=== PATIENT | male | born 1980 | race Caucasian/White ===

== ENCOUNTER 2017-04-19 16:08 | Inpatient (IN) | payer OTHER ==
[~2017-04-19] VITALS: Ht 180.3 cm; Wt 78.2 kg
--- OUTSIDE RECORDS SUMMARY | 2017-04-19 22:48 | XMS REPORT ---
Author Author ARY BURNETT Organization [facility] Address [address] [place] [address] Care Team Providers Care Process Coach Name Role Phone ARY BURNETT Unavailable PROBLEMS Type Condition ICD9-CM Code LON57-FU Code Onset Dates Condition Status SNOMED Code Problem Uncomplicated alcohol dependence F10.20 Active 42790192 Problem Episode of recurrent major depressive disorder, unspecified depression episode severity F33.9 Active 636267345 Problem Alcohol abuse F10.10 Active 19012861 ALLERGIES No Information SOCIAL HISTORY Never Assessed PLAN OF CARE Activity Details Follow Up 2 - 3 Days Reason: VITAL SIGNS MEDICATIONS Unknown Medications RESULTS No Results PROCEDURES Procedure Date Ordered Result Body Site Alcohol and/or drug services Jul 31, 2016 IMMUNIZATIONS No Known Immunizations
--- OUTSIDE RECORDS SUMMARY | 2017-04-19 22:48 | XMS REPORT ---
Author Author ARY BURNETT Organization [facility] Address [address] [place] [address] Care Team Providers Care Bed Manager Name Role Phone ARY BURNETT Unavailable PROBLEMS Type Condition ICD9-CM Code VSO63-PY Code Onset Dates Condition Status SNOMED Code Problem Uncomplicated alcohol dependence F10.20 Active 84257926 Problem Episode of recurrent major depressive disorder, unspecified depression episode severity F33.9 Active 004039052 Problem Alcohol abuse F10.10 Active 52910733 ALLERGIES No Information SOCIAL HISTORY Never Assessed PLAN OF CARE VITAL SIGNS MEDICATIONS Unknown Medications RESULTS No Results PROCEDURES Procedure Date Ordered Result Body Site Alcohol and/or drug services August 27, 2016 IMMUNIZATIONS No Known Immunizations
--- OUTSIDE RECORDS SUMMARY | 2017-04-19 22:48 | XMS REPORT ---
Author Author ASHLEY WATERS Organization [facility] Address [address] [place] [address] Care Team Providers Care Contract Runner Name Role Phone ASHLEY WATERS Unavailable PROBLEMS Type Condition ICD9-CM Code FQT60-GJ Code Onset Dates Condition Status SNOMED Code Problem Alcohol abuse F10.10 Active 81466216 Problem Episode of recurrent major depressive disorder, unspecified depression episode severity F33.9 Active 164899575 Assessment Episode of recurrent major depressive disorder, unspecified depression episode severity F33.9 May, Active 401365568 ALLERGIES Unknown Allergies SOCIAL HISTORY No smoking Hx information available PLAN OF CARE VITAL SIGNS MEDICATIONS Unknown Medications RESULTS No Results PROCEDURES Procedure Date Ordered Related Diagnosis Body Site Psychotherapy, patient &/family, 30 minutes, established patient May 07, 2016 IMMUNIZATIONS No Known Immunizations
[2017-04-19] MEDS ORDERED: oxyCODONE/APAP 7.5-325 MG (PERCOCET 7.5) TABLET ONE (22:49)
--- OUTSIDE RECORDS SUMMARY | 2017-04-19 22:49 | XMS REPORT ---
Author Author ASHLEY WATERS Organization [employer] Address Unknown Phone Unavailable Care Team Providers Care Slate Roofer Helper Name Role Phone ASHLEY WATERS CP Unavailable Allergies No Known Allergies Problems No Known Problems Medications No Known Medications Results No Known Results Summary Purpose [employer] Submission
--- OUTSIDE RECORDS SUMMARY | 2017-04-19 22:49 | XMS REPORT ---
Author Author ARY BURNETT Organization [facility] Address [address] [place] [address] Care Team Providers Care Wide Area Network Systems Administrator Name Role Phone ARY BURNETT Unavailable PROBLEMS Type Condition ICD9-CM Code GCX77-[id number] Code Onset Dates Condition Status SNOMED Code Problem Uncomplicated alcohol dependence F10.20 Active 32688112 Problem Episode of recurrent major depressive disorder, unspecified depression episode severity F33.9 Active 117393984 Problem Alcohol abuse F10.10 Active 80228801 ALLERGIES No Information SOCIAL HISTORY Never Assessed PLAN OF CARE VITAL SIGNS MEDICATIONS Unknown Medications RESULTS No Results PROCEDURES No Known procedures IMMUNIZATIONS No Known Immunizations
--- OUTSIDE RECORDS SUMMARY | 2017-04-19 22:50 | XMS REPORT ---
Author Author ARY BURNETT Organization [facility] Address [address] [place] [address] Care Team Providers Care Plug Shaper Hand Name Role Phone ARY BURNETT Unavailable PROBLEMS Type Condition ICD9-CM Code LDE36-JH Code Onset Dates Condition Status SNOMED Code Problem Uncomplicated alcohol dependence F10.20 Active 21952468 Problem Episode of recurrent major depressive disorder, unspecified depression episode severity F33.9 Active 143598609 Problem Alcohol abuse F10.10 Active 04760436 ALLERGIES Unknown Allergies SOCIAL HISTORY No smoking Hx information available PLAN OF CARE Activity Details Follow Up 1 Week Reason: VITAL SIGNS MEDICATIONS Unknown Medications RESULTS No Results PROCEDURES Procedure Date Ordered Related Diagnosis Body Site Alcohol and/or drug services Jun 04, 2016 IMMUNIZATIONS No Known Immunizations
--- OUTSIDE RECORDS SUMMARY | 2017-04-19 22:50 | XMS REPORT ---
Author Author ASHLEY WATERS Organization [facility] Address [address] [place] [address] Care Team Providers Care Rn Clinical Trials Name Role Phone ASHLEY WATERS Unavailable PROBLEMS Type Condition ICD9-CM Code KWX71-DG Code Onset Dates Condition Status SNOMED Code Problem Uncomplicated alcohol dependence F10.20 Active 36555123 Problem Alcohol abuse F10.10 Active 95301514 Problem Episode of recurrent major depressive disorder, unspecified depression episode severity F33.9 Active 525105828 ALLERGIES Unknown Allergies SOCIAL HISTORY No smoking Hx information available PLAN OF CARE Activity Details Follow Up prn Reason: VITAL SIGNS MEDICATIONS Unknown Medications RESULTS No Results PROCEDURES Procedure Date Ordered Related Diagnosis Body Site Psychotherapy, patient &/family, 30 minutes, established patient Jun 04, 2016 IMMUNIZATIONS No Known Immunizations
--- OUTSIDE RECORDS SUMMARY | 2017-04-19 22:50 | XMS REPORT ---
Author Author ARY BURNETT Organization [facility] Address [address] [place] [address] Care Team Providers Care Alternative Dispute Resolution Mediator Name Role Phone ARY BURNETT Unavailable PROBLEMS Type Condition ICD9-CM Code RYZ31-BN Code Onset Dates Condition Status SNOMED Code Problem Uncomplicated alcohol dependence F10.20 Active 69194471 Problem Episode of recurrent major depressive disorder, unspecified depression episode severity F33.9 Active 402095329 Problem Alcohol abuse F10.10 Active 98295451 ALLERGIES No Information SOCIAL HISTORY Never Assessed PLAN OF CARE Activity Details Follow Up 1 Week Reason: VITAL SIGNS MEDICATIONS Unknown Medications RESULTS No Results PROCEDURES Procedure Date Ordered Result Body Site Alcohol and/or drug services October 30, 2016 IMMUNIZATIONS No Known Immunizations
--- OUTSIDE RECORDS SUMMARY | 2017-04-19 22:50 | XMS REPORT ---
Author Author ARY BURNETT Organization [facility] Address [address] [place] [address] Care Team Providers Care Broadcast Meteorologist Name Role Phone ARY BURNETT Unavailable PROBLEMS Type Condition ICD9-CM Code SMX10-AI Code Onset Dates Condition Status SNOMED Code Problem Uncomplicated alcohol dependence F10.20 Active 11107786 Problem Episode of recurrent major depressive disorder, unspecified depression episode severity F33.9 Active 142706632 Problem Alcohol abuse F10.10 Active 41963848 ALLERGIES No Information SOCIAL HISTORY Never Assessed PLAN OF CARE VITAL SIGNS MEDICATIONS Unknown Medications RESULTS No Results PROCEDURES Procedure Date Ordered Result Body Site Alcohol and/or drug services August 13, 2016 IMMUNIZATIONS No Known Immunizations
--- OUTSIDE RECORDS SUMMARY | 2017-04-19 22:50 | XMS REPORT ---
Author Author ARY BURNETT Organization [facility] Address [address] [place] [address] Care Team Providers Care [place]ing Supervisor Name Role Phone ARY BURNETT Unavailable PROBLEMS Type Condition ICD9-CM Code FKW11-YQ Code Onset Dates Condition Status SNOMED Code Problem Uncomplicated alcohol dependence F10.20 Active 88222123 Problem Episode of recurrent major depressive disorder, unspecified depression episode severity F33.9 Active 919084424 Problem Alcohol abuse F10.10 Active 43786158 ALLERGIES Unknown Allergies SOCIAL HISTORY No smoking Hx information available PLAN OF CARE Activity Details Follow Up 1 Week Reason: VITAL SIGNS MEDICATIONS Unknown Medications RESULTS No Results PROCEDURES Procedure Date Ordered Related Diagnosis Body Site Alcohol and/or drug services Jun 24, 2016 IMMUNIZATIONS No Known Immunizations
--- OUTSIDE RECORDS SUMMARY | 2017-04-19 22:50 | XMS REPORT ---
Author Author ASHLEY WATERS Organization [employer] Address Unknown Phone Unavailable Care Team Providers Care Bog Cutter Name Role Phone ASHLEY WATERS CP Unavailable Allergies No Known Allergies Problems Problem Type Condition Code Onset Dates Condition Status Assessment Uncomplicated alcohol dependence F10.20 Active Assessment Depressive disorder, not elsewhere classified F32.9 Active Medications No Known Medications Procedures Procedure Coding System Code Date Psychotherapy, patient &/family, 30 minutes, new patient CPT-4 69215 Feb Results No Known Results Summary Purpose [employer] Submission
--- OUTSIDE RECORDS SUMMARY | 2017-04-19 22:50 | XMS REPORT ---
Author Author ARY BURNETT Organization [facility] Address [address] [place] [address] Care Team Providers Care Metrology Manager Name Role Phone ARY BURNETT Unavailable PROBLEMS Type Condition ICD9-CM Code FDT96-UA Code Onset Dates Condition Status SNOMED Code Problem Uncomplicated alcohol dependence F10.20 Active 55609648 Problem Episode of recurrent major depressive disorder, unspecified depression episode severity F33.9 Active 481232747 Problem Alcohol abuse F10.10 Active 87652036 ALLERGIES No Information SOCIAL HISTORY Never Assessed PLAN OF CARE Activity Details Follow Up 1 Week Reason: VITAL SIGNS MEDICATIONS Unknown Medications RESULTS No Results PROCEDURES Procedure Date Ordered Result Body Site Alcohol and/or drug services Jul 23, 2016 IMMUNIZATIONS No Known Immunizations
--- OUTSIDE RECORDS SUMMARY | 2017-04-19 22:50 | XMS REPORT ---
Author Author ARY BURNETT Organization [facility] Address [address] [place] [address] Care Team Providers Care Cad Detailer Name Role Phone ARY BURNETT Unavailable PROBLEMS Type Condition ICD9-CM Code EGS27-BV Code Onset Dates Condition Status SNOMED Code Problem Uncomplicated alcohol dependence F10.20 Active 04525846 Problem Episode of recurrent major depressive disorder, unspecified depression episode severity F33.9 Active 730653250 Problem Alcohol abuse F10.10 Active 67037619 ALLERGIES No Information SOCIAL HISTORY Never Assessed PLAN OF CARE Activity Details Follow Up 1 Week Reason: VITAL SIGNS MEDICATIONS Unknown Medications RESULTS No Results PROCEDURES Procedure Date Ordered Result Body Site Alcohol and/or drug services Aug 04, 2016 IMMUNIZATIONS No Known Immunizations
--- OUTSIDE RECORDS SUMMARY | 2017-04-19 22:51 | XMS REPORT ---
Author Author ARY BURNETT Organization [facility] Address [address] [place] [address] Care Team Providers Care Livestock Dealer Name Role Phone ARY BURNETT Unavailable PROBLEMS Type Condition ICD9-CM Code TJR54-TA Code Onset Dates Condition Status SNOMED Code Problem Uncomplicated alcohol dependence F10.20 Active 43838076 Problem Alcohol abuse F10.10 Active 12839064 Problem Episode of recurrent major depressive disorder, unspecified depression episode severity F33.9 Active 446230516 ALLERGIES Unknown Allergies SOCIAL HISTORY No smoking Hx information available PLAN OF CARE Activity Details Follow Up 1 Week Reason: VITAL SIGNS MEDICATIONS Unknown Medications RESULTS No Results PROCEDURES Procedure Date Ordered Related Diagnosis Body Site AUDIT/DAST, OVER 30 MIN Apr 29, 2016 IMMUNIZATIONS No Known Immunizations
--- OUTSIDE RECORDS SUMMARY | 2017-04-19 22:52 | XMS REPORT ---
Author Author ARY BURNETT Organization [facility] Address [address] [place] [address] Care Team Providers Care Manager Treasury Name Role Phone ARY BURNETT Unavailable PROBLEMS Type Condition ICD9-CM Code PMB43-CJ Code Onset Dates Condition Status SNOMED Code Problem Uncomplicated alcohol dependence F10.20 Active 80861639 Problem Episode of recurrent major depressive disorder, unspecified depression episode severity F33.9 Active 167277071 Problem Alcohol abuse F10.10 Active 70961305 ALLERGIES No Information SOCIAL HISTORY Never Assessed PLAN OF CARE VITAL SIGNS MEDICATIONS Unknown Medications RESULTS No Results PROCEDURES Procedure Date Ordered Result Body Site Alcohol and/or drug services Jul 30, 2016 IMMUNIZATIONS No Known Immunizations
--- OUTSIDE RECORDS SUMMARY | 2017-04-19 22:53 | XMS REPORT ---
Author Author ARY BURNETT Organization [facility] Address [address] [place] [address] Care Team Providers Care Music Writer Name Role Phone ARY BURNETT Unavailable PROBLEMS Type Condition ICD9-CM Code OPE10-OR Code Onset Dates Condition Status SNOMED Code Problem Uncomplicated alcohol dependence F10.20 Active 56878079 Problem Episode of recurrent major depressive disorder, unspecified depression episode severity F33.9 Active 300321313 Problem Alcohol abuse F10.10 Active 66927940 ALLERGIES Unknown Allergies SOCIAL HISTORY No smoking Hx information available PLAN OF CARE Activity Details Follow Up 1 Week Reason: VITAL SIGNS MEDICATIONS Unknown Medications RESULTS No Results PROCEDURES Procedure Date Ordered Related Diagnosis Body Site Alcohol and/or drug services May 06, 2016 IMMUNIZATIONS No Known Immunizations
--- OUTSIDE RECORDS SUMMARY | 2017-04-19 22:53 | XMS REPORT ---
Author Author ARY BURNETT Organization [facility] Address [address] [place] [address] Care Team Providers Care Dairy Cattle Farm Manager Name Role Phone ARY BURNETT Unavailable PROBLEMS Type Condition ICD9-CM Code AWZ40-TN Code Onset Dates Condition Status SNOMED Code Problem Alcohol abuse F10.10 Active 75200694 Problem Episode of recurrent major depressive disorder, unspecified depression episode severity F33.9 Active 629775532 ALLERGIES Unknown Allergies SOCIAL HISTORY No smoking Hx information available PLAN OF CARE VITAL SIGNS MEDICATIONS Unknown Medications RESULTS No Results PROCEDURES No Known procedures IMMUNIZATIONS No Known Immunizations
--- OUTSIDE RECORDS SUMMARY | 2017-04-19 22:53 | XMS REPORT ---
Author Author ARY BURNETT Organization [facility] Address [address] [place] [address] Care Team Providers Care Wic Site Coordinator Name Role Phone ARY BURNETT Unavailable PROBLEMS Type Condition ICD9-CM Code GJX86-EB Code Onset Dates Condition Status SNOMED Code Problem Uncomplicated alcohol dependence F10.20 Active 40140128 Problem Episode of recurrent major depressive disorder, unspecified depression episode severity F33.9 Active 704726394 Problem Alcohol abuse F10.10 Active 50174828 ALLERGIES No Information SOCIAL HISTORY Never Assessed PLAN OF CARE VITAL SIGNS MEDICATIONS Unknown Medications RESULTS No Results PROCEDURES Procedure Date Ordered Result Body Site Alcohol and/or drug services August 06, 2016 IMMUNIZATIONS No Known Immunizations
--- OUTSIDE RECORDS SUMMARY | 2017-04-19 22:53 | XMS REPORT ---
Author Author ARY BURNETT Organization [facility] Address [address] [place] [address] Care Team Providers Care Wire Hanger Name Role Phone ARY BURNETT Unavailable PROBLEMS Type Condition ICD9-CM Code ZRM45-LH Code Onset Dates Condition Status SNOMED Code Problem Uncomplicated alcohol dependence F10.20 Active 89386097 Problem Episode of recurrent major depressive disorder, unspecified depression episode severity F33.9 Active 319506958 Problem Alcohol abuse F10.10 Active 53065592 ALLERGIES No Information SOCIAL HISTORY Never Assessed PLAN OF CARE Activity Details Follow Up 1 Week Reason: VITAL SIGNS MEDICATIONS Unknown Medications RESULTS No Results PROCEDURES Procedure Date Ordered Result Body Site Alcohol and/or drug services August 11, 2016 IMMUNIZATIONS No Known Immunizations
--- OUTSIDE RECORDS SUMMARY | 2017-04-19 22:53 | XMS REPORT ---
Author Author ASHLEY WATERS Organization [employer] Address Unknown Phone Unavailable Care Team Providers Care Organizational Development Director Name Role Phone ASHLEY WATERS CP Unavailable Allergies No Known Allergies Problems Problem Type Condition Code Onset Dates Condition Status Problem Episode of recurrent major depressive disorder, unspecified depression episode severity F33.9 Active Assessment Alcohol abuse F10.10 Active Problem Alcohol abuse F10.10 Active Assessment Episode of recurrent major depressive disorder, unspecified depression episode severity F33.9 Active Medications No Known Medications Procedures Procedure Coding System Code Date Psychotherapy, patient &/family, 30 minutes, established patient CPT-4 15103 Apr 23, 2016 Results No Known Results Summary Purpose [employer] Submission
--- OUTSIDE RECORDS SUMMARY | 2017-04-19 22:53 | XMS REPORT ---
Author Author ARY BURNETT Organization [facility] Address [address] [place] [address] Care Team Providers Care Latex Spooler Name Role Phone ARY BURNETT Unavailable PROBLEMS Type Condition ICD9-CM Code PCK22-QU Code Onset Dates Condition Status SNOMED Code Problem Uncomplicated alcohol dependence F10.20 Active 51214667 Problem Episode of recurrent major depressive disorder, unspecified depression episode severity F33.9 Active 060903074 Problem Alcohol abuse F10.10 Active 97470825 ALLERGIES No Information SOCIAL HISTORY Never Assessed PLAN OF CARE Activity Details Follow Up 1 Week, wednesday10/20/16 @8:30am to 9am Reason:subab f/u VITAL SIGNS MEDICATIONS Unknown Medications RESULTS No Results PROCEDURES Procedure Date Ordered Result Body Site Alcohol and/or drug services October 13, 2016 IMMUNIZATIONS No Known Immunizations
--- OUTSIDE RECORDS SUMMARY | 2017-04-19 22:53 | XMS REPORT ---
Author Author ARY BURNETT Organization [facility] Address [address] [place] [address] Care Team Providers Care Clerk Guide Name Role Phone ARY BURNETT Unavailable PROBLEMS Type Condition ICD9-CM Code KVK54-NO Code Onset Dates Condition Status SNOMED Code Problem Uncomplicated alcohol dependence F10.20 Active 43481337 Problem Episode of recurrent major depressive disorder, unspecified depression episode severity F33.9 Active 302345655 Problem Alcohol abuse F10.10 Active 72848254 ALLERGIES No Information SOCIAL HISTORY Never Assessed PLAN OF CARE VITAL SIGNS MEDICATIONS Unknown Medications RESULTS No Results PROCEDURES Procedure Date Ordered Result Body Site Alcohol and/or drug services August 20, 2016 IMMUNIZATIONS No Known Immunizations
--- OUTSIDE RECORDS SUMMARY | 2017-04-19 22:53 | XMS REPORT ---
Author Author ARY BURNETT Organization [facility] Address [address] [place] [address] Care Team Providers Care Quarter Section Ironer Name Role Phone ARY BURNETT Unavailable PROBLEMS Type Condition ICD9-CM Code YOB17-JA Code Onset Dates Condition Status SNOMED Code Problem Uncomplicated alcohol dependence F10.20 Active 90064028 Problem Episode of recurrent major depressive disorder, unspecified depression episode severity F33.9 Active 178339930 Problem Alcohol abuse F10.10 Active 68197606 ALLERGIES Unknown Allergies SOCIAL HISTORY No smoking Hx information available PLAN OF CARE VITAL SIGNS MEDICATIONS Unknown Medications RESULTS No Results PROCEDURES Procedure Date Ordered Related Diagnosis Body Site Alcohol and/or drug services Jun 24, 2016 IMMUNIZATIONS No Known Immunizations
--- OUTSIDE RECORDS SUMMARY | 2017-04-19 22:55 | XMS REPORT ---
Author Author ARY BURNETT Organization [facility] Address [address] [place] [address] Care Team Providers Care Pre K Lead Teacher Name Role Phone ARY BURNETT Unavailable PROBLEMS Type Condition ICD9-CM Code PRZ85-YM Code Onset Dates Condition Status SNOMED Code Problem Uncomplicated alcohol dependence F10.20 Active 88727915 Problem Episode of recurrent major depressive disorder, unspecified depression episode severity F33.9 Active 079495921 Problem Alcohol abuse F10.10 Active 24808942 ALLERGIES No Information SOCIAL HISTORY Never Assessed PLAN OF CARE Activity Details Follow Up 1 Week Reason: VITAL SIGNS MEDICATIONS Unknown Medications RESULTS No Results PROCEDURES Procedure Date Ordered Result Body Site Alcohol and/or drug services August 18, 2016 IMMUNIZATIONS No Known Immunizations
--- OUTSIDE RECORDS SUMMARY | 2017-04-19 22:55 | XMS REPORT ---
Author Author ARY BURNETT Organization [facility] Address [address] [place] [address] Care Team Providers Care Poly Packer And Heat Sealer Name Role Phone ARY BURNETT Unavailable PROBLEMS Type Condition ICD9-CM Code AGU74-CY Code Onset Dates Condition Status SNOMED Code Problem Uncomplicated alcohol dependence F10.20 Active 88489660 Problem Episode of recurrent major depressive disorder, unspecified depression episode severity F33.9 Active 070774913 Problem Alcohol abuse F10.10 Active 99904248 ALLERGIES Unknown Allergies SOCIAL HISTORY No smoking Hx information available PLAN OF CARE Activity Details Follow Up 1 Week Reason: VITAL SIGNS MEDICATIONS Unknown Medications RESULTS No Results PROCEDURES Procedure Date Ordered Related Diagnosis Body Site Alcohol and/or drug services Jul 01, 2016 IMMUNIZATIONS No Known Immunizations
--- OUTSIDE RECORDS SUMMARY | 2017-04-19 22:55 | XMS REPORT ---
Author Author ARY BURNETT Organization [facility] Address [address] [place] [address] Care Team Providers Care Global Position System Technician Name Role Phone ARY BURNETT Unavailable PROBLEMS Type Condition ICD9-CM Code TII18-YL Code Onset Dates Condition Status SNOMED Code Problem Uncomplicated alcohol dependence F10.20 Active 96590707 Problem Episode of recurrent major depressive disorder, unspecified depression episode severity F33.9 Active 629021361 Problem Alcohol abuse F10.10 Active 74901404 ALLERGIES No Information SOCIAL HISTORY Never Assessed PLAN OF CARE VITAL SIGNS MEDICATIONS Unknown Medications RESULTS No Results PROCEDURES No Known procedures IMMUNIZATIONS No Known Immunizations
--- OUTSIDE RECORDS SUMMARY | 2017-04-19 22:55 | XMS REPORT ---
Author Author ARY BURNETT Organization [facility] Address [address] [place] [address] Care Team Providers Care Retirement Plan Counselor Name Role Phone ARY BURNETT Unavailable PROBLEMS Type Condition ICD9-CM Code FHE44-VN Code Onset Dates Condition Status SNOMED Code Problem Uncomplicated alcohol dependence F10.20 Active 21360211 Problem Episode of recurrent major depressive disorder, unspecified depression episode severity F33.9 Active 902997138 Problem Alcohol abuse F10.10 Active 67390728 ALLERGIES Unknown Allergies SOCIAL HISTORY No smoking Hx information available PLAN OF CARE Activity Details Follow Up 1 Week Reason: VITAL SIGNS MEDICATIONS Unknown Medications RESULTS No Results PROCEDURES Procedure Date Ordered Related Diagnosis Body Site Alcohol and/or drug services Jun 18, 2016 IMMUNIZATIONS No Known Immunizations
[2017-04-19 23:00] VITALS: BP 106/67
[2017-04-19] MEDS: oxyCODONE/APAP 7.5-325 MG (PERCOCET 7.5) TABLET PO PRN (23:01)
[2017-04-20] MEDS ORDERED: BACLOFEN 10 MG (LIORESAL) TAB ONE (01:08)
[2017-04-20] MEDS: BACLOFEN 10 MG (LIORESAL) TAB PO PRN ×2 (01:18→06:27)
[2017-04-20] MEDS: oxyCODONE/APAP 7.5-325 MG (PERCOCET 7.5) TABLET PO PRN ×3 (03:10→19:56)
[2017-04-20 05:40] VITALS: BP 104/68
[2017-04-20] MEDS ORDERED: fentaNYL PATCH 50 MCG (DURAGESIC) TD SCH (07:00)
[2017-04-20] MEDS ORDERED: INFLUENZA TRIvalent 2017-2018 0.5 ML/45 MCG SYR IM ONE (07:30)
[2017-04-20] MEDS: BACITRACIN OINTMENT 28 GM TUBE TOP SCH (08:12)
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
--- NOTE | 2017-04-20 09:32 | PM&R Post Admission Assessment ---
Post Admission Physician Asses The preadmission screen agrees with the post admission assessment that the patient is a good candidate for inpatient rehabilitation. The patient will have a comprehensive program of inpatient rehabilitation with a goal of maximizing level of functional independence prior to discharge home with his father. The patient will have PT/OT ninety minutes per day, each discipline, five days a week for gait, strengthening, conditioning, balance, ADLs, any patient/family/caregiver training as necessary. Speech therapy to do cognitive assessment and treat as indicated. Rehabilitation nursing to assist with bowel, bladder,Nelson catheter care skin, wound care, medication administration, pain management. Pressure Vessel Inspector to assist with discharge planning, community reentry. SCD's for DVT prophylaxis. He appears to be well motivated to participate in three hours of therapy a day. He should be able to tolerate three hours of therapy a day from a medical and surgical standpoint. He should benefit from the three hours of therapy a day. He has a reasonable discharge plan, reasonable discharge rehabilitation goals and a supportive family. He has various comorbidities that need to be closely monitored with medications and treatments adjusted on a daily basis as needed. These include: pain management Postop constipation Barriers to discharge for this patient who had been independent prior to this are for him to be modified independent to supervision for ADLs and mobility skills prior to discharge home with his father, so as to lessen the burden of the caregivers. Risks for this patient include: 1. Fall 2. Fracture 3. DVT 4. Pulmonary embolism 5. Wound infection 6. Skin breakdown 7. Contractures 8. Poorly controlled pain 9. Urinary retention 10. UTI 11. Respiratory infection 12. Aspiration 13. Constipation Estimated Length of Stay: 10 days Prognosis: Rehab prognosis appears good for goal of discharge home with his afther modified independent to supervision for ADLs and mobility skills. OMAR MEYER MD Apr 20, 2017 09:32
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
--- NOTE | 2017-04-20 14:11 | Occupational Ther Daily Note ---
OT Current Status-Daily Note Subjective Pt in bed, agrees to treatment. Pt states he was able to rest and feels a little bit better. Still having back and neck pain, but does not rate. Mental Status/Objective Functional [place] Measure 0=Not Assessed/NA 4=Minimal Assistance 1=Total Assistance 5=Supervision or Setup 2=Maximal Assistance 6=Modified [place] 3=Moderate Assistance 7=Complete [place] Attachments: Other-See Comments (cervical collar) ADL-Treatment Pt supine to sit with supervision. Pt states he hasn't eaten lunch yet. Pt able to order food independently. Pt agrees to sponge bath this pm. Sponge bath completed seated EOB. Upper body bathing completed with set up and increased time. Pt able to wash bilateral legs with CGA for balance while seated. Pt declined to doff shorts during bathing. Don pullover shirt with SBA. Pt doffed/ donned socks with SBA while seated EOB. Pt requested to stand at sink to wash face and head. Pt sit to stand with CGA. Gait to restroom with FWW. Pt stood at sink with SBA to wash face. Pt's meal tray arrived. Pt transferred to chair with CGA using FWW, cues for safety. Pt requires increased time for ADL tasks. Rest breaks taken throughout treatment secondary to fatigue and pain. Pt sitting in chair with needs met, eating lunch after session. Functional [place] Measure 0=Not Assessed/NA 4=Minimal Assistance 1=Total Assistance 5=Supervision or Setup 2=Maximal Assistance 6=Modified [place] 3=Moderate Assistance 7=Complete IndependenceIRFPAI Quality Coding Scale 6 Independent with activity with or without an assistive device 5 Patient requires set up or clean up by helper. Patient completes activity by themselves 4 Supervision or touching assist (CGA). [place] provide cues , steadying assist 3 The helper provides less than half the effort to complete the activity 2 The helper provides more than half the effort to complete the activity 1 Dependent. The helper does all the effort to complete an activity 7 Patient refused to complete or attempt activity 9 The patient did not perform the activity before the current illness or injury 88 Not attempted due to Medical conditions or safety concerns Bathing (FIM): 4 Upper Body (FIM): 5 Upper Body Dressing (QC): 4 On/Off Footwear (QC): 4 Education OT Patient Education: Safety issues Teaching Recipient: Patient Teaching Methods: Discussion Response to Teaching: Verbalize Understanding, Reinforcement Needed OT Short Term Goals Short Term Goals Time Frame: Apr 27, 2017 Grooming(FIM): 5 Bathing(FIM): 4 Upper Body Dressing(FIM): 4 Lower Body Dressing(FIM): 4 Toileting(FIM): 4 Transfers (B,C,W/C) (FIM): 5 Toilet/Commode Transfer(FIM): 5 Additional Short Term Goals: 1-Demonstrate ADL Tasks, 2-Verbalize Understanding , 3-ImproveStrength/Amber 1=Demonstrate adherence to instructed precautions during ADL tasks. 2=Patient will verbalize/demonstrate understanding of assistive devices/ modifications for ADL. 3=Patient will improve strength/tolerance for activity to enable patient to perform ADL's. OT Internal Control Consultant Goals Internal Control Consultant Goals Time Frame: May 11, 2017 Eating (FIM): 6 Eating (QC): 6 Groomin Oral Hygiene (QC): 6 Bathing(FIM): 5 Shower/Bathe Self (QC): 5 Upper Body Dressing(FIM): 6 Upper Body Dressing (QC): 6 Lower Body Dressing(FIM): 5 Lower Body Dressing (QC): 5 On/Off Footwear (QC): 5 Toileting(FIM): 6 Toileting Hygiene (QC): 6 Toilet/Commode Transfer(FIM): 6 Toilet/Commode Transfer (QC): 6 Shower Transfer(FIM): 5 Additional Goals: 2-Verbalize Understanding, 3-ImproveStrength/Amber 1=Demonstrate adherence to instructed precautions during ADL tasks. 2=Patient will verbalize/demonstrate understanding of assistive devices/ modifications for ADL. 3=Patient will improve strength/tolerance for activity to enable patient to perform ADL's. OT Education/Plan Problem List/Assessment Pt to benefit from skilled OT intervention for ADL training, transfers, strengthening, and home safety education to improve level of function and allow safe discharge. Discharge Recommendations Plan/Recommendations: Continue POC Treatment Plan/Plan of Care Patient would benefit from OT for education, treatment and training to promote independence in ADL's, mobility, safety and/or upper extremity function for ADL' s. Plan of Care: ADL Retraining, Functional Mobility, Group Exercise/Act as Ind, UE Funct Exercise/Act Treatment Duration: May 11, 2017 Frequency: At least 5 of 7 days/Wk (IRF) Estimated Hrs Per Day: 1.5 hours per day Agreement: Yes Rehab Potential: Fair Time/GCodes Start Time: 13:00 Stop Time: 13:45 Total Time Billed (hr/min): 45 Billed Treatment Time 1 visit, ADLx3(45minutes) MELISA BRUNNER OT Apr 20, 2017 14:11
--- NOTE | 2017-04-20 15:25 | Physical Therapy Daily Note ---
PT Daily Note-Current Subjective Patient is seated in recliner upon PT entering the room. He states his mid to upper back is sore this p.m. He agrees to PT. Pain Numeric Pain Scale: 5-Moderate Pain Location Body Site: Back Appearance Patient appears healthy. He is left in his bed with call light and phone in reach. Mental Status Patient Orientation: Normal For Age Attachments: Nelson Catheter Transfers Functional [place] Measure 0=Not Assessed/NA 4=Minimal Assistance 1=Total Assistance 5=Supervision or Setup 2=Maximal Assistance 6=Modified [place] 3=Moderate Assistance 7=Complete IndependenceIRFPAI Quality Coding Scale 6 Independent with activity with or without an assistive device 5 Patient requires set up or clean up by helper. Patient completes activity by themselves 4 Supervision or touching assist (CGA). [place] provide cues , steadying assist 3 The helper provides less than half the effort to complete the activity 2 The helper provides more than half the effort to complete the activity 1 Dependent. The helper does all the effort to complete an activity 7 Patient refused to complete or attempt activity 9 The patient did not perform the activity before the current illness or injury 88 Not attempted due to Medical conditions or safety concerns Transfers (B, C, W/C) (FIM): 5 Scootin Rollin Supine to/from Sit: 5 Sit to/from Stand: 5 Patient performs all observed transfers with SBA. Gait Training Gait (FIM): 5 Distance: >300' Gait Level of Assist: 5 Gait Persons Needed: 1 Gait Assistive Device: FWW Patient walks with normal reciprocal gait pattern in FWW. Exercises Standing: Hip Abduction, Hamstring curls, Heel/toe raises, Marching, Sit to Stand Standing Reps: 20 Assessment Current Status: Good Progress Patient has good tolerance for exercise. Patient noted that he is having improved strength slowly since the injury. PT will continue muscular strengthening exercise along with gait and other modes of intervention. PT Short Term Goals Short Term Goals Time Frame: Apr 27, 2017 Transfers (B,C,W/C) (FIM): 5 Gait (FIM): 5 Gait Distance Comment: 300' Gait Level of Assist: 5 Gait Assistive Device: FWW PT Spout Liner Goals Detention Goals PT Detention Goals Time Frame: May 11, 2017 Transfers (B,C,W/C) (FIM): 6 Sit to Lying (QC): 6 Lying-Sitting on Side/Bed(QC): 6 Sit to Stand (QC): 6 Rollin Roll Left to Right (QC): 6 Car Transfer (QC): 6 Gait (FIM): 6 Distance: 400' Walk 10 feet (QC): 6 Walk 10ft-Uneven Surface(QC): 6 Walk 50ft with 2 Turns (QC): 6 Walk 150 ft (QC): 6 Gait Assistive Device: FWW Stairs (FIM): 5 # of Steps: 12 1 Step (curb) (QC): 4 4 Steps (QC): 4 12 Steps (QC): 4 Stairs Level Of Assist: 5 PT Plan Problem List Problem List: Activity Tolerance, Functional Strength, Safety, Balance, Gait Treatment/Plan Treatment Plan: Continue Plan of Care Treatment Plan: Bed Mobility, Education, Functional Activity Amber, Functional Strength, Group Therapy, Gait, Safety, Therapeutic Exercise, Transfers Treatment Duration: May 11, 2017 Frequency: At least 5 of 7 days/Wk (IRF) Estimated Hrs Per Day: 1.5 hours per day Patient and/or Family Agrees t: Yes Time/GCodes Time In: 1430 Time Out: 1518 Total Billed Treatment Time: 48 Total Billed Treatment 1 visit EX x2 35 min GT 13 min ROSEMARIE ALVAREZ PT Apr 20, 2017 15:25
[2017-04-20 18:00] VITALS: BP 114/69
[2017-04-20] MEDS ORDERED: MILK OF MAGNESIA 400 MG/5 ML 30 ML UDC PO PRN (20:00)
[2017-04-20] MEDS: SENNA W/DOCUSATE (SENOKOT S) TABLET PO SCH (21:42)
[2017-04-21] MEDS: oxyCODONE/APAP 7.5-325 MG (PERCOCET 7.5) TABLET PO PRN ×5 (03:35→22:05)
[2017-04-21 05:05] VITALS: BP 118/64
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
[2017-04-21] MEDS: SENNA W/DOCUSATE (SENOKOT S) TABLET PO SCH ×2 (09:01→20:22)
[2017-04-21] MEDS: BACLOFEN 10 MG (LIORESAL) TAB PO PRN (09:01)
--- NOTE | 2017-04-21 09:29 | Physical Therapy Daily Note ---
PT Daily Note-Current Subjective Pt. up in recliner upon arrival. States he is having neck and head pain at 9/ 10. States he cant sleep for more than 2-3 hrs at a time and feels like no change in position helps. Agrees to Rx and requests an incentive spirometer. Pain Numeric Pain Scale: 9 Location: Posterior Location Body Site: Neck Pain Description: Pressure Comment: pt. grimaces with eyes closed and moans, requests pain meds as well as musc Mental Status Patient Orientation: Normal For Age Attachments: Other-See Comments (neck brace) Transfers Functional [place] Measure 0=Not Assessed/NA 4=Minimal Assistance 1=Total Assistance 5=Supervision or Setup 2=Maximal Assistance 6=Modified [place] 3=Moderate Assistance 7=Complete IndependenceIRFPAI Quality Coding Scale 6 Independent with activity with or without an assistive device 5 Patient requires set up or clean up by helper. Patient completes activity by themselves 4 Supervision or touching assist (CGA). [place] provide cues , steadying assist 3 The helper provides less than half the effort to complete the activity 2 The helper provides more than half the effort to complete the activity 1 Dependent. The helper does all the effort to complete an activity 7 Patient refused to complete or attempt activity 9 The patient did not perform the activity before the current illness or injury 88 Not attempted due to Medical conditions or safety concerns Transfers (B, C, W/C) (FIM): 6 Scootin Rollin Supine to/from Sit: 6 Sit to/from Stand: 6 Gait Training Does the Patient Walk?: Yes Gait (FIM): 5 Distance (FIM): 3=150 ft (300x3) Gait Level of Assist: 5 Gait Persons Needed: 1 Gait Assistive Device: FWW pt. with pain and some min staggering needed SBA Exercises Supine Ex: Ankle pumps, Quad Set, Rolling, Glut sets, Heel Slides, Scooting, Hip abd/add Supine Reps: 12 Seated Therapy Exercises: Ankle pumps, Sit to stand, Long arc quads, Hip flexion Seated Reps: 12 NuStep Minutes: 12 NuStep Workload: 5 Treatments leg presses on nustep 15 reps. In bathroom for handwashing and stood to try to blow nose as he c/o it feels stuffy as well as his throat and lungs "have junk in them" IS used 6 reps with goal of 2750. pt. received moist heat to mid traps sitting up in chair for 10 min followed by gentle massage low to mid traps. no change in pain level. Nurse administered meds Assessment Current Status: Fair Progress pain PT Short Term Goals Short Term Goals Time Frame: Apr 27, 2017 Transfers (B,C,W/C) (FIM): 5 Gait (FIM): 5 Gait Distance Comment: 300' Gait Level of Assist: 5 Gait Assistive Device: FWW PT Quality Control Head Goals Custodial Goals PT Custodial Goals Time Frame: May 11, 2017 Transfers (B,C,W/C) (FIM): 6 Sit to Lying (QC): 6 Lying-Sitting on Side/Bed(QC): 6 Sit to Stand (QC): 6 Rollin Roll Left to Right (QC): 6 Car Transfer (QC): 6 Gait (FIM): 6 Distance: 400' Walk 10 feet (QC): 6 Walk 10ft-Uneven Surface(QC): 6 Walk 50ft with 2 Turns (QC): 6 Walk 150 ft (QC): 6 Gait Assistive Device: FWW Stairs (FIM): 5 # of Steps: 12 1 Step (curb) (QC): 4 4 Steps (QC): 4 12 Steps (QC): 4 Stairs Level Of Assist: 5 PT Plan Treatment/Plan Treatment Plan: Continue Plan of Care Treatment Plan: Bed Mobility, Education, Functional Activity Amber, Functional Strength, Group Therapy, Gait, Safety, Therapeutic Exercise, Transfers Treatment Duration: May 11, 2017 Frequency: At least 5 of 7 days/Wk (IRF) Estimated Hrs Per Day: 1.5 hours per day Patient and/or Family Agrees t: Yes Safety Risks/Education Patient Education: Gait Training, Transfer Techniques, Correct Positioning, Disease Process, Safety Issues Teaching Recipient: Patient Teaching Methods: Demonstration, Discussion Response to Teaching: Verbalize Understanding, Return Demonstration, Reinforcement Needed Time/GCodes Time In: 815 Time Out: 930 Total Billed Treatment Time: 75 Total Billed Treatment 1,EX30m,GT30m,FA15m G Codes Necessary: TRIXIE Ervin HOSPICE HOME CARE COORDINATOR Apr 21, 2017 09:29
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
--- NOTE | 2017-04-21 12:59 | Occupational Ther Daily Note ---
OT Current Status-Daily Note Subjective Pt in bed, reports 8/10 pain in back and neck. Pt agrees to therapy. Mental Status/Objective Functional [place] Measure 0=Not Assessed/NA 4=Minimal Assistance 1=Total Assistance 5=Supervision or Setup 2=Maximal Assistance 6=Modified [place] 3=Moderate Assistance 7=Complete [place] ADL-Treatment Pt agrees to ADLs after completing UE activity. Shower not completed at this time secondary to pain. Will attempt tomorrow. Pt completed sponge bath while seated at sink. Pt able to wash all areas with SBA and much increased time. Doff /don pullover shirt with set up. Pt able to don underwear and shorts with SBA. Doff/don socks with SBA. Pt moves slowly and requires increased time for ADL tasks. Functional [place] Measure 0=Not Assessed/NA 4=Minimal Assistance 1=Total Assistance 5=Supervision or Setup 2=Maximal Assistance 6=Modified [place] 3=Moderate Assistance 7=Complete IndependenceIRFPAI Quality Coding Scale 6 Independent with activity with or without an assistive device 5 Patient requires set up or clean up by helper. Patient completes activity by themselves 4 Supervision or touching assist (CGA). [place] provide cues , steadying assist 3 The helper provides less than half the effort to complete the activity 2 The helper provides more than half the effort to complete the activity 1 Dependent. The helper does all the effort to complete an activity 7 Patient refused to complete or attempt activity 9 The patient did not perform the activity before the current illness or injury 88 Not attempted due to Medical conditions or safety concerns Bathing (FIM): 5 Shower/Bathe Self (QC): 4 Lower Body Dressing (FIM): 5 Lower Body Dressing (QC): 4 On/Off Footwear (QC): 5 Shower Transfer(FIM): 0 Other Treatment Pt completed bilateral UE activity while seated upright in bed. Pt completed putty activity to increase strength and coordination. Pt able to remove small beads from putty with increased time. Bilateral hand airport attendant exercises x25 reps with resistance therapy foam to increase airport attendant strength. Pt completed grooved pegboard activity with bilateral hands to increase fine motor coordination/ manipulation skills. Pt able to complete task with increased time. Graded clothespin activity with bilateral hands to increase airport attendant/pinch strength. Pt has mild difficulty with the higher resistance clothespins, but is able to complete activity without assistance. Pt transitions supine <-> sit frequently to attempt to find a more comfortable position. Pt able to complete supine <-> sit with modified independence. Increased time required for tasks secondary to fatigue and pain. Frequent rest breaks taken. Education OT Patient Education: Safety issues Teaching Recipient: Patient Teaching Methods: Discussion Response to Teaching: Verbalize Understanding, Reinforcement Needed OT Short Term Goals Short Term Goals Time Frame: Apr 27, 2017 Grooming(FIM): 5 Bathing(FIM): 4 Upper Body Dressing(FIM): 4 Lower Body Dressing(FIM): 4 Toileting(FIM): 4 Transfers (B,C,W/C) (FIM): 5 Toilet/Commode Transfer(FIM): 5 Additional Short Term Goals: 1-Demonstrate ADL Tasks, 2-Verbalize Understanding , 3-ImproveStrength/Amber 1=Demonstrate adherence to instructed precautions during ADL tasks. 2=Patient will verbalize/demonstrate understanding of assistive devices/ modifications for ADL. 3=Patient will improve strength/tolerance for activity to enable patient to perform ADL's. OT Skilled Nursing Goals [employer] Derrick Operator Goals Time Frame: May 11, 2017 Eating (FIM): 6 Eating (QC): 6 Groomin Oral Hygiene (QC): 6 Bathing(FIM): 5 Shower/Bathe Self (QC): 5 Upper Body Dressing(FIM): 6 Upper Body Dressing (QC): 6 Lower Body Dressing(FIM): 5 Lower Body Dressing (QC): 5 On/Off Footwear (QC): 5 Toileting(FIM): 6 Toileting Hygiene (QC): 6 Toilet/Commode Transfer(FIM): 6 Toilet/Commode Transfer (QC): 6 Shower Transfer(FIM): 5 Additional Goals: 2-Verbalize Understanding, 3-ImproveStrength/Amber 1=Demonstrate adherence to instructed precautions during ADL tasks. 2=Patient will verbalize/demonstrate understanding of assistive devices/ modifications for ADL. 3=Patient will improve strength/tolerance for activity to enable patient to perform ADL's. OT Education/Plan Discharge Recommendations Plan/Recommendations: Continue POC Treatment Plan/Plan of Care Patient would benefit from OT for education, treatment and training to promote independence in ADL's, mobility, safety and/or upper extremity function for ADL' s. Plan of Care: ADL Retraining, Functional Mobility, Group Exercise/Act as Ind, UE Funct Exercise/Act Treatment Duration: May 11, 2017 Frequency: At least 5 of 7 days/Wk (IRF) Estimated Hrs Per Day: 1.5 hours per day Agreement: Yes Rehab Potential: Fair Time/GCodes Start Time: 09:30 Stop Time: 11:15 Total Time Billed (hr/min): 105 Billed Treatment Time 1, visit, ADLx3(45minutes), FA(60minutes) MELISA BRUNNER OT Apr 21, 2017 12:59
--- NOTE | 2017-04-21 14:09 | Occupational Ther Daily Note ---
OT Current Status-Daily Note Subjective Pt sitting in chair, agrees to treatment. Pt reports 8/10 back and neck pain. Pt requests pain meds. RN notified and provided pain medication. Mental Status/Objective Functional [place] Measure 0=Not Assessed/NA 4=Minimal Assistance 1=Total Assistance 5=Supervision or Setup 2=Maximal Assistance 6=Modified [place] 3=Moderate Assistance 7=Complete [place] ADL-Treatment Functional [place] Measure 0=Not Assessed/NA 4=Minimal Assistance 1=Total Assistance 5=Supervision or Setup 2=Maximal Assistance 6=Modified [place] 3=Moderate Assistance 7=Complete IndependenceIRFPAI Quality Coding Scale 6 Independent with activity with or without an assistive device 5 Patient requires set up or clean up by helper. Patient completes activity by themselves 4 Supervision or touching assist (CGA). [place] provide cues , steadying assist 3 The helper provides less than half the effort to complete the activity 2 The helper provides more than half the effort to complete the activity 1 Dependent. The helper does all the effort to complete an activity 7 Patient refused to complete or attempt activity 9 The patient did not perform the activity before the current illness or injury 88 Not attempted due to Medical conditions or safety concerns Other Treatment Pt finishing lunch when therapist arrives. Sit to stand with supervision. Gait to therapy gym with FWW, slow pace. Pt completed tabletop resistance peg activity to increase coordination skills. Increased time required for task. Pt completed fine motor task with nuts and bolts to increase coordination/ manipulation. Pt takes increased time for task, but does not require any assistance. Occasional rest breaks taken during session secondary to pain and fatigue. Pt returned to room, sitting EOB with needs met after session. OT Short Term Goals Short Term Goals Time Frame: Apr 27, 2017 Grooming(FIM): 5 Bathing(FIM): 4 Upper Body Dressing(FIM): 4 Lower Body Dressing(FIM): 4 Toileting(FIM): 4 Transfers (B,C,W/C) (FIM): 5 Toilet/Commode Transfer(FIM): 5 Additional Short Term Goals: 1-Demonstrate ADL Tasks, 2-Verbalize Understanding , 3-ImproveStrength/Amber 1=Demonstrate adherence to instructed precautions during ADL tasks. 2=Patient will verbalize/demonstrate understanding of assistive devices/ modifications for ADL. 3=Patient will improve strength/tolerance for activity to enable patient to perform ADL's. OT Telecommunications Switch Technician Goals Telecommunications Switch Technician Goals Time Frame: May 11, 2017 Eating (FIM): 6 Eating (QC): 6 Groomin Oral Hygiene (QC): 6 Bathing(FIM): 5 Shower/Bathe Self (QC): 5 Upper Body Dressing(FIM): 6 Upper Body Dressing (QC): 6 Lower Body Dressing(FIM): 5 Lower Body Dressing (QC): 5 On/Off Footwear (QC): 5 Toileting(FIM): 6 Toileting Hygiene (QC): 6 Toilet/Commode Transfer(FIM): 6 Toilet/Commode Transfer (QC): 6 Shower Transfer(FIM): 5 Additional Goals: 2-Verbalize Understanding, 3-ImproveStrength/Amber 1=Demonstrate adherence to instructed precautions during ADL tasks. 2=Patient will verbalize/demonstrate understanding of assistive devices/ modifications for ADL. 3=Patient will improve strength/tolerance for activity to enable patient to perform ADL's. OT Education/Plan Discharge Recommendations Plan/Recommendations: Continue POC Treatment Plan/Plan of Care Patient would benefit from OT for education, treatment and training to promote independence in ADL's, mobility, safety and/or upper extremity function for ADL' s. Plan of Care: ADL Retraining, Functional Mobility, Group Exercise/Act as Ind, UE Funct Exercise/Act Treatment Duration: May 11, 2017 Frequency: At least 5 of 7 days/Wk (IRF) Estimated Hrs Per Day: 1.5 hours per day Agreement: Yes Rehab Potential: Fair Time/GCodes Start Time: 13:30 Stop Time: 14:00 Total Time Billed (hr/min): 30 Billed Treatment Time 1 visit, FAx2(30minutes) MELISA BRUNNER OT Apr 21, 2017 14:09
--- NOTE | 2017-04-21 14:31 | Physical Therapy Daily Note ---
PT Daily Note-Current Subjective Nursing reports that pt. is not ringing marcos and gets up without assist and has had to be reminded to call for assist. Pt. again keeping eyes closed and states he still has pain and discomfort in head and neck and shoulders. Also states he really hopes to have a good nights sleep tonight but is afraid he will fall asleep and never wake so hesitates to go to sleep. Pain Numeric Pain Scale: 5-Moderate Pain Location: Posterior Location Body Site: Neck Pain Description: Throbbing Mental Status Patient Orientation: Mumbles slow to respond, low voice Transfers Functional [place] Measure 0=Not Assessed/NA 4=Minimal Assistance 1=Total Assistance 5=Supervision or Setup 2=Maximal Assistance 6=Modified [place] 3=Moderate Assistance 7=Complete IndependenceIRFPAI Quality Coding Scale 6 Independent with activity with or without an assistive device 5 Patient requires set up or clean up by helper. Patient completes activity by themselves 4 Supervision or touching assist (CGA). [place] provide cues , steadying assist 3 The helper provides less than half the effort to complete the activity 2 The helper provides more than half the effort to complete the activity 1 Dependent. The helper does all the effort to complete an activity 7 Patient refused to complete or attempt activity 9 The patient did not perform the activity before the current illness or injury 88 Not attempted due to Medical conditions or safety concerns Transfers (B, C, W/C) (FIM): 6 Scootin Rollin Supine to/from Sit: 6 Sit to/from Stand: 6 bed and chair all mod I to SBA Gait Training Gait Assistive Device: FWW 250 ft x 3 SBA to CGA, pt. slow and knees melt a couple times , asymmetrical gait Stair Training Stair Training: Handrails/: 2 handrails Stairs (FIM): 4 #of Steps: 12 Stairs: Pattern: Reciprocal Level of Assist: 4 knees flex and melt a little, CGA needed Exercises Seated Therapy Exercises: Ankle pumps, Sit to stand, Long arc quads Seated Reps: 12 Assessment Current Status: Good Progress pt. continues c/o pain and headache and discomfort as well as inability to sleep and fear of not waking PT Short Term Goals Short Term Goals Time Frame: Apr 27, 2017 Transfers (B,C,W/C) (FIM): 5 Gait (FIM): 5 Gait Distance Comment: 300' Gait Level of Assist: 5 Gait Assistive Device: FWW PT Senior Care Goals Senior Care Goals PT Ethylbenzene Cracking Supervisor Goals Time Frame: May 11, 2017 Transfers (B,C,W/C) (FIM): 6 Sit to Lying (QC): 6 Lying-Sitting on Side/Bed(QC): 6 Sit to Stand (QC): 6 Rollin Roll Left to Right (QC): 6 Car Transfer (QC): 6 Gait (FIM): 6 Distance: 400' Walk 10 feet (QC): 6 Walk 10ft-Uneven Surface(QC): 6 Walk 50ft with 2 Turns (QC): 6 Walk 150 ft (QC): 6 Gait Assistive Device: FWW Stairs (FIM): 5 # of Steps: 12 1 Step (curb) (QC): 4 4 Steps (QC): 4 12 Steps (QC): 4 Stairs Level Of Assist: 5 PT Plan Treatment/Plan Treatment Plan: Continue Plan of Care Treatment Plan: Bed Mobility, Education, Functional Activity Amber, Functional Strength, Group Therapy, Gait, Safety, Therapeutic Exercise, Transfers Treatment Duration: May 11, 2017 Frequency: At least 5 of 7 days/Wk (IRF) Estimated Hrs Per Day: 1.5 hours per day Patient and/or Family Agrees t: Yes Safety Risks/Education Patient Education: Gait Training, Transfer Techniques, Steps, Correct Positioning, Disease Process, Safety Issues Teaching Recipient: Patient Teaching Methods: Demonstration, Discussion Response to Teaching: Verbalize Understanding, Reinforcement Needed Time/GCodes Time In: 1400 Time Out: 1430 Total Billed Treatment Time: 30 Total Billed Treatment 1,FA10m,GT20m G Codes Necessary: TRIXIE Ervin DRYING MACHINE BACK TENDER Apr 21, 2017 14:31
[2017-04-21 17:52] VITALS: BP 109/60
[2017-04-21] MEDS ORDERED: MELATONIN 3 MG TABLET PO SCH (21:00)
[2017-04-22] MEDS: oxyCODONE/APAP 7.5-325 MG (PERCOCET 7.5) TABLET PO PRN ×4 (02:17→14:23)
[2017-04-22 05:34] VITALS: BP 111/75
[2017-04-22] MEDS: BACLOFEN 10 MG (LIORESAL) TAB PO PRN ×3 (05:37→16:28)
[2017-04-22 06:10] LABS: MEAN PLATELET VOLUME 8.3 FL (7.4-10.4); RED BLOOD COUNT 3.62 10^6/uL (4.35-5.85); RED CELL DISTRIBUTION WIDTH 13.3 % (10.0-14.5); WHITE BLOOD COUNT 9.9 10^3/uL (4.3-11.0)
[2017-04-22 06:33] LABS: ALANINE AMINOTRANSFERASE 78 U/L (0-55); ALBUMIN 3.9 GM/DL (3.2-4.5); ANION GAP 11 MMOL/L (5-14); ASPARTATE AMINO TRANSFERASE 35 U/L (5-34); BILIRUBIN,TOTAL 0.3 MG/DL (0.1-1.0); BLOOD UREA NITROGEN 13 MG/DL (7-18); BUN/CREATININE RATIO 17; CALCIUM 9.8 MG/DL (8.5-10.1); CARBON DIOXIDE 23 MMOL/L (21-32); CHLORIDE 105 MMOL/L (98-107); CREATININE SERUM 0.78 MG/DL (0.60-1.30); GFR ESTIMATED > 60; GLUCOSE 101 MG/DL (70-105); POTASSIUM 4.1 MMOL/L (3.6-5.0); SODIUM 139 MMOL/L (135-145); TOTAL PROTEIN 7.3 GM/DL (6.4-8.2)
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
--- NOTE | 2017-04-22 08:58 | Physical Therapy Daily Note ---
PT Daily Note-Current Subjective Patient up walking getting coffee pre tx, agrees to PT, has pain of 9/10 in neck and back, states he has already had pain meds. Appearance Patient in recliner post tx with nurse call, phone, tray, all needs met. Performed a Tinetti with patient and he scored a 24/28, he will now be independent in his room using a single point cane Mental Status Patient Orientation: Normal For Age cervical collar Transfers Functional [place] Measure 0=Not Assessed/NA 4=Minimal Assistance 1=Total Assistance 5=Supervision or Setup 2=Maximal Assistance 6=Modified [place] 3=Moderate Assistance 7=Complete IndependenceIRFPAI Quality Coding Scale 6 Independent with activity with or without an assistive device 5 Patient requires set up or clean up by helper. Patient completes activity by themselves 4 Supervision or touching assist (CGA). [place] provide cues , steadying assist 3 The helper provides less than half the effort to complete the activity 2 The helper provides more than half the effort to complete the activity 1 Dependent. The helper does all the effort to complete an activity 7 Patient refused to complete or attempt activity 9 The patient did not perform the activity before the current illness or injury 88 Not attempted due to Medical conditions or safety concerns Transfers (B, C, W/C) (FIM): 6 Sit to/from Stand: 6 occasional cues for hand placement Gait Training Gait (FIM): 6 Distance: 200'x3 Gait Assistive Device: Cane Single Point slow, antalgic Exercises LAQ alternating for 5 min with 2# ankle weights NuStep Minutes: 15 NuStep Workload: 6 Treatments transfers, ambulation, functional strengthening, balance testing Assessment Current Status: Fair Progress improving balance PT Short Term Goals Short Term Goals Time Frame: Apr 27, 2017 Transfers (B,C,W/C) (FIM): 5 Gait (FIM): 5 Gait Distance Comment: 300' Gait Level of Assist: 5 Gait Assistive Device: FWW PT Senior Living Goals Coffee Shop Manager Goals PT Coffee Shop Manager Goals Time Frame: May 11, 2017 Transfers (B,C,W/C) (FIM): 6 Sit to Lying (QC): 6 Lying-Sitting on Side/Bed(QC): 6 Sit to Stand (QC): 6 Rollin Roll Left to Right (QC): 6 Car Transfer (QC): 6 Gait (FIM): 6 Distance: 400' Walk 10 feet (QC): 6 Walk 10ft-Uneven Surface(QC): 6 Walk 50ft with 2 Turns (QC): 6 Walk 150 ft (QC): 6 Gait Assistive Device: FWW Stairs (FIM): 5 # of Steps: 12 1 Step (curb) (QC): 4 4 Steps (QC): 4 12 Steps (QC): 4 Stairs Level Of Assist: 5 PT Plan Problem List Problem List: Activity Tolerance, Functional Strength, Safety, Balance, Gait, Transfer Treatment/Plan Treatment Plan: Continue Plan of Care Treatment Plan: Bed Mobility, Education, Functional Activity Amber, Functional Strength, Group Therapy, Gait, Safety, Therapeutic Exercise, Transfers Treatment Duration: May 11, 2017 Frequency: At least 5 of 7 days/Wk (IRF) Estimated Hrs Per Day: 1.5 hours per day Patient and/or Family Agrees t: Yes Safety Risks/Education Patient Education: Gait Training, Transfer Techniques, Reviewed Precautions, Correct Positioning, Safety Issues Teaching Recipient: Patient Teaching Methods: Demonstration, Discussion Response to Teaching: Reinforcement Needed Time/GCodes Time In: 759 Time Out: 859 Total Billed Treatment Time: 60 Total Billed Treatment 1 visit EX 20' GT 30' NM 10' HIRO PASTRANA PT Apr 22, 2017 08:58
[2017-04-22 09:14] VITALS: BP 114/71
[2017-04-22] MEDS: SENNA W/DOCUSATE (SENOKOT S) TABLET PO SCH (09:16)
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
[2017-04-22] MEDS: BACITRACIN OINTMENT 28 GM TUBE TOP SCH (09:21)
--- NOTE | 2017-04-22 12:35 | Occupational Ther Daily Note ---
OT Current Status-Daily Note Subjective Pt alert, sitting in w/c. Pt agreed to therapy. No c/o pain at this time. Mental Status/Objective Patient Orientation: Person, Place, Time, Situation Functional [place] Measure 0=Not Assessed/NA 4=Minimal Assistance 1=Total Assistance 5=Supervision or Setup 2=Maximal Assistance 6=Modified [place] 3=Moderate Assistance 7=Complete [place] neck brace ADL-Treatment Functional [place] Measure 0=Not Assessed/NA 4=Minimal Assistance 1=Total Assistance 5=Supervision or Setup 2=Maximal Assistance 6=Modified [place] 3=Moderate Assistance 7=Complete IndependenceIRFPAI Quality Coding Scale 6 Independent with activity with or without an assistive device 5 Patient requires set up or clean up by helper. Patient completes activity by themselves 4 Supervision or touching assist (CGA). [place] provide cues , steadying assist 3 The helper provides less than half the effort to complete the activity 2 The helper provides more than half the effort to complete the activity 1 Dependent. The helper does all the effort to complete an activity 7 Patient refused to complete or attempt activity 9 The patient did not perform the activity before the current illness or injury 88 Not attempted due to Medical conditions or safety concerns Grooming (FIM): 6 (Pt able to complete grooming by self.) Oral Hygiene (QC): 6 Bathing (FIM): 5 (Using shower bench, neck brace, grabbar and hand held shower pt able to complete bathing with supervision.) Bathing Location: L Arm, R Arm, L Upper Leg, R Upper Leg, L Lower Leg ( including foot), R Lower Leg (including foot), Chest, Abdomen, Buttocks, Perineal Area Shower/Bathe Self (QC): 4 Upper Body (FIM): 4 (Pt retrieved clothing at w/c level. Pt required min A to don/doff shirt over head to keep neck in correct alignment.) Upper Body Dressing (QC): 3 Lower Body Dressing (FIM): 5 (Retrieving clothing at w/c level. Pt able to complete lower body dressing with supervision when standing to hike over hips.) Lower Body Dressing (QC): 4 On/Off Footwear (QC): 6 Transfers (B, C, W/C) (FIM): 5 (Supervision) Shower Transfer(FIM): 5 (Using w/c, grabbar and shower bench pt able to complete with supervision.) OT Short Term Goals Short Term Goals Time Frame: Apr 27, 2017 Grooming(FIM): 5 Bathing(FIM): 4 Upper Body Dressing(FIM): 4 Lower Body Dressing(FIM): 4 Toileting(FIM): 4 Transfers (B,C,W/C) (FIM): 5 Toilet/Commode Transfer(FIM): 5 Additional Short Term Goals: 1-Demonstrate ADL Tasks, 2-Verbalize Understanding , 3-ImproveStrength/Amber 1=Demonstrate adherence to instructed precautions during ADL tasks. 2=Patient will verbalize/demonstrate understanding of assistive devices/ modifications for ADL. 3=Patient will improve strength/tolerance for activity to enable patient to perform ADL's. OT [facility] Goals Nursing Program Coordinator Goals Time Frame: May 11, 2017 Eating (FIM): 6 Eating (QC): 6 Groomin Oral Hygiene (QC): 6 Bathing(FIM): 5 Shower/Bathe Self (QC): 5 Upper Body Dressing(FIM): 6 Upper Body Dressing (QC): 6 Lower Body Dressing(FIM): 5 Lower Body Dressing (QC): 5 On/Off Footwear (QC): 5 Toileting(FIM): 6 Toileting Hygiene (QC): 6 Toilet/Commode Transfer(FIM): 6 Toilet/Commode Transfer (QC): 6 Shower Transfer(FIM): 5 Additional Goals: 2-Verbalize Understanding, 3-ImproveStrength/Amber 1=Demonstrate adherence to instructed precautions during ADL tasks. 2=Patient will verbalize/demonstrate understanding of assistive devices/ modifications for ADL. 3=Patient will improve strength/tolerance for activity to enable patient to perform ADL's. OT Education/Plan Discharge Recommendations Plan/Recommendations: Continue POC Treatment Plan/Plan of Care Patient would benefit from OT for education, treatment and training to promote independence in ADL's, mobility, safety and/or upper extremity function for ADL' s. Plan of Care: ADL Retraining, Functional Mobility, Group Exercise/Act as Ind, UE Funct Exercise/Act Treatment Duration: May 11, 2017 Frequency: At least 5 of 7 days/Wk (IRF) Estimated Hrs Per Day: 1.5 hours per day Agreement: Yes Rehab Potential: Fair Time/GCodes Start Time: 11:00 Stop Time: 12:00 Total Time Billed (hr/min): 60 Billed Treatment Time 1 visit-ADL 4 (60 min) LISA HAUSER Apr 22, 2017 12:35
[2017-04-22] MEDS ORDERED: BACL10TA PO (13:39)
[2017-04-22] MEDS ORDERED: MAGN400O7 PO (13:39)
[2017-04-22] MEDS ORDERED: OXYC-464 PO (13:39)
[2017-04-22] MEDS ORDERED: BACI28.4 TOP (13:39)
[2017-04-22] MEDS ORDERED: MELA3TAB PO (13:39)
[2017-04-22] MEDS ORDERED: FENT1PAT9 TD (13:39)
[2017-04-22] MEDS ORDERED: SENN-20 PO (13:39)
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
--- NOTE | 2017-04-22 14:28 | Therapy Group Daily Note ---
Therapy Daily Group Note Patient Education Topic Home Safety, Fall Prevention, Exercises Exercises LE Seated Exercise, UE Exercise Other/Notes Pt ambulated to PT/OT Group using FWW at close SBA. Pt ambulated 12 stairs using 2 handrails at close SBA. Pt then ambulated across varying surface of at least 10' using SPC at close SBA. Pt did not attempt to pick remover object due to his precautions. Pt participated in group including introduction (name, where they're from, worst fall), seated UE and LE EX, explanation of ARU and expectations, as well as weekly ARU meeting. Brain teasers, home safety, fall prevention. Pt actively participated in both EX and verbal descriptions of fall hazards within the house. Pt returned to room at end of tx with all needs met. Start Time: 13:00 Stop Time: 14:00 Total Billed Treatment Time: 60 Total Billed Treatment 1, GRP (60m) SHENG THOMPSON WELDER PLASTIC Apr 22, 2017 14:28
[2017-04-22 16:40] VITALS: BP 114/71
[2017-04-23] MEDS ORDERED: PATCH REMOVAL TP SCH (07:00)
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
--- NOTE | 2017-04-23 11:41 | Therapy Team Discharge Summary ---
Therapy Discharge Summary Discharge Recommendations Date of Discharge Apr 22, 2017 at 16:40 Therapy D/C Recommendations: Home w/ Family Support Occupational Therapy Pt admitted to ARU following acute hospitalization for C7 fracture with incomplete quadriplegia. On admission pt required minimal assistance with transfers, dressing and CGA for grooming. Skilled OT intervention focused on ADL training, transfers, strengthening, and coordination. Pt made fair progress , but was limited by c/o pain. Pt only met goals for eating, bathing, LE dressing, and shower transfer. Did not meet other LTG. Pt discharged home and will be discharged from ARU OT at this time. Decreased Activ Tolerance, Decreased UE Strength, Dependent Transfers, Impaired Self-Care Skills PT Lead Atg Developer Goals Lead Atg Developer Goals PT Lead Atg Developer Goals Time Frame: May 11, 2017 Transfers (B,C,W/C) (FIM): 6 Roll Left to Right (QC): 6 Sit to Lying (QC): 6 Lying-Sitting on Side/Bed(QC): 6 Sit to Stand (QC): 6 Car Transfer (QC): 6 Gait (FIM): 6 Distance: 400' Walk 10 feet (QC): 6 Walk 10ft-Uneven Surface(QC): 6 Walk 50ft with 2 Turns (QC): 6 Walk 150 ft (QC): 6 Gait Assistive Device: FWW Stairs (FIM): 5 # of Steps: 12 1 Step (curb) (QC): 4 4 Steps (QC): 4 12 Steps (QC): 4 Stairs Level Of Assist: 5 OT Lead Atg Developer Goals Lead Atg Developer Goals Time Frame: May 11, 2017 Eating (FIM): 6 Eating (QC): 6 Oral Hygiene (QC): 6 Grooming(FIM): 6 Bathing(FIM): 5 Shower/Bathe Self (QC): 5 Upper Body Dressing(FIM): 6 Upper Body Dressing (QC): 6 Lower Body Dressing(FIM): 5 Lower Body Dressing (QC): 5 On/Off Footwear (QC): 5 Toileting(FIM): 6 Toileting Hygiene (QC): 6 Toilet/Commode Transfer(FIM): 6 Toilet/Commode Transfer (QC): 6 Shower Transfer(FIM): 5 Additional Goals: 2-Verbalize Understanding, 3-ImproveStrength/Amber 1=Demonstrate adherence to instructed precautions during ADL tasks. 2=Patient will verbalize/demonstrate understanding of assistive devices/ modifications for ADL. 3=Patient will improve strength/tolerance for activity to enable patient to perform ADL's. MELISA BRUNNER OT Apr 23, 2017 11:41
== END 2017-04-22 16:40 | disposition home or self-care (01) | DRG 949 ==
PROVIDERS: ADMIT Physical Medicine & Rehabilitation; ATTEND Physical Medicine & Rehabilitation
DX: S14.157 Other incomplete lesion at C7 level of cervical spinal cord (principal); G82.54 Quadriplegia, C5-C7 incomplete; S36.113D Laceration of liver, unspecified degree, subsequent encounter; S01.01XD Laceration without foreign body of scalp, subsequent encounter; V99.XXXD Unspecified transport accident, subsequent encounter; Z98.1 Arthrodesis status
CPT/HCPCS: 36415; 80053; 85027

== ENCOUNTER 2018-01-01 12:36 | Emergency (ER) | payer SELFPAY ==
[~2018-01-01] VITALS: Ht 177.8 cm; Wt 77.1 kg
[~2018-01-01 12:36] MED LIST: BACI28.4 TOP; BACL10TA PO; FENT1PAT9 TD; MAGN400O7 PO; MELA3TAB PO; OXYC-464 PO; SENN-20 PO
--- OUTSIDE RECORDS SUMMARY | 2018-01-01 12:42 | XMS REPORT ---
Author Author ARY BURNETT Organization [facility] Address [address] [place] [address] Care Team Providers Care Bean Roaster Name Role Phone ARY BURNETT Unavailable PROBLEMS Type Condition ICD9-CM Code ICJ19-MS Code Onset Dates Condition Status SNOMED Code Problem Uncomplicated alcohol dependence F10.20 Active 31831931 Problem Episode of recurrent major depressive disorder, unspecified depression episode severity F33.9 Active 480943323 Problem Alcohol abuse F10.10 Active 60769728 ALLERGIES No Information ENCOUNTERS Encounter Location Date Diagnosis [facility] [id number] [place] [address] 87137- 2478 Nov, [facility] [id number] [place] [address] 77100- 1234 October, [facility] [id number] [place] [address] 10256- 2130 October, [facility] [address] [place] [address] October, Uncomplicated alcohol dependence F10.20 [facility] [id number] [place] [address] 72518- 7374 October, [facility] [id number] [place] [address] 60470- 2710 October, [facility] [address] [place] [address] October, Uncomplicated alcohol dependence F10.20 [facility] [id number] [place] [address] 29051- 9107 October, [facility] [id number] [place] [address] 27555- 3633 October, [facility] [id number] [place] [address] 38910- 2811 October, [facility] [address] [place] [address] October, Uncomplicated alcohol dependence F10.20 [facility] [id number] [place] [address] 61579- 6802 October, [facility] [id number] [place] [address] 89424- 9554 October, [facility] [id number] [place] [address] 02130- 5357 October, [facility] [id number] [place] [address] 26608- 3495 October, [facility] [address] [place] [address] October, Uncomplicated alcohol dependence F10.20 [facility] [address] [place] [address] Sep, Uncomplicated alcohol dependence F10.20 [facility] [address] [place] [address] Sep, Uncomplicated alcohol dependence F10.20 [facility] [address] [place] [address] Sep, Uncomplicated alcohol dependence F10.20 [facility] [id number] [place] [address] 63205- 2595 Sep, [facility] [id number] [place] [address] 86383- 6443 Sep, [facility] [address] [place] [address] Sep, Uncomplicated alcohol dependence F10.20 [facility] [id number] [place] [address] 84008- 7701 Sep, [facility] [id number] [place] [address] 89718- 5404 Sep, [facility] [address] [place] [address] Sep, Uncomplicated alcohol dependence F10.20 [facility] [id number] [place] [address] 37136- 5312 Sep, [facility] [id number] [place] [address] 67928- 9454 Sep, [facility] [id number] [place] [address] 33097- 1384 Sep, [facility] [address] [place] [address] Sep, Uncomplicated alcohol dependence F10.20 [facility] [id number] [place] [address] 19172- 2680 Sep, [facility] [id number] [place] [address] 07346- 9412 30 Aug, 2017 [facility] [id number] [place] [address] 65383- 2615 29 Aug, 2017 [facility] [id number] [place] [address] 44681- 4078 27 Aug, 2017 [facility] [address] [place] [address] 27 Aug, 2017 Uncomplicated alcohol dependence F10.20 [facility] [id number] [place] [address] 50765- 9385 22 Aug, 2017 [facility] [id number] [place] [address] 12102- 9693 22 Aug, 2017 [facility] [id number] [place] [address] 38780- 0377 20 Aug, 2017 [facility] [id number] [place] [address] 47593- 0368 19 Aug, 2017 [facility] [address] [place] [address] 15 Aug, 2017 Uncomplicated alcohol dependence F10.20 [facility] [id number] [place] [address] 585574- 0511 15 Aug, 2017 [facility] [id number] [place] [address] 38933- 0164 15 Aug, 2017 Uncomplicated alcohol dependence F10.20 [facility] [address] [place] [address] Aug, Uncomplicated alcohol dependence F10.20 [facility] [id number] [place] [address] 38949- 1904 Aug, [facility] [address] [place] [address] Aug, Uncomplicated alcohol dependence F10.20 [facility] [id number] [place] [address] 80621- 5823 Aug, [facility] [address] [place] [address] Aug, Uncomplicated alcohol dependence F10.20 [facility] [address] 79[address]- 1967 Aug, [facility] [address] [place] [address] Aug, Uncomplicated alcohol dependence F10.20 [facility] [id number] [place] [address] 51668- 5383 Aug, [facility] [id number] [place] [address] 78515- 4541 Jul, [facility] [address] 22046- 3467 Jul, [facility] [address] [place] [address] Jul, Uncomplicated alcohol dependence F10.20 [facility] [id number] [place] [address] 49560- 9376 Jul, [facility] [id number] [place] [address] 30383- 1486 Jul, [facility] [address] [place] [address] Jul, Uncomplicated alcohol dependence F10.20 [facility] [id number] [place] [address] 19770- 9721 Jul, [facility] [address] [place] [address] Jul, Uncomplicated alcohol dependence F10.20 [facility] [id number] [place] [address] 41211- 7894 15 Jul, 2017 [facility] [address] [place] [address] 15 Jul, 2017 Uncomplicated alcohol dependence F10.20 [facility] [address] [place] [address] 12 Jul, 2017 Uncomplicated alcohol dependence F10.20 [facility] [address] 87883- 5804 08 Jul, 2017 [facility] [address] [place] [address] 08 Jul, 2017 Uncomplicated alcohol dependence F10.20 [facility] [address] [place] [address] 06 Jul, 2017 Uncomplicated alcohol dependence F10.20 [facility] [address] [place] [address] 05 Jul, 2017 Uncomplicated alcohol dependence F10.20 [facility] [address] [place] [address] Jun, Uncomplicated alcohol dependence F10.20 [facility] [address] [place] [address] May, Uncomplicated alcohol dependence F10.20 [facility] [address] 30484- 0616 May, [facility] [address] 43689- 9648 15 May, 2017 Routine check-up Z00.00 [facility] [address] 95397- 9585 14 May, 2017 [facility] [address] 00768- 1678 13 May, 2017 [facility] [address] 43287- 5411 29 Feb, 2017 [facility] [address] [place] [address] 29 Feb, 2017 Uncomplicated alcohol dependence F10.20 [facility] [address] [place] [address] 27 Feb, 2017 Uncomplicated alcohol dependence F10.20 [facility] [address] [address] 2546 21 Feb, 2016 [facility] [address] [place] [address] 21 Feb, 2016 Uncomplicated alcohol dependence F10.20 [facility] [address] [place] [address] 14 Feb, 2016 Uncomplicated alcohol dependence F10.20 [facility] [address] [place] [address] 12 Feb, 2016 Uncomplicated alcohol dependence F10.20 [facility] [address] [place] [address] 68989 2546 12 Feb, 2016 [facility] [address] [place] [address] 07 Feb, 2016 Uncomplicated alcohol dependence F10.20 [facility] [address] [place] [address] 94670 2546 07 Feb, 2016 [facility] [address] [place] [address] 05 Feb, 2016 Uncomplicated alcohol dependence F10.20 [facility] [address] [place] [address] 78118 2542 05 Feb, 2016 [facility] [address] [place] [address] 30 Jan, 2017 Uncomplicated alcohol dependence F10.20 [facility] [address] [place] [address] Jan, Uncomplicated alcohol dependence F10.20 [facility] [address] [place] [address] Dec, Alcohol abuse F10.10 and Uncomplicated alcohol dependence F10.20 [facility] [address] [place] [address] Dec, Alcohol abuse F10.10 [facility] [address] [place] [address] Dec, Alcohol abuse F10.10 [facility] [address] [place] [address] Dec, Alcohol abuse F10.10 [facility] [address] [place] [address] Nov, Alcohol abuse F10.10 [facility] [address] [address] Nov, [facility] [address] [place] [address] Nov, Alcohol abuse F10.10 [facility] [address] [place] [address] Nov, Alcohol abuse F10.10 [facility] [id number] [place] [address] 11563- 7301 Nov, [facility] [id number] [place] [address] 45897- 2378 Nov, [facility] [address] 30734- 5885 October, [facility] [address] [place] [address] October, Alcohol abuse F10.10 [facility] [id number] [place] [address] 21000- 5426 October, [facility] [id number] [place] [address] 67454- 1142 October, [facility] [id number] [place] [address] 96769- 0624 October, [facility] [address] [place] [address] October, Alcohol abuse F10.10 [facility] [address] [place] [address] October, Alcohol abuse F10.10 [facility] [id number] [place] [address] 80455- 2544 Sep, Alcohol abuse F10.10 [facility] [address] 34291- 2523 Sep, [facility] [address] [place] [address] Sep, Alcohol abuse F10.10 [facility] [address] [place] [address] 10428- 0606 Sep, [facility] [address] [place] [address] 04 Sep, 2016 Alcohol abuse F10.10 [facility] [id number] [place] [address] 39321- 2646 04 Sep, 2016 [facility] [id number] [place] [address] 78233 2546 Sep, [facility] [id number] [place] [address] 62523- 9660 30 Aug, 2016 [facility] [address] [place] [address] 28 Aug, 2016 Alcohol abuse F10.10 [facility] [id number] [place] [address] 94418- 4136 23 Aug, 2016 [facility] [address] [place] [address] 21 Aug, 2016 Alcohol abuse F10.10 [facility] [id number] [place] [address] 07535- 7367 16 Aug, 2016 [facility] [address] [place] [address] 14 Aug, 2016 Alcohol abuse F10.10 [facility] [id number] [place] [address] 07217 2541 09 Aug, 2016 [facility] [address] [place] [address] 07 Aug, 2016 Alcohol abuse F10.10 [facility] [id number] [place] [address] 64856- 0130 02 Aug, 2016 [facility] [address] [place] [address] 28 Jul, 2016 Alcohol abuse F10.10 [facility] [address] [place] [address] 24 Jul, 2016 Alcohol abuse F10.10 [facility] [id number] [place] [address] 69520- 2549 23 Jul, 2016 [facility] [address] [place] [address] 16 Jul, 2016 Alcohol abuse F10.10 [facility] [address] [place] [address] 07 Jul, 2016 Alcohol abuse F10.10 [facility] [address] [place] [address] Jun, Alcohol abuse F10.10 [facility] [address] [place] [address] 85902- 9711 Jun, [facility] [address] [place] [address] Jun, Alcohol abuse F10.10 [facility] [address] [place] [address] Jun, Alcohol abuse F10.10 [facility] [id number] [place] [address] 14584- 0611 May, Episode of recurrent major depressive disorder, unspecified depression episode severity F33.9 and Alcohol abuse F10.10 [facility] [address] [place] [address] May, Alcohol abuse F10.10 [facility] [id number] [place] [address] 95469- 0993 May, [facility] [id number] [place] [address] 22649- 9114 May, Episode of recurrent major depressive disorder, unspecified depression episode severity F33.9 and Alcohol abuse F10.10 [facility] [address] [place] [address] 30 Apr, 2016 Alcohol abuse F10.10 [facility] [address] [place] [address] 23 Apr, 2016 Alcohol abuse F10.10 [facility] [id number] [place] [address] 21519- 0226 17 Apr, 2016 Alcohol abuse F10.10 and Episode of recurrent major depressive disorder, unspecified depression episode severity F33.9 [facility] [id number] [place] [address] 58385- 4454 07 Apr, 2016 [facility] [id number] [place] [address] 31082- 8748 29 Feb, 2016 Depressive disorder, not elsewhere classified F32.9 and Uncomplicated alcohol dependence F10.20 IMMUNIZATIONS No Known Immunizations SOCIAL HISTORY Never Assessed REASON FOR VISIT TX Plan Update PLAN OF CARE Activity Details Follow Up 1 Week Reason: VITAL SIGNS MEDICATIONS Unknown Medications RESULTS No Results PROCEDURES Procedure Date Ordered Result Body Site Alcohol and/or drug services Jun 16, 2017 INSTRUCTIONS MEDICATIONS ADMINISTERED No Known Medications MEDICAL (GENERAL) HISTORY Type Description Date Medical History broken neck 2016, Medical History Alcoholism Surgical History 2 neck surgeris 2016 Surgical History tonsillectomy Surgical History tubes put in ears Hospitalization History [facility] 2016 Hospitalization History tonsilectomy
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
--- OUTSIDE RECORDS SUMMARY | 2018-01-01 12:43 | XMS REPORT ---
Author Author ARY BURNETT Organization [facility] Address [address] [place] [address] Care Team Providers Care Administrative Office Assistant Name Role Phone ARY BURNETT Unavailable PROBLEMS Type Condition ICD9-CM Code [id number] Code Onset Dates Condition Status SNOMED Code Problem Uncomplicated alcohol dependence F10.20 Active 12952204 Problem Episode of recurrent major depressive disorder, unspecified depression episode severity F33.9 Active 300610610 Problem Alcohol abuse F10.10 Active 80670076 ALLERGIES No Information ENCOUNTERS Encounter Location Date Diagnosis [facility] [id number] [place] [address] 34094- 3648 October, [facility] [id number] [place] [address] 30418- 8414 October, [facility] [address] [place] [address] October, Uncomplicated alcohol dependence F10.20 [facility] [id number] [place] [address] 53708- 4823 October, [facility] [id number] [place] [address] 03120- 4812 October, [facility] [address] [place] [address] October, Uncomplicated alcohol dependence F10.20 [facility] [id number] [place] [address] 18219- 7136 October, [facility] [id number] [place] [address] 80745- 2798 October, [facility] [id number] [place] [address] 56581- 9092 October, [facility] [address] [place] [address] October, Uncomplicated alcohol dependence F10.20 [facility] [address], [place] [address] October, [facility] [id number] [place] [address] 42737- 5309 October, [facility] [id number] [place] [address] 15712- 1136 October, [facility] [id number] [place] [address] 98968- 7305 October, [facility] [address] [place] [address] October, Uncomplicated alcohol dependence F10.20 [facility] [address] [place] [address] Sep, Uncomplicated alcohol dependence F10.20 [facility] [address] [place] [address] Sep, Uncomplicated alcohol dependence F10.20 [facility] [id number] [place] [address] 64409- 5889 Sep, [facility] [address] [place] [address] Sep, Uncomplicated alcohol dependence F10.20 [facility] [id number] [place] [address] 08288- 0415 Sep, [facility] [address] [place] [address] Sep, Uncomplicated alcohol dependence F10.20 [facility] [id number] [place] [address] 62389- 9505 Sep, [facility] [id number] [place] [address] 40886- 2235 Sep, [facility] [address] [place] [address] Sep, Uncomplicated alcohol dependence F10.20 [facility] [id number] [place] [address] 41408- 3895 Sep, [facility] [id number] [place] [address] 84324- 1847 Sep, [facility] [id number] [place] [address] 19718- 1597 Sep, [facility] [address] [place] [address] Sep, Uncomplicated alcohol dependence F10.20 [facility] [id number] [place] [address] 24359- 4096 Sep, [facility] [id number] [place] [address] 02697- 7901 30 Aug, 2017 [facility] [id number] [place] [address] 35217- 3740 29 Aug, 2017 [facility] [id number] [place] [address] 70487- 0385 27 Aug, 2017 [facility] [address] [place] [address] 27 Aug, 2017 Uncomplicated alcohol dependence F10.20 [facility] [id number] [place] [address] 91206- 2694 22 Aug, 2017 [facility] [id number] [place] [address] 25180- 8035 22 Aug, 2017 [facility] [id number] [place] [address] 25762- 2883 20 Aug, 2017 [facility] [id number] [place] [address] 14866- 4724 19 Aug, 2017 [facility] [address] [place] [address] 15 Aug, 2017 Uncomplicated alcohol dependence F10.20 [facility] [address] [address] 0547 15 Aug, 2017 [facility] [id number] [place] [address] 98020- 3285 15 Aug, 2017 Uncomplicated alcohol dependence F10.20 [facility] [address] [place] [address] 13 Aug, 2017 Uncomplicated alcohol dependence F10.20 [facility] [address] [place] [address] 3758 Aug, [facility] [address] [place] [address] Aug, Uncomplicated alcohol dependence F10.20 [facility] [id number] [place] [address] 07629 2546 Aug, [facility] [address] [place] [address] Aug, Uncomplicated alcohol dependence F10.20 [facility] [id number] [place] [address] 33120 2541 Aug, [facility] [address] [place] [address] Aug, Uncomplicated alcohol dependence F10.20 [facility] [id number] [place] [address] 83597- 0143 Aug, [facility] [id number] [place] [address] 99572- 5857 Jul, [facility] [id number] [place] [address] 77644- 6003 Jul, [facility] [address] [place] [address] Jul, Uncomplicated alcohol dependence F10.20 [facility] [id number] [place] [address] 90636- 1071 Jul, [facility] [id number] [place] [address] 17927- 1532 Jul, [facility] [address] [place] [address] Jul, Uncomplicated alcohol dependence F10.20 [facility] [id number] [place] [address] 76535- 5926 Jul, [facility] [address] [place] [address] Jul, Uncomplicated alcohol dependence F10.20 [facility] [id number] [place] [address] 65631- 8208 Jul, [facility] [address] [place] [address] 15 Jul, 2017 Uncomplicated alcohol dependence F10.20 [facility] [address] [place] [address] 12 Jul, 2017 Uncomplicated alcohol dependence F10.20 [facility] [id number] [place] [address] 04312- 8763 08 Jul, 2017 [facility] [address] [place] [address] 08 Jul, 2017 Uncomplicated alcohol dependence F10.20 [facility] [address] [place] [address] 06 Jul, 2017 Uncomplicated alcohol dependence F10.20 [facility] [address] [place] [address] 05 Jul, 2017 Uncomplicated alcohol dependence F10.20 [facility] [address] [place] [address] Jun, Uncomplicated alcohol dependence F10.20 [facility] [address] [place] [address] May, Uncomplicated alcohol dependence F10.20 [facility] [id number] [place] [address] 90372- 2520 May, [facility] [address] 30723- 9850 May, Routine check-up Z00.00 [facility] [address] 88535- 5770 14 May, 2017 [facility] [address] 46362- 3630 13 May, 2017 [facility] [id number] [place] [address] 16020- 4191 29 Feb, 2017 [facility] [address] [place] [address] 29 Feb, 2017 Uncomplicated alcohol dependence F10.20 [facility] [address] [place] [address] 27 Feb, 2016 Uncomplicated alcohol dependence F10.20 [facility] [address] 59683- 2545 21 Sep, 2016 [facility] [address] [place] [address] 21 Feb, 2016 Uncomplicated alcohol dependence F10.20 [facility] [address] [place] [address] 14 Feb, 2016 Uncomplicated alcohol dependence F10.20 [facility] [address] [place] [address] 12 Feb, 2016 Uncomplicated alcohol dependence F10.20 [facility] [id number] [place] [address] 32126- 6913 12 Feb, 2016 [facility] [address] [place] [address] 07 Feb, 2016 Uncomplicated alcohol dependence F10.20 [facility] [address] 39319- 0582 07 Feb, 2016 [facility] [address] [place] [address] 05 Feb, 2016 Uncomplicated alcohol dependence F10.20 [facility] [address] 72613- 1540 05 Feb, 2016 [facility] [address] [place] [address] 30 Jan, 2017 Uncomplicated alcohol dependence F10.20 [facility] [address] [place] [address] Jan, Uncomplicated alcohol dependence F10.20 [facility] [address] [place] [address] Dec, Alcohol abuse F10.10 and Uncomplicated alcohol dependence F10.20 [facility] [address] [place] [address] Dec, Alcohol abuse F10.10 [facility] [address] [place] [address] 18 Dec, 2016 Alcohol abuse F10.10 [facility] [address] [place] [address] Dec, Alcohol abuse F10.10 [facility] [address] [place] [address] Nov, Alcohol abuse F10.10 [facility] [id number] [place] [address] 37741- 5272 Nov, [facility] [address] [place] [address] Nov, Alcohol abuse F10.10 [facility] [address] [place] [address] Nov, Alcohol abuse F10.10 [facility] [address], [place] [address] 7802 Nov, [facility] [id number] [place] [address] 20073- 9196 Nov, [facility] [id number] [place] [address] 57796- 3428 October, [facility] [address] [place] [address] October, Alcohol abuse F10.10 [facility] [id number] [place] [address] 85919- 2192 October, [facility] [id number] [place] [address] 21019- 0378 October, [facility] [id number] [place] [address] 87950- 7470 October, [facility] [address] [place] [address] October, Alcohol abuse F10.10 [facility] [address] [place] [address] October, Alcohol abuse F10.10 [facility] [id number] [place] [address] 06741- 8113 Sep, Alcohol abuse F10.10 [facility] [id number] [place] [address] 84089- 6122 Sep, [facility] [address] [place] [address] Sep, Alcohol abuse F10.10 [facility] [id number] [place] [address] 93296- 8333 Sep, [facility] [address] [place] [address] Sep, Alcohol abuse F10.10 [facility] [address], [place] [address]- 3493 04 Sep, 2016 [facility] [id number] [place] [address] 18663- 0046 03 Sep, 2016 [facility] [id number] [place] [address] 19316- 9895 30 Aug, 2016 [facility] [address] [place] [address] 28 Aug, 2016 Alcohol abuse F10.10 [facility] [id number] [place] [address] 15760- 5920 23 Aug, 2016 [facility] [address] [place] [address] 21 Aug, 2016 Alcohol abuse F10.10 [facility] [id number] [place] [address] 12652- 3767 16 Aug, 2016 [facility] [address] [place] [address] 14 Aug, 2016 Alcohol abuse F10.10 [facility] [id number] [place] [address] 68728- 9777 09 Aug, 2016 [facility] [address] [place] [address] 07 Aug, 2016 Alcohol abuse F10.10 [facility] [id number] [place] [address] 07538- 8703 Aug, [facility] [address] [place] [address] 28 Jul, 2016 Alcohol abuse F10.10 [facility] [address] [place] [address] 24 Jul, 2016 Alcohol abuse F10.10 [facility] [address] [place] [address] 03977- 6224 23 Jul, 2016 [facility] [address] [place] [address] 16 Jul, 2016 Alcohol abuse F10.10 [facility] [address] [place] [address] 07 Jul, 2016 Alcohol abuse F10.10 [facility] [address] [place] [address] Jun, Alcohol abuse F10.10 [facility] [id number] [place] [address] 31982- 6654 Jun, [facility] [address] [place] [address] Jun, Alcohol abuse F10.10 [facility] [address] [place] [address] Jun, Alcohol abuse F10.10 [facility] [address] 01674- 1612 May, Episode of recurrent major depressive disorder, unspecified depression episode severity F33.9 and Alcohol abuse F10.10 [facility] [address] [place] [address] May, Alcohol abuse F10.10 [facility] [address] 79324- 8446 May, [facility] [address] 59517- 1802 May, Episode of recurrent major depressive disorder, unspecified depression episode severity F33.9 and Alcohol abuse F10.10 [facility] [address] [place] [address] Apr, Alcohol abuse F10.10 [facility] [address] [place] [address] Apr, Alcohol abuse F10.10 [facility] [id number] [place] [address] 93106- 7372 Apr, Alcohol abuse F10.10 and Episode of recurrent major depressive disorder, unspecified depression episode severity F33.9 [facility] [id number] [place] [address] 86132- 3069 Apr, [facility] [address] 94881- 1444 Feb, Depressive disorder, not elsewhere classified F32.9 and Uncomplicated alcohol dependence F10.20 IMMUNIZATIONS No Known Immunizations SOCIAL HISTORY Never Assessed REASON FOR VISIT SUBAB F/U PLAN OF CARE Activity Details Follow Up 1 Week Reason: VITAL SIGNS MEDICATIONS Unknown Medications RESULTS No Results PROCEDURES Procedure Date Ordered Result Body Site Alcohol and/or drug services May 25, 2017 INSTRUCTIONS MEDICATIONS ADMINISTERED No Known Medications MEDICAL (GENERAL) HISTORY Type Description Date Medical History broken neck Medical History Alcoholism Surgical History 2 neck surgeris 2016 Surgical History tonsillectomy Surgical History tubes put in ears Hospitalization History 2016 Hospitalization History tonsilectomy
--- OUTSIDE RECORDS SUMMARY | 2018-01-01 12:43 | XMS REPORT ---
Author Author ARY BURNETT Organization [facility] Address [address] [place] [address] Care Team Providers Care Car Distributor Name Role Phone ARY BURNETT Unavailable PROBLEMS Type Condition ICD9-CM Code VAX19-EO Code Onset Dates Condition Status SNOMED Code Problem Uncomplicated alcohol dependence F10.20 Active 84426608 Problem Episode of recurrent major depressive disorder, unspecified depression episode severity F33.9 Active 706170557 Problem Alcohol abuse F10.10 Active 58549250 ALLERGIES No Information ENCOUNTERS Encounter Location Date Diagnosis [facility] [address] [place] [address] Sep, Uncomplicated alcohol dependence F10.20 [facility] [address] [place] [address] Sep, Uncomplicated alcohol dependence F10.20 [facility] [id number] [place] [address]75[address] 8503 Sep, [facility] [address] [place] [address] Sep, Uncomplicated alcohol dependence F10.20 [facility] [id number] [place] [address] 89040- 6232 Sep, [facility] [address] [place] [address] Sep, Uncomplicated alcohol dependence F10.20 [facility] [id number] [place] [address] 05718- 6291 Sep, [facility] [address] [address] Sep, [facility] [address] [place] [address] Sep, Uncomplicated alcohol dependence F10.20 [facility] [address] [address] Sep, [facility] [address] [address] Sep, [facility] [id number] [place] [address] 07400- 2951 Sep, [facility] [address] [place] [address] Sep, Uncomplicated alcohol dependence F10.20 [facility] [id number] [place] [address] 38681[address] 7729 Sep, [facility] [id number] [place] [address] 64315- 5859 30 Aug, 2017 [facility] [id number] [place] [address] 98139- 2802 29 Aug, 2017 [facility] [id number] [place] [address] 81676- 5005 Aug, [facility] [address] [place] [address] 27 Aug, 2017 Uncomplicated alcohol dependence F10.20 [facility] [id number] [place] [address] 03381- 9291 Aug, [facility] [id number] [place] [address]84- 9852 Aug, [facility] [id number] [place] [address]- 8220 Aug, [facility] [id number] [place] [address] 98116- 8926 19 Aug, 2017 [facility] [address] [place] [address] 15 Aug, 2017 Uncomplicated alcohol dependence F10.20 [facility] [id number] [place] [address] 30335- 8327 15 Aug, 2017 [facility] [id number] [place] [address] 48816- 0368 15 Aug, 2017 Uncomplicated alcohol dependence F10.[address] [facility] [address] [place] [address] Aug, Uncomplicated alcohol dependence F10.20 [facility] [id number] [place] [address] 00240- 0968 Aug, [facility] [address] [place] [address] Aug, Uncomplicated alcohol dependence F10.20 [facility] [id number] [place] [address] 83816- 5935 Aug, [facility] [address] [place] [address] Aug, Uncomplicated alcohol dependence F10.20 [facility] [id number] [place] [address] 35223- 7380 Aug, [facility] [address] [place] [address] Aug, Uncomplicated alcohol dependence F10.20 [facility] [id number] [place] [address] 13237- 1010 Aug, [facility] [address] 03912[address] 6021 Jul, [facility] [address] 11733- 4425 Jul, [facility] [address] [place] [address] Jul, Uncomplicated alcohol dependence F10.20 [facility] [id number] [place] [address] 47808- 5849 Jul, [facility] [id number] [place] [address] 19370- 5073 Jul, [facility] [address] [place] [address] Jul, Uncomplicated alcohol dependence F10.20 [facility] [id number] [place] [address] 38042- 6227 Jul, [facility] [address] [place] [address] Jul, Uncomplicated alcohol dependence F10.20 [facility] [id number] [place] [address] 38421- 2699 15 Jul, 2017 [facility] [address] [place] [address] 15 Jul, 2017 Uncomplicated alcohol dependence F10.20 [facility] [address] [place] [address] 12 Jul, 2017 Uncomplicated alcohol dependence F10.20 [facility] [address] 08428- 0549 08 Jul, 2017 [facility] [address] [place] [address] 08 Jul, 2017 Uncomplicated alcohol dependence F10.20 [facility] [address] [place] [address] 06 Jul, 2017 Uncomplicated alcohol dependence F10.20 [facility] [address] [place] [address] 05 Jul, 2017 Uncomplicated alcohol dependence F10.20 [facility] [address] [place] [address] Jun, Uncomplicated alcohol dependence F10.20 [facility] [address] [place] [address] May, Uncomplicated alcohol dependence F10.20 [facility] [address] [address]24- [address]9 May, [facility] [id number] [place] [address] 59950- 0964 May, Routine check-up Z00.00 [facility] [address] 88469- 5982 14 May, 2017 [facility] [id number] [place] [address] 14029- 1710 13 May, 2017 [facility] [address] 43287- 5897 29 Feb, 2017 [facility] [address] [place] [address] 29 Feb, 2017 Uncomplicated alcohol dependence F10.20 [facility] [address] [place] [address] 27 Feb, 2017 Uncomplicated alcohol dependence F10.20 [facility] [address], [place] [address] 21 Feb, 2016 [facility] [address] [place] [address] 21 Feb, 2016 Uncomplicated alcohol dependence F10.20 [facility] [address] [place] [address] 14 Feb, 2016 Uncomplicated alcohol dependence F10.20 [facility] [address] [place] [address] 12 Feb, 2016 Uncomplicated alcohol dependence F10.[address] [facility] [id number] [place] [address] 17731 2547 12 Feb, 2016 [facility] [address] [place] [address] 07 Feb, 2016 Uncomplicated alcohol dependence F10.20 [facility] [address] [place] [address] 47713- 6642 07 Feb, 2016 [facility] [address] [place] [address] 05 Feb, 2016 Uncomplicated alcohol dependence F10.[address] [facility] [id number] [place] [address] 10723 2549 05 Feb, 2016 [facility] [address] [place] [address] 30 Jan, 2017 Uncomplicated alcohol dependence F10.20 [facility] [address] [place] [address] Jan, Uncomplicated alcohol dependence F10.20 [facility] [address] [place] [address] Dec, Alcohol abuse F10.10 and Uncomplicated alcohol dependence F10.20 [facility] [address] [place] [address] Dec, Alcohol abuse F10.10 [facility] [address] [place] [address] 18 Dec, 2016 Alcohol abuse F10.10 [facility] [address] [place] [address] Dec, Alcohol abuse F10.10 [facility] [address] [place] [address] Nov, Alcohol abuse F10.10 [facility] [address], [place] [address] Nov, [facility] [address] [place] [address] Nov, Alcohol abuse F10.10 [facility] [address] [place] [address] Nov, Alcohol abuse F10.10 [facility] [id number] [place] [address] 64169- 1912 Nov, [facility] [id number] [place] [address] 48257- 1777 Nov, [facility] [id number] [place] [address] 49537- 4612 October, [facility] [address] [place] [address] October, Alcohol abuse F10.10 [facility] [id number] [place] [address] 37251- 4929 October, [facility] [id number] [place] [address] 72664- 3447 October, [facility] [id number] [place] [address] 52141- 7249 October, [facility] [address] [place] [address] October, Alcohol abuse F10.10 [facility] [address] [place] [address] October, Alcohol abuse F10.10 [facility] [id number] [place] [address] 75207- 7539 Sep, Alcohol abuse F10.10 [facility] [id number] [place] [address] 84003- 4551 Sep, [facility] [address] [place] [address] Sep, Alcohol abuse F10.10 [facility] [address] [place] [address] 93743- 8777 Sep, [facility] [address] [place] [address] 04 Sep, 2016 Alcohol abuse F10.10 [facility] [id number] [place] [address] 43868- 5440 Sep, [facility] [id number] [place] [address] 48055- 9769 Sep, [facility] [id number] [place] [address] 57518- 5967 30 Aug, 2016 [facility] [address] [place] [address] 28 Aug, 2016 Alcohol abuse F10.10 [facility] [address] 76296- 0167 Aug, [facility] [address] [place] [address] Aug, Alcohol abuse F10.10 [facility] [address] 58173- 0892 16 Aug, 2016 [facility] [address] [place] [address] 14 Aug, 2016 Alcohol abuse F10.10 [facility] [id number] [place] [address] 08670- 5219 09 Aug, 2016 [facility] [address] [place] [address] Aug, Alcohol abuse F10.[address] [facility] [id number] [place] [address] 93969- 8300 Aug, [facility] [address] [place] [address] Jul, Alcohol abuse F10.10 [facility] [address] [place] [address] 24 Jul, 2016 Alcohol abuse F10.10 [facility] [id number] [place] [address] 51305- 6357 Jul, [facility] [address] [place] [address] 16 Jul, 2016 Alcohol abuse F10.10 [facility] [address] [place] [address] 07 Jul, 2016 [facility] F10.10 [facility] [address] [place] [address] Jun, Alcohol abuse F10.10 [facility] [address] [place] [address] 33351- 9036 Jun, [facility] [address] [place] [address] Jun, Alcohol abuse F10.10 [facility] [address] [place] [address] Jun, Alcohol abuse F10.10 [facility] [id number] [place] [address] 54629- 8415 May, Episode of recurrent major depressive disorder, unspecified depression episode severity F33.9 and Alcohol abuse F10.10 [facility] [address] [place] [address] May, Alcohol abuse F10.10 [facility] [id number] [place] [address] 26416- 8998 May, [facility] [id number] [place] [address] 11198- 6210 May, Episode of recurrent major depressive disorder, unspecified depression episode severity F33.9 and Alcohol abuse F10.10 [facility] [address] [place] [address] 30 Apr, 2016 Alcohol [facility] F10.10 [facility] [address] [place] [address] 23 Apr, [address] [facility] [id number] [place] [address] 92346- 7752 17 Apr, 2016 Alcohol abuse F10.10 and Episode of recurrent major depressive disorder, unspecified depression episode severity F33.9 [facility] [id number] [place] [address] 91674- 3278 07 Apr, 2016 [facility] [id number] [place] [address] 35684- 7322 29 Feb, 2016 Depressive disorder, not elsewhere classified F32.9 and Uncomplicated alcohol dependence F10.20 IMMUNIZATIONS No Known Immunizations SOCIAL HISTORY Never Assessed REASON FOR VISIT SUBA F/U PLAN OF CARE Activity Details Follow Up 2 - 3 Days Reason: VITAL SIGNS MEDICATIONS Unknown Medications RESULTS No Results PROCEDURES Procedure Date Ordered Result Body Site Alcohol and/or drug services Feb 09, 2017 INSTRUCTIONS MEDICATIONS ADMINISTERED No Known Medications MEDICAL (GENERAL) HISTORY Type Description Date Medical History broken neck Medical History Alcoholism Surgical History 2 neck surgeris 2016 Surgical History tonsillectomy Surgical History tubes put in ears Hospitalization History [facility] 2016 Hospitalization History tonsilectomy
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
--- OUTSIDE RECORDS SUMMARY | 2018-01-01 12:45 | XMS REPORT ---
Author Author ARY BURNETT Organization [facility] Address [address] [place] [address] Care Team Providers Care Medical Reviewer Name Role Phone ARY BURNETT Unavailable PROBLEMS Type Condition ICD9-CM Code [id number] Code Onset Dates Condition Status SNOMED Code Problem Uncomplicated alcohol dependence F10.20 Active 05661915 Problem Episode of recurrent major depressive disorder, unspecified depression episode severity F33.9 Active 633459479 Problem Alcohol abuse F10.10 Active 65491464 ALLERGIES No Information ENCOUNTERS Encounter Location Date Diagnosis [facility] [address] [place] [address] Nov, [facility] [address] [place] [address] Nov, Uncomplicated alcohol dependence F10.20 [facility] [id number] [place] [address] 65007- 5966 Nov, [facility] [id number] [place] [address] 43744- 9165 Nov, [facility] [id number] [place] [address] 65757- 5956 October, [facility] [id number] [place] [address] 47569- 3689 October, [facility] [address] [place] [address] October, Uncomplicated alcohol dependence F10.20 [facility] [address] [address] October, [facility] [address] 7[address] October, [facility] [address] [place] [address] October, Uncomplicated alcohol dependence F10.20 [facility] [id number] [place] [address] 50443- 4275 October, [facility] [id number] [place] [address] 63508- 0837 October, [facility] [id number] [place] [address] 75954- 1549 October, [facility] [address] [place] [address] October, Uncomplicated alcohol dependence F10.20 [facility] [id number] [place] [address] 50510- 3296 October, [facility] [id number] [place] [address] 47199- 9068 October, [facility] [id number] [place] [address] 20212- 7691 October, [facility] [id number] [place] [address] 52720- 5220 October, [facility] [address] [place] [address] October, Uncomplicated alcohol dependence F10.20 [facility] [address] [place] [address] Sep, Uncomplicated alcohol dependence F10.20 [facility] [address] [place] [address] Sep, Uncomplicated alcohol dependence F10.20 [facility] [id number] [place] [address] 11760- 9323 Sep, [facility] [address] [place] [address] Sep, Uncomplicated alcohol dependence F10.20 [facility] [id number] [place] [address] 90693- 7141 Sep, [facility] [address] [place] [address] Sep, Uncomplicated alcohol dependence F10.20 [facility] [id number] [place] [address] 36346- 5961 Sep, [facility] [address] [address] Sep, [facility] [address] [place] [address] Sep, Uncomplicated alcohol dependence F10.20 [facility] [id number] [place] [address] 53612- 4184 Sep, [facility] [address] 06547- 4114 Sep, [facility] [id number] [place] [address] 49348- 6068 Sep, [facility] [address] [place] [address] Sep, Uncomplicated alcohol dependence F10.20 [facility] [id number] [place] [address] 72162- 5294 Sep, [facility] [id number] [place] [address] 40520- 2910 30 Aug, 2017 [facility] [id number] [place] [address] 34943- 0722 29 Aug, 2017 [facility] [id number] [place] [address] 07393- 3381 Aug, [facility] [address] [place] [address] Aug, Uncomplicated alcohol dependence F10.20 [facility] [id number] [place] [address] 43236- 2654 Aug, [facility] [id number] [place] [address] 36541- 8512 Aug, [facility] [id number] [place] [address] 05521- 8846 Aug, [facility] [id number] [place] [address] 85135- 6753 19 Aug, 2017 [facility] [address] [place] [address] 15 Aug, 2017 Uncomplicated alcohol dependence F10.20 [facility] [id number] [place] [address] 37014- 4360 Aug, [facility] [id number] [place] [address] 93664- 7774 Aug, Uncomplicated alcohol dependence F10.20 [facility] [address] [place] [address] Aug, Uncomplicated alcohol dependence F10.20 [facility] [id number] [place] [address] 28998- 0674 Aug, [facility] [address] [place] [address] Aug, Uncomplicated alcohol dependence F10.20 [facility] [id number] [place] [address] 39887- 2752 Aug, [facility] [address] [place] [address] Aug, Uncomplicated alcohol dependence F10.20 [facility] [id number] [place] [address] 57410- 6618 Aug, [facility] [address] [place] [address] Aug, Uncomplicated alcohol dependence F10.20 [facility] [id number] [place] [address] 54812- 5295 Aug, [facility] [id number] [place] [address] 09269- 2883 Jul, [facility] [id number] [place] [address] 95987- 8586 Jul, [facility] [address] [place] [address] Jul, Uncomplicated alcohol dependence F10.20 [facility] [id number] [place] [address] 96052- 8298 Jul, [facility] [id number] [place] [address] 68964- 0861 Jul, [facility] [address] [place] [address] Jul, Uncomplicated alcohol dependence F10.20 [facility] [id number] [place] [address] 45649- 3676 Jul, [facility] [address] [place] [address] Jul, Uncomplicated alcohol dependence F10.20 [facility] [id number] [place] [address] 46556- 2428 15 Jul, 2017 [facility] [address] [place] [address] Jul, Uncomplicated alcohol dependence F10.20 [facility] [address] [place] [address] 12 Jul, 2017 Uncomplicated alcohol dependence F10.20 [facility] [address] 91777- 9675 08 Jul, 2017 [facility] [address] [place] [address] 08 Jul, 2017 Uncomplicated alcohol dependence F10.20 [facility] [address] [place] [address] 06 Jul, 2017 Uncomplicated alcohol dependence F10.20 [facility] [address] [place] [address] 05 Jul, 2017 Uncomplicated alcohol dependence F10.20 [facility] [address] [place] [address] Jun, Uncomplicated alcohol dependence F10.20 [facility] [address] [place] [address] May, Uncomplicated alcohol dependence F10.20 [facility] [id number] [place] [address] 75745- 0397 May, [facility] [address] 09693- 5094 May, Routine check-up Z00.00 [facility] [id number] [place] [address] 02723- 9340 14 May, 2017 [facility] [address] 35667- 9553 May, [facility] [id number] [place] [address] 66957 2540 29 Feb, 2016 [facility] [address] [place] [address] 29 Feb, 2016 Uncomplicated alcohol dependence F10.20 [facility] [address] [place] [address] 27 Feb, 2016 Uncomplicated alcohol dependence F10.20 [facility] [address] 20663 2546 21 Feb, 2016 [facility] [address] [place] [address] 21 Feb, 2016 Uncomplicated alcohol dependence F10.20 [facility] [address] [place] [address] 14 Feb, 2016 Uncomplicated alcohol dependence F10.20 [facility] [address] [place] [address] 12 Feb, 2016 Uncomplicated alcohol dependence F10.20 [facility] [address] [address] 2543 12 Feb, 2016 [facility] [address] [place] [address] 07 Feb, 2016 Uncomplicated alcohol dependence F10.20 [facility] [address] [address] 2546 07 Feb, 2016 [facility] [address] [place] [address] 05 Feb, 2016 Uncomplicated alcohol dependence F10.20 [facility] [id number] [place] [address] 27339 2541 05 Feb, 2016 [facility] [address] [place] [address] 30 Jan, 2017 Uncomplicated alcohol dependence F10.20 [facility] [address] [place] [address] Jan, Uncomplicated alcohol dependence F10.20 [facility] [address] [place] [address] Dec, Alcohol abuse F10.10 and Uncomplicated alcohol dependence F10.20 [facility] [address] [place] [address] Dec, Alcohol abuse F10.10 [facility] [address] [place] [address] Dec, Alcohol abuse F10.10 [facility] [address] [place] [address] Dec, Alcohol abuse F10.10 [facility] [address] [place] [address] Nov, Alcohol abuse F10.10 [facility] [id number] [place] [address] 17344- 8366 Nov, [facility] [address] [place] [address] Nov, Alcohol abuse F10.10 [facility] [address] [place] [address] Nov, Alcohol abuse F10.10 [facility] [id number] [place] [address] 89276- 6368 Nov, [facility] [id number] [place] [address] 67775- 4094 Nov, [facility] [id number] [place] [address] 45355- 9136 October, [facility] [address] [place] [address] October, Alcohol abuse F10.10 [facility] [id number] [place] [address] 44159- 6025 October, [facility] [address] [address] 43[address] October, [facility] [id number] [place] [address] 47089- 2022 October, [facility] [address] [place] [address] October, Alcohol abuse F10.10 [facility] [address] [place] [address] October, Alcohol abuse F10.10 [facility] [address] [address] 4[address] Sep, Alcohol abuse F10.10 [facility] [id number] [address] 1406 Sep, [facility] [address] [place] [address] Sep, Alcohol abuse F10.10 [facility] [id number] [place] [address] 55288 2546 Sep, [facility] [address] [place] [address] Sep, Alcohol abuse F10.10 [facility] [id number] [place] [address] 13816- 6746 Sep, [facility] [id number] [place] [address] 24595- 8196 Sep, [facility] [id number] [place] [address] 60777- 8607 30 Aug, 2016 [facility] [address] [place] [address] 28 Aug, 2016 Alcohol abuse F10.10 [facility] [id number] [place] [address] 48705- 3634 23 Aug, 2016 [facility] [address] [place] [address] 21 Aug, 2016 Alcohol abuse F10.10 [facility] [id number] [place] [address] 93076- 3276 16 Aug, 2016 [facility] [address] [place] [address] 14 Aug, 2016 Alcohol abuse F10.10 [facility] [address] [place] [address] 02474- 2543 09 Aug, 2016 [facility] [address] [place] [address] 07 Aug, 2016 Alcohol abuse F10.10 [facility] [address] [place] [address] 64253- 0776 02 Aug, 2016 [facility] [address] [place] [address] 28 Jul, 2016 Alcohol abuse F10.10 [facility] [address] [place] [address] Jul, Alcohol abuse F10.10 [facility] [id number] [address] Jul, [facility] [address] [place] [address] Jul, Alcohol abuse F10.10 [facility] [address] [place] [address] Jul, Alcohol abuse F10.10 [facility] [address] [place] [address] Jun, Alcohol abuse F10.10 [facility] [id number] [place] [address] 32186- 9112 Jun, [facility] [address] [place] [address] Jun, Alcohol abuse F10.10 [facility] [address] [place] [address] Jun, Alcohol abuse F10.10 [facility] [id number] [place] [address] 39385- 5599 May, Episode of recurrent major depressive disorder, unspecified depression episode severity F33.9 and Alcohol abuse F10.10 [facility] [address] [place] [address] May, Alcohol abuse F10.10 [facility] [id number] [place] [address] 25017- 7488 May, [facility] [id number] [place] [address] 75407- 8610 May, Episode of recurrent major depressive disorder, unspecified depression episode severity F33.9 and Alcohol abuse F10.10 [facility] [address] [place] [address] Apr, Alcohol abuse F10.10 [facility] [address] [place] [address] Apr, Alcohol abuse F10.10 [facility] [id number] [place] [address] 41748- 7050 Apr, Alcohol abuse F10.10 and Episode of recurrent major depressive disorder, unspecified depression episode severity F33.9 [facility] [address] [facility] [id number] [place] [address] Apr, [facility] [address] [facility] [id number] [place] [address] Feb, Depressive disorder, not elsewhere classified F32.9 and Uncomplicated alcohol dependence F10.20 IMMUNIZATIONS No Known Immunizations SOCIAL HISTORY Never Assessed REASON FOR VISIT PRSUB-GRP PLAN OF CARE VITAL SIGNS MEDICATIONS Unknown [...]
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
--- OUTSIDE RECORDS SUMMARY | 2018-01-01 12:45 | XMS REPORT ---
Author Author VERONIKA HAYNES Organization [facility] Address [address] [place] [address] Care Team Providers Care Dealmaker Name Role Phone VERONIKA HAYNES Unavailable PROBLEMS Type Condition ICD9-CM Code IVD71-[id number] Code Onset Dates Condition Status SNOMED Code Problem Uncomplicated alcohol dependence F10.20 Active 76899293 Problem Episode of recurrent major depressive disorder, unspecified depression episode severity F33.9 Active 611239001 Problem Alcohol abuse F10.10 Active 80323689 ALLERGIES No Information ENCOUNTERS Encounter Location Date Diagnosis [facility] [address] [place] [address] Nov, [facility] [address] [place] [address] Nov, Uncomplicated alcohol dependence F10.20 [facility] [id number] [place] [address] 81319- 6341 Nov, [facility] [id number] [place] [address] 38451- 4409 Nov, [facility] [id number] [place] [address] 63925- 1988 October, [facility] [id number] [place] [address] 88762- 7935 October, [facility] [address] [place] [address] October, Uncomplicated alcohol dependence F10.20 [facility] [id number] [place] [address] 57162- 1046 October, [facility] [id number] [place] [address] 93253- 4691 October, [facility] [address] [place] [address] October, Uncomplicated alcohol dependence F10.20 [facility] [address] [place] [address] 20810- 2695 October, [facility] [id number] [place] [address] 06877- 4483 October, [facility] [id number] [place] [address] 24024- 5067 October, [facility] [address] [place] [address] October, Uncomplicated alcohol dependence F10.20 [facility] [id number] [place] [address] 89611- 2904 October, [facility] [id number] [place] [address] 65400- 5703 October, [facility] [id number] [place] [address] 34283- 7134 October, [facility] [id number] [place] [address] 92483- 3687 October, [facility] [address] [place] [address] October, Uncomplicated alcohol dependence F10.20 [facility] [address] [place] [address] Sep, Uncomplicated alcohol dependence F10.20 [facility] [address] [place] [address] Sep, Uncomplicated alcohol dependence F10.20 [facility] [id number] [place] [address] 73996- 6398 Sep, [facility] [address] [place] [address] Sep, Uncomplicated alcohol dependence F10.20 [facility] [id number] [place] [address] 34648- 0669 Sep, [facility] [address] [place] [address] Sep, Uncomplicated alcohol dependence F10.20 [facility] [id number] [place] [address] 02890- 9911 Sep, [facility] [address] [address] 12[address] Sep, [facility] [address] [place] [address] Sep, Uncomplicated alcohol dependence F10.20 [facility] [address] [place] [address] 24911- 1887 Sep, [facility] [address] 83379- 3366 Sep, [facility] [id number] [place] [address] 34772- 8954 Sep, [facility] [address] [place] [address] Sep, Uncomplicated alcohol dependence F10.20 [facility] [id number] [place] [address] 94229- 8669 Sep, [facility] [id number] [place] [address] 32038- 9384 30 Aug, 2017 [facility] [id number] [place] [address] 29112- 5858 29 Aug, 2017 [facility] [id number] [place] [address] 08600- 3401 Aug, [facility] [address] [place] [address] Aug, Uncomplicated alcohol dependence F10.20 [facility] [address] [place] [address] 15327- 3817 Aug, [facility] [id number] [place] [address] 89213- 9976 Aug, [facility] [id number] [place] [address] 13057- 0815 Aug, [facility] [address] [place] [address] 09478- 4311 19 Aug, 2017 [facility] [address] [place] [address] 15 Aug, 2017 Uncomplicated alcohol dependence F10.20 [facility] [address] [place] [address] 02188- 0092 Aug, [facility] [id number] [place] [address] 75235- 1263 Aug, Uncomplicated alcohol dependence F10.20 [facility] [address] [place] [address] Aug, Uncomplicated alcohol dependence F10.20 [facility] [id number] [place] [address] 95050- 7255 Aug, [facility] [address] [place] [address] Aug, Uncomplicated alcohol dependence F10.20 [facility] [id number] [place] [address] 01215- 2255 Aug, [facility] [address] [place] [address] Aug, Uncomplicated alcohol dependence F10.20 [facility] [id number] [place] [address] 37185- 0630 Aug, [facility] [address] [place] [address] Aug, Uncomplicated alcohol dependence F10.20 [facility] [id number] [place] [address] 76583- 2363 Aug, [facility] [id number] [place] [address] 26448- 3301 Jul, [facility] [id number] [place] [address] 62116- 1182 Jul, [facility] [address] [place] [address] Jul, Uncomplicated alcohol dependence F10.20 [facility] [id number] [place] [address] 71806- 6041 Jul, [facility] [id number] [place] [address] 51474- 9959 Jul, [facility] [address] [place] [address] Jul, Uncomplicated alcohol dependence F10.20 [facility] [id number] [place] [address] 12624- 6114 Jul, [facility] [address] [place] [address] Jul, Uncomplicated alcohol dependence F10.20 [facility] [id number] [place] [address] 41804- 1785 15 Jul, 2017 [facility] [address] [place] [address] Jul, Uncomplicated alcohol dependence F10.20 [facility] [address] [place] [address] 12 Jul, 2017 Uncomplicated alcohol dependence F10.20 [facility] [address] 45392- 0231 08 Jul, 2017 [facility] [address] [place] [address] 08 Jul, 2017 Uncomplicated alcohol dependence F10.20 [facility] [address] [place] [address] 06 Jul, 2017 Uncomplicated alcohol dependence F10.20 [facility] [address] [place] [address] 05 Jul, 2017 Uncomplicated alcohol dependence F10.20 [facility] [address] [place] [address] Jun, Uncomplicated alcohol dependence F10.20 [facility] [address] [place] [address] May, Uncomplicated alcohol dependence F10.20 [facility] [id number] [place] [address] 04151- 3220 May, [facility] [address] 63719- 0236 May, Routine check-up Z00.00 [facility] [id number] [place] [address] 27953- 0418 14 May, 2017 [facility] [address] 15595- 8220 May, [facility] [id number] [place] [address] 75244 2547 29 Feb, 2016 [facility] [address] [place] [address] 29 Feb, 2016 Uncomplicated alcohol dependence F10.20 [facility] [address] [place] [address] 27 Feb, 2016 Uncomplicated alcohol dependence F10.20 [facility] [address] [address] 2546 21 Feb, 2016 [facility] [address] [place] [address] 21 Feb, 2016 Uncomplicated alcohol dependence F10.20 [facility] [address] [place] [address] 14 Feb, 2016 Uncomplicated alcohol dependence F10.20 [facility] [address] [place] [address] 12 Feb, 2016 Uncomplicated alcohol dependence F10.20 [facility] [address] [address] 2548 12 Feb, 2016 [facility] [address] [place] [address] 07 Feb, 2016 Uncomplicated alcohol dependence F10.20 [facility] [address] [address] 2546 07 Feb, 2016 [facility] [address] [place] [address] 05 Feb, 2016 Uncomplicated alcohol dependence F10.20 [facility] [id number] [place] [address] 82575 2542 05 Feb, 2016 [facility] [address] [place] [address] 30 Jan, 2017 Uncomplicated alcohol dependence F10.20 [facility] [address] [place] [address] Jan, Uncomplicated alcohol dependence F10.20 [facility] [address] [place] [address] Dec, Alcohol abuse F10.10 and Uncomplicated alcohol dependence F10.20 [facility] [address] [place] [address] Dec, Alcohol abuse F10.10 [facility] [address] [place] [address] Dec, Alcohol abuse F10.10 [facility] [address] [place] [address] Dec, Alcohol abuse F10.10 [facility] [address] [place] [address] Nov, Alcohol abuse F10.10 [facility] [address] [place] [address] 43142- 5666 Nov, [facility] [address] [place] [address] Nov, Alcohol abuse F10.10 [facility] [address] [place] [address] Nov, Alcohol abuse F10.10 [facility] [address] [place] [address] 69752- 2624 Nov, [facility] [place] [address] [place] [address] 25269- 5705 Nov, [facility] [id number] [place] [address] 91240- 9309 October, [facility] [address] [place] [address] October, Alcohol abuse F10.10 [facility] [address] [place] [address] 63763- 1122 October, [facility] [address] [address]- 7933 October, [facility] [address] [place] [address] 57214- 0767 October, [facility] [address] [place] [address] October, Alcohol abuse F10.10 [facility] [address] [place] [address] October, Alcohol abuse F10.10 [facility] [place] [address] [address]- 6381 Sep, Alcohol abuse F10.10 [facility] [id number] [address]- 6936 Sep, [facility] [address] [place] [address] Sep, Alcohol abuse F10.10 [facility] [id number] [place] [address] 27364 2546 Sep, [facility] [address] [place] [address] Sep, Alcohol abuse F10.10 [facility] [id number] [place] [address] 86921- 9266 Sep, [facility] [id number] [place] [address] 13256- 6266 Sep, [facility] [id number] [place] [address] 00390- 0425 30 Aug, 2016 [facility] [address] [place] [address] 28 Aug, 2016 Alcohol abuse F10.10 [facility] [id number] [place] [address] 98237- 1651 23 Aug, 2016 [facility] [address] [place] [address] 21 Aug, 2016 Alcohol abuse F10.10 [facility] [id number] [place] [address] 16932- 6356 16 Aug, 2016 [facility] [address] [place] [address] 14 Aug, 2016 Alcohol abuse F10.10 [facility] [address] [place] [address] 91004- 2545 09 Aug, 2016 [facility] [address] [place] [address] 07 Aug, 2016 Alcohol abuse F10.10 [facility] [address] [place] [address] 67528- 8096 02 Aug, 2016 [facility] [address] [place] [address] 28 Jul, 2016 Alcohol abuse F10.10 [facility] [address] [place] [address] Jul, Alcohol abuse F10.10 [facility] [id number] [address]- 7663 Jul, [facility] [address] [place] [address] Jul, Alcohol abuse F10.10 [facility] [address] [place] [address] Jul, Alcohol abuse F10.10 [facility] [address] [place] [address] Jun, Alcohol abuse F10.10 [facility] [id number] [place] [address] 17627- 1253 Jun, [facility] [address] [place] [address] Jun, Alcohol abuse F10.10 [facility] [address] [place] [address] Jun, Alcohol abuse F10.10 [facility] [id number] [place] [address] 48623- 5898 May, Episode of recurrent major depressive disorder, unspecified depression episode severity F33.9 and Alcohol abuse F10.10 [facility] [address] [place] [address] May, Alcohol abuse F10.10 [facility] [address] [place] [address] 43298- 7242 May, [facility] [id number] [place] [address] 27044- 0655 May, Episode of recurrent major depressive disorder, unspecified depression episode severity F33.9 and Alcohol abuse F10.10 [facility] [address] [place] [address] Apr, Alcohol abuse F10.10 [facility] [address] [place] [address] Apr, Alcohol abuse F10.10 [facility] [address] [place] [address] 69501- 5324 Apr, Alcohol abuse F10.10 and Episode of recurrent major depressive disorder, unspecified depression episode severity F33.9 [facility] [address] [facility] [id number] [address]- 1420 Apr, [facility] [address] [facility] [id number] [place] [address]- 5331 Feb, Depressive disorder, not elsewhere classified F32.9 [...]
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
--- OUTSIDE RECORDS SUMMARY | 2018-01-01 12:46 | XMS REPORT ---
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 Name Role Phone VERONIKA HAYNES Unavailable PROBLEMS Type Condition ICD9-CM Code EOX77-XE Code Onset Dates Condition Status SNOMED Code Problem Uncomplicated alcohol dependence F10.20 Active 76832612 Problem Episode of recurrent major depressive disorder, unspecified depression episode severity F33.9 Active 778293794 Problem Alcohol abuse F10.10 Active 43026957 ALLERGIES No Information ENCOUNTERS Encounter Location Date Diagnosis [facility] [address] [place] [address] Nov, [facility] [address] [place] [address] Nov, Uncomplicated alcohol dependence F10.20 [facility] [id number] [place] [address] 57414- 9913 Nov, [facility] [id number] [place] [address] 36472- 0672 Nov, [facility] [id number] [place] [address] 04471- 7729 October, [facility] [id number] [place] [address] 82622- 2441 October, [facility] [address] [place] [address] October, Uncomplicated alcohol dependence F10.20 [facility] [id number] [place] [address] 78538- 4681 October, [facility] [id number] [place] [address] 24804- 8844 October, [facility] [address] [place] [address] October, Uncomplicated alcohol dependence F10.20 [facility] [id number] [place] [address] 54005- 9034 October, [facility] [id number] [place] [address] 97411- 7174 October, [facility] [id number] [place] [address] 00484- 0846 October, [facility] [address] [place] [address] October, Uncomplicated alcohol dependence F10.20 [facility] [id number] [place] [address] 90200- 3616 October, [facility] [id number] [place] [address] 58559- 3961 October, [facility] [id number] [place] [address] 50443- 2105 October, [facility] [id number] [place] [address] 39790- 8607 October, [facility] [address] [place] [address] October, Uncomplicated alcohol dependence F10.20 [facility] [address] [place] [address] Sep, Uncomplicated alcohol dependence F10.20 [facility] [address] [place] [address] Sep, Uncomplicated alcohol dependence F10.20 [facility] [id number] [place] [address] 97954- 1132 Sep, [facility] [address] [place] [address] Sep, Uncomplicated alcohol dependence F10.20 [facility] [id number] [place] [address] 02176- 7451 Sep, [facility] [address] [place] [address] Sep, Uncomplicated alcohol dependence F10.20 [facility] [id number] [place] [address] 31097- 7756 Sep, [facility] [address] [place] [address] Sep, [facility] [address] [place] [address] Sep, Uncomplicated alcohol dependence F10.20 [facility] [id number] [place] [address] 38103- 4414 Sep, [facility] [address] 60056- 9175 Sep, [facility] [id number] [place] [address] 84399- 4771 Sep, [facility] [address] [place] [address] Sep, Uncomplicated alcohol dependence F10.20 [facility] [id number] [place] [address] 50259- 2674 Sep, [facility] [id number] [place] [address] 93234- 9542 30 Aug, 2017 [facility] [id number] [place] [address] 56199- 4925 29 Aug, 2017 [facility] [id number] [place] [address] 85726- 0216 Aug, [facility] [address] [place] [address] Aug, Uncomplicated alcohol dependence F10.20 [facility] [id number] [place] [address] 60658- 0186 Aug, [facility] [id number] [place] [address] 50032- 6653 Aug, [facility] [id number] [place] [address] 83033- 7536 Aug, [facility] [id number] [place] [address] 87073- 1942 19 Aug, 2017 [facility] [address] [place] [address] 15 Aug, 2017 Uncomplicated alcohol dependence F10.20 [facility] [id number] [place] [address] 08932- 4731 Aug, [facility] [id number] [place] [address] 50253- 4607 Aug, Uncomplicated alcohol dependence F10.20 [facility] [address] [place] [address] Aug, Uncomplicated alcohol dependence F10.20 [facility] [id number] [place] [address] 55502- 4359 Aug, [facility] [address] [place] [address] Aug, Uncomplicated alcohol dependence F10.20 [facility] [id number] [place] [address] 56621- 6962 Aug, [facility] [address] [place] [address] Aug, Uncomplicated alcohol dependence F10.20 [facility] [id number] [place] [address] 55753- 7668 Aug, [facility] [address] [place] [address] Aug, Uncomplicated alcohol dependence F10.20 [facility] [id number] [place] [address] 71366- 2047 Aug, [facility] [id number] [place] [address] 01928- 1888 Jul, [facility] [id number] [place] [address] 04177- 7821 Jul, [facility] [address] [place] [address] Jul, Uncomplicated alcohol dependence F10.20 [facility] [id number] [place] [address] 69489- 9788 Jul, [facility] [id number] [place] [address] 76608- 5297 Jul, [facility] [address] [place] [address] Jul, Uncomplicated alcohol dependence F10.20 [facility] [id number] [place] [address] 99938- 8884 Jul, [facility] [address] [place] [address] Jul, Uncomplicated alcohol dependence F10.20 [facility] [id number] [place] [address] 63873- 7829 15 Jul, 2017 [facility] [address] [place] [address] Jul, Uncomplicated alcohol dependence F10.20 [facility] [address] [place] [address] 12 Jul, 2017 Uncomplicated alcohol dependence F10.20 [facility] [address] 53675- 5429 08 Jul, 2017 [facility] [address] [place] [address] 08 Jul, 2017 Uncomplicated alcohol dependence F10.20 [facility] [address] [place] [address] 06 Jul, 2017 Uncomplicated alcohol dependence F10.20 [facility] [address] [place] [address] 05 Jul, 2017 Uncomplicated alcohol dependence F10.20 [facility] [address] [place] [address] Jun, Uncomplicated alcohol dependence F10.20 [facility] [address] [place] [address] May, Uncomplicated alcohol dependence F10.20 [facility] [id number] [place] [address] 62735- 2689 May, [facility] [address] 28780- 1781 May, Routine check-up Z00.00 [facility] [id number] [place] [address] 36971- 6044 14 May, 2017 [facility] [address] 76804- 7942 May, [facility] [id number] [place] [address] 25056 2541 29 Feb, 2016 [facility] [address] [place] [address] 29 Feb, 2016 Uncomplicated alcohol dependence F10.20 [facility] [address] [place] [address] 27 Feb, 2016 Uncomplicated alcohol dependence F10.20 [facility] [address] 26263 2546 21 Feb, 2016 [facility] [address] [place] [address] 21 Feb, 2016 Uncomplicated alcohol dependence F10.20 [facility] [address] [place] [address] 14 Feb, 2016 Uncomplicated alcohol dependence F10.20 [facility] [address] [place] [address] 12 Feb, 2016 Uncomplicated alcohol dependence F10.20 [facility] [address] [address] 2544 12 Feb, 2016 [facility] [address] [place] [address] 07 Feb, 2016 Uncomplicated alcohol dependence F10.20 [facility] [address] [address] 2546 07 Feb, 2016 [facility] [address] [place] [address] 05 Feb, 2016 Uncomplicated alcohol dependence F10.20 [facility] [id number] [place] [address] 55716 2544 05 Feb, 2016 [facility] [address] [place] [address] 30 Jan, 2017 Uncomplicated alcohol dependence F10.20 [facility] [address] [place] [address] Jan, Uncomplicated alcohol dependence F10.20 [facility] [address] [place] [address] Dec, Alcohol abuse F10.10 and Uncomplicated alcohol dependence F10.20 [facility] [address] [place] [address] Dec, Alcohol abuse F10.10 [facility] [address] [place] [address] Dec, Alcohol abuse F10.10 [facility] [address] [place] [address] Dec, Alcohol abuse F10.10 [facility] [address] [place] [address] Nov, Alcohol abuse F10.10 [facility] [address] [place] [address] 12056- 1656 Nov, [facility] [address] [place] [address] Nov, Alcohol abuse F10.10 [facility] [address] [place] [address] Nov, Alcohol abuse F10.10 [facility] [id number] [place] [address] 46381- 3163 Nov, [facility] [id number] [place] [address] 80756- 3857 Nov, [facility] [id number] [place] [address] 74529- 5658 October, [facility] [address] [place] [address] October, Alcohol abuse F10.10 [facility] [id number] [place] [address] 72786- 9908 October, [facility] [address], [place] [address] October, [facility] [id number] [place] [address] 85520- 9526 October, [facility] [address] [place] [address] October, Alcohol abuse F10.10 [facility] [address] [place] [address] October, Alcohol abuse F10.10 [facility] [address], [place] [address] Sep, Alcohol abuse F10.10 [facility] [id number] [place] [address] 7416 Sep, [facility] [address] [place] [address] Sep, Alcohol abuse F10.10 [facility] [id number] [place] [address] 52075 2546 Sep, [facility] [address] [place] [address] Sep, Alcohol abuse F10.10 [facility] [id number] [place] [address] 83954- 4666 Sep, [facility] [id number] [place] [address] 89600- 3986 Sep, [facility] [id number] [place] [address] 09146- 7956 30 Aug, 2016 [facility] [address] [place] [address] 28 Aug, 2016 Alcohol abuse F10.10 [facility] [id number] [place] [address] 66625- 5036 23 Aug, 2016 [facility] [address] [place] [address] 21 Aug, 2016 Alcohol abuse F10.10 [facility] [id number] [place] [address] 84574- 0556 16 Aug, 2016 [facility] [address] [place] [address] 14 Aug, 2016 Alcohol abuse F10.10 [facility] [address] [place] [address] 98115- 2544 09 Aug, 2016 [facility] [address] [place] [address] 07 Aug, 2016 Alcohol abuse F10.10 [facility] [address] [place] [address] 91152- 8406 02 Aug, 2016 [facility] [address] [place] [address] 28 Jul, 2016 Alcohol abuse F10.10 [facility] [address] [place] [address] Jul, Alcohol abuse F10.10 [facility] [id number] [address] Jul, [facility] [address] [place] [address] Jul, Alcohol abuse F10.10 [facility] [address] [place] [address] Jul, Alcohol abuse F10.10 [facility] [address] [place] [address] Jun, Alcohol abuse F10.10 [facility] [id number] [place] [address] 86246- 4817 Jun, [facility] [address] [place] [address] Jun, Alcohol abuse F10.10 [facility] [address] [place] [address] Jun, Alcohol abuse F10.10 [facility] [id number] [place] [address] 48715- 5171 May, Episode of recurrent major depressive disorder, unspecified depression episode severity F33.9 and Alcohol abuse F10.10 [facility] [address] [place] [address] May, Alcohol abuse F10.10 [facility] [address] [place] [address] 97304- 5266 May, [facility] [id number] [place] [address] 76429- 9710 May, Episode of recurrent major depressive disorder, unspecified depression episode severity F33.9 and Alcohol abuse F10.10 [facility] [address] [place] [address] Apr, Alcohol abuse F10.10 [facility] [address] [place] [address] Apr, Alcohol abuse F10.10 [facility] [id number] [place] [address] 74909- 5401 Apr, Alcohol abuse F10.10 and Episode of recurrent major depressive disorder, unspecified depression episode severity F33.9 [facility] [address] [facility] [id number] [place] [address]- 7461 Apr, [facility] [address] [facility] [id number] [place] [address] 2325 Feb, Depressive disorder, not elsewhere classified F32.9 [...]
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
--- OUTSIDE RECORDS SUMMARY | 2018-01-01 12:47 | XMS REPORT ---
Author Author MARIAM ORANTES [facility] Address [address] [place] [address] Care Team Providers Care Eligibility Examiner Name Role Phone ROLANDA MARIAM Unavailable PROBLEMS Type Condition ICD9-CM Code [id number] Code Onset Dates Condition Status SNOMED Code Problem Uncomplicated alcohol dependence F10.20 Active 84080764 Problem Episode of recurrent major depressive disorder, unspecified depression episode severity F33.9 Active 217061832 Problem Alcohol abuse F10.10 Active 69031542 ALLERGIES No Information ENCOUNTERS Encounter Location Date Diagnosis [facility] [id number] [place] [address] 86997- 0008 October, [facility] [id number] [place] [address] 22343- 1013 October, [facility] [address] [place] [address] October, Uncomplicated alcohol dependence F10.20 [facility] [id number] [place] [address] 76900- 3015 October, [facility] [id number] [place] [address] 40771- 0869 October, [facility] [address] [place] [address] October, Uncomplicated alcohol dependence F10.20 [facility] [id number] [place] [address] 44337- 5865 October, [facility] [id number] [place] [address] 80426- 7744 October, [facility] [id number] [place] [address] 98028- 6525 October, [facility] [address] [place] [address] October, Uncomplicated alcohol dependence F10.20 [facility] [id number] [place] [address] 40929- 0692 October, [facility] [id number] [place] [address] 17366- 1451 October, [facility] [id number] [place] [address] 07246- 4625 October, [facility] [address] 15042- 8656 October, [facility] [address] [place] [address] October, Uncomplicated alcohol dependence F10.20 [facility] [address] [place] [address] Sep, Uncomplicated alcohol dependence F10.20 [facility] [address] [place] [address] Sep, Uncomplicated alcohol dependence F10.20 [facility] [address] 48515- 6287 Sep, [facility] [address] [place] [address] Sep, Uncomplicated alcohol dependence F10.20 [facility] [id number] [place] [address] 78664- 8943 Sep, [facility] [address] [place] [address] Sep, Uncomplicated alcohol dependence F10.20 [facility] [id number] [place] [address] 56369- 3728 Sep, [facility] [id number] [place] [address] 01878- 0508 Sep, [facility] [address] [place] [address] Sep, Uncomplicated alcohol dependence F10.20 [facility] [id number] [place] [address] 43430- 2831 Sep, [facility] [id number] [place] [address] 24754- 2804 Sep, [facility] [place] [address] [address] Sep, [facility] [address] [place] [address] Sep, Uncomplicated alcohol dependence F10.20 [facility] [id number] [place] [address] 60078- 4560 Sep, [facility] [id number] [place] [address] 54482- 6111 30 Aug, 2017 [facility] [id number] [place] [address] 84049- 5441 29 Aug, 2017 [facility] [id number] [place] [address] 57113- 2119 27 Aug, 2017 [facility] [address] [place] [address] Aug, Uncomplicated alcohol dependence F10.20 [facility] [id number] [place] [address] 46488- 5484 22 Aug, 2017 [facility] [id number] [place] [address] 51633- 3128 22 Aug, 2017 [facility] [id number] [place] [address] 14843- 0247 Aug, [facility] [id number] [place] [address] 15828- 6471 19 Aug, 2017 [facility] [address] [place] [address] 15 Aug, 2017 Uncomplicated alcohol dependence F10.20 [facility] [id number] [place] [address] 68451- 1829 15 Aug, 2017 [facility] [id number] [place] [address] 65043- 4065 15 Aug, 2017 Uncomplicated alcohol dependence F10.20 [facility] [address] [place] [address] 13 Aug, 2017 Uncomplicated alcohol dependence F10.20 [facility] [address] [place] [address] 4[address] Aug, [facility] [address] [place] [address] Aug, Uncomplicated alcohol dependence F10.20 [facility] [id number] [place] [address] 47856- 3246 Aug, [facility] [address] [place] [address] Aug, Uncomplicated alcohol dependence F10.20 [facility] [id number] [place] [address] 86730- 2261 Aug, [facility] [address] [place] [address] Aug, Uncomplicated alcohol dependence F10.20 [facility] [id number] [place] [address] 37078- 5202 Aug, [facility] [id number] [place] [address] 88411- 3457 Jul, [facility] [id number] [place] [address] 57534- 6734 Jul, [facility] [address] [place] [address] Jul, Uncomplicated alcohol dependence F10.20 [facility] [id number] [place] [address] 58900- 9771 Jul, [facility] [id number] [place] [address] 47420- 1837 Jul, [facility] [address] [place] [address] Jul, Uncomplicated alcohol dependence F10.20 [facility] [id number] [place] [address] 41132- 2763 Jul, [facility] [address] [place] [address] Jul, Uncomplicated alcohol dependence F10.20 [facility] [id number] [place] [address] 46187- 5416 Jul, [facility] [address] [place] [address] 15 Jul, 2017 Uncomplicated alcohol dependence F10.20 [facility] [address] [place] [address] 12 Jul, 2017 Uncomplicated alcohol dependence F10.20 [facility] [id number] [place] [address] 84096- 4584 08 Jul, 2017 [facility] [address] [place] [address] 08 Jul, 2017 Uncomplicated alcohol dependence F10.20 [facility] [address] [place] [address] 06 Jul, 2017 Uncomplicated alcohol dependence F10.20 [facility] [address] [place] [address] 05 Jul, 2017 Uncomplicated alcohol dependence F10.20 [facility] [address] [place] [address] Jun, Uncomplicated alcohol dependence F10.20 [facility] [address] [place] [address] May, Uncomplicated alcohol dependence F10.20 [facility] [id number] [place] [address] 15652- 7364 May, [facility] [address] 21262- 7746 May, Routine check-up Z00.00 [facility] [id number] [place] [address] 99008- 1223 14 May, 2017 [facility] [id number] [place] [address] 50369- 3080 May, [facility] [id number] [place] [address] 50505- 7277 29 Feb, 2017 [facility] [address] [place] [address] 29 Feb, 2017 Uncomplicated alcohol dependence F10.20 [facility] [address] [place] [address] 27 Feb, 2017 Uncomplicated alcohol dependence F10.20 [facility] [address] 07906- 4900 21 Feb, 2017 [facility] [address] [place] [address] 21 Feb, 2016 Uncomplicated alcohol dependence F10.20 [facility] [address] [place] [address] 14 Feb, 2016 Uncomplicated alcohol dependence F10.20 [facility] [address] [place] [address] 12 Feb, 2016 Uncomplicated alcohol dependence F10.20 [facility] [place] [facility] [id number] [place] [address] 25312- 9609 12 Feb, 2016 [facility] [address] [place] [address] 07 Feb, 2016 Uncomplicated alcohol dependence F10.20 [facility] [place] [facility] [address] 98393- 6738 07 Feb, 2016 [facility] [address] [place] [address] 05 Feb, 2016 Uncomplicated alcohol dependence F10.20 [facility] [place] [facility] [address] 45163- 1000 05 Feb, 2016 [facility] [address] [place] [address] 30 Jan, 2017 Uncomplicated alcohol dependence F10.20 [facility] [address] [place] [address] Jan, Uncomplicated alcohol dependence F10.20 [facility] [address] [place] [address] Dec, Alcohol abuse F10.10 and Uncomplicated alcohol dependence F10.20 [facility] [address] [place] [address] Dec, Alcohol abuse F10.10 [facility] [address] [place] [address] 18 Dec, 2016 Alcohol abuse F10.10 [facility] [address] [place] [address] Dec, Alcohol abuse F10.10 [facility] [address] [place] [address] Nov, Alcohol abuse F10.10 [facility] [place] [facility] [id number] [place] [address] 23026- 1404 Nov, [facility] [address] [place] [address] Nov, Alcohol abuse F10.10 [facility] [address] [place] [address] Nov, Alcohol abuse F10.10 [facility] [address] [address] 9[address] Nov, [facility] [id number] [place] [address] 15192- 2952 Nov, [facility] [id number] [place] [address] 21017- 5410 October, [facility] [address] [place] [address] October, Alcohol abuse F10.10 [facility] [id number] [place] [address] 41167- 7038 October, [facility] [id number] [place] [address] 77866- 9324 October, [facility] [place] [id number] [place] [address] 91357- 6891 October, [facility] [address] [place] [address] October, Alcohol abuse F10.10 [facility] [address] [place] [address] October, Alcohol abuse F10.10 [facility] [address] [place] [address] 29229- 3996 Sep, Alcohol abuse F10.10 [facility] [address] [place] [address] 45895- 3437 Sep, [facility] [address] [place] [address] Sep, Alcohol abuse F10.10 [facility] [address] [place] [address] 46249- 4286 Sep, [facility] [address] [place] [address] Sep, Alcohol abuse F10.10 [facility] [address] [address] 5857 04 Sep, 2016 [facility] [place] [facility] [id number] [place] [address] 09832- 9639 03 Sep, 2016 [facility] [place] [facility] [id number] [place] [address] 87422- 1688 30 Aug, 2016 [facility] [address] [place] [address] 28 Aug, 2016 Alcohol abuse F10.10 [facility] [place] [facility] [id number] [place] [address] 55910- 3974 Aug, [facility] [address] [place] [address] 21 Aug, 2016 Alcohol abuse F10.10 [facility] [place] [facility] [id number] [place] [address] 45128- 7197 16 Aug, 2016 [facility] [address] [place] [address] 14 Aug, 2016 Alcohol abuse F10.10 [facility] [place] [facility] [id number] [place] [address] 21618- 3488 Aug, [facility] [address] [place] [address] 07 Aug, 2016 Alcohol abuse F10.10 [facility] [place] [facility] [id number] [place] [address] 02072- 3945 Aug, [facility] [address] [place] [address] 28 Jul, 2016 Alcohol abuse F10.10 [facility] [address] [place] [address] 24 Jul, 2016 Alcohol abuse F10.10 [facility] [place] [facility] [address] [place] [address] 21768- 1004 23 Jul, 2016 [facility] [address] [place] [address] 16 Jul, 2016 Alcohol abuse F10.10 [facility] [address] [place] [address] 07 Jul, 2016 Alcohol abuse F10.10 [facility] [address] [place] [address] Jun, Alcohol abuse F10.10 [facility] [id number] [place] [address] 15071- 4224 Jun, [facility] [address] [place] [address] Jun, Alcohol abuse F10.10 [facility] [address] [place] [address] Jun, Alcohol abuse F10.10 [facility] [address] 755277- 4400 May, Episode of recurrent major depressive disorder, unspecified depression episode severity F33.9 and Alcohol abuse F10.10 [facility] [address] [place] [address] May, Alcohol abuse F10.10 [facility] [address] 83328- 6920 May, [facility] [address] 79569- 7170 May, Episode of recurrent major depressive disorder, unspecified depression episode severity F33.9 and Alcohol abuse F10.10 [facility] [address] [place] [address] Apr, Alcohol abuse F10.10 [facility] [address] [place] [address] Apr, Alcohol abuse F10.10 [facility] [id number] [place] [address] 83051- 1917 Apr, Alcohol abuse F10.10 and Episode of recurrent major depressive disorder, unspecified depression episode severity F33.9 [facility] [id number] [place] [address] 00686- 7125 Apr, [address] [address] [id number]- [address]15 Feb, Depressive disorder, not elsewhere classified F32.9 and Uncomplicated alcohol dependence F10.20 IMMUNIZATIONS No Known Immunizations SOCIAL HISTORY Never Assessed REASON FOR VISIT GROUP PLAN OF CARE VITAL SIGNS MEDICATIONS Unknown [...]
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
--- OUTSIDE RECORDS SUMMARY | 2018-01-01 12:47 | XMS REPORT ---
Author Author VERONIKA HAYNES Organization [facility] Address [address] [place] [address] Care Team Providers Care Property Management Intern Name Role Phone VERONIKA HAYNES Unavailable PROBLEMS Type Condition ICD9-CM Code OUO75-QD Code Onset Dates Condition Status SNOMED Code Problem Uncomplicated alcohol dependence F10.20 Active 99435616 Problem Episode of recurrent major depressive disorder, unspecified depression episode severity F33.9 Active 737261722 Problem Alcohol abuse F10.10 Active 04294670 ALLERGIES No Information ENCOUNTERS Encounter Location Date Diagnosis [facility] [address] [place] [address] Nov, [facility] [address] [place] [address] Nov, Uncomplicated alcohol dependence F10.20 [facility] [id number] [place] [address] 65218- 1636 Nov, [facility] [id number] [place] [address] 10276- 1503 Nov, [facility] [id number] [place] [address] 20276- 0026 October, [facility] [id number] [place] [address] 30088- 3869 October, [facility] [address] [place] [address] October, Uncomplicated alcohol dependence F10.20 [facility] [id number] [place] [address] 39352- 4990 October, [facility] [id number] [place] [address] 45211- 1332 October, [facility] [address] [place] [address] October, Uncomplicated alcohol dependence F10.20 [facility] [id number] [place] [address] 02388- 5715 October, [facility] [id number] [place] [address] 69281- 2178 October, [facility] [id number] [place] [address] 65477- 2101 October, [facility] [address] [place] [address] October, Uncomplicated alcohol dependence F10.20 [facility] [id number] [place] [address] 17702- 1750 October, [facility] [id number] [place] [address] 15137- 3849 October, [facility] [id number] [place] [address] 70949- 2210 October, [facility] [id number] [place] [address] 18708- 0154 October, [facility] [address] [place] [address] October, Uncomplicated alcohol dependence F10.20 [facility] [address] [place] [address] Sep, Uncomplicated alcohol dependence F10.20 [facility] [address] [place] [address] Sep, Uncomplicated alcohol dependence F10.20 [facility] [id number] [place] [address] [phone]- 2976 Sep, [facility] [address] [place] [address] Sep, Uncomplicated alcohol dependence F10.20 [facility] [id number] [place] [address] 05676- 7356 Sep, [facility] [address] [place] [address] Sep, Uncomplicated alcohol dependence F10.20 [facility] [id number] [place] [address] 74995- 2367 Sep, [facility] [address] [address] Sep, [facility] [address] [place] [address] Sep, Uncomplicated alcohol dependence F10.20 [facility] [id number] [place] [address] 23007- 8133 Sep, [facility] [address] 91970- 1458 Sep, [facility] [id number] [place] [address] 41508- 3968 Sep, [facility] [address] [place] [address] Sep, Uncomplicated alcohol dependence F10.20 [facility] [id number] [place] [address] 66478- 6779 Sep, [facility] [id number] [place] [address] 71568- 9055 30 Aug, 2017 [facility] [id number] [place] [address] 26817- 0818 29 Aug, 2017 [facility] [id number] [place] [address] 48444- 6298 Aug, [facility] [address] [place] [address] Aug, Uncomplicated alcohol dependence F10.20 [facility] [id number] [place] [address] 21810- 5777 Aug, [facility] [id number] [place] [address] 68285- 4639 Aug, [facility] [id number] [place] [address] 81269- 8180 Aug, [facility] [id number] [place] [address] 86222- 6301 19 Aug, 2017 [facility] [address] [place] [address] 15 Aug, 2017 Uncomplicated alcohol dependence F10.20 [facility] [id number] [place] [address] 83407- 6373 Aug, [facility] [id number] [place] [address] 64158- 4598 Aug, Uncomplicated alcohol dependence F10.20 [facility] [address] [place] [address] Aug, Uncomplicated alcohol dependence F10.20 [facility] [id number] [place] [address] 60390- 9063 Aug, [facility] [address] [place] [address] Aug, Uncomplicated alcohol dependence F10.20 [facility] [id number] [place] [address] 40213- 9804 Aug, [facility] [address] [place] [address] Aug, Uncomplicated alcohol dependence F10.20 [facility] [id number] [place] [address] 23552- 8859 Aug, [facility] [address] [place] [address] Aug, Uncomplicated alcohol dependence F10.20 [facility] [id number] [place] [address] 70860- 6563 Aug, [facility] [id number] [place] [address] 04382- 4316 Jul, [facility] [id number] [place] [address] 99783- 2635 Jul, [facility] [address] [place] [address] Jul, Uncomplicated alcohol dependence F10.20 [facility] [id number] [place] [address] 12580- 9433 Jul, [facility] [id number] [place] [address] 79034- 9103 Jul, [facility] [address] [place] [address] Jul, Uncomplicated alcohol dependence F10.20 [facility] [id number] [place] [address] 93638- 5820 Jul, [facility] [address] [place] [address] Jul, Uncomplicated alcohol dependence F10.20 [facility] [id number] [place] [address] 74352- 9600 15 Jul, 2017 [facility] [address] [place] [address] Jul, Uncomplicated alcohol dependence F10.20 [facility] [address] [place] [address] 12 Jul, 2017 Uncomplicated alcohol dependence F10.20 [facility] [address] 64885- 6434 08 Jul, 2017 [facility] [address] [place] [address] 08 Jul, 2017 Uncomplicated alcohol dependence F10.20 [facility] [address] [place] [address] 06 Jul, 2017 Uncomplicated alcohol dependence F10.20 [facility] [address] [place] [address] 05 Jul, 2017 Uncomplicated alcohol dependence F10.20 [facility] [address] [place] [address] Jun, Uncomplicated alcohol dependence F10.20 [facility] [address] [place] [address] May, Uncomplicated alcohol dependence F10.20 [facility] [id number] [place] [address] 31642- 0313 May, [facility] [address] 38920- 0260 May, Routine check-up Z00.00 [facility] [id number] [place] [address] 42272- 7613 14 May, 2017 [facility] [address] 38637- 8187 May, [facility] [id number] [place] [address] 88851 2548 29 Feb, 2016 [facility] [address] [place] [address] 29 Feb, 2016 Uncomplicated alcohol dependence F10.20 [facility] [address] [place] [address] 27 Feb, 2016 Uncomplicated alcohol dependence F10.20 [facility] [address] [address] 2546 21 Feb, 2016 [facility] [address] [place] [address] 21 Feb, 2016 Uncomplicated alcohol dependence F10.20 [facility] [address] [place] [address] 14 Feb, 2016 Uncomplicated alcohol dependence F10.20 [facility] [address] [place] [address] 12 Feb, 2016 Uncomplicated alcohol dependence F10.20 [facility] [address] 18676 2542 12 Feb, 2016 [facility] [address] [place] [address] 07 Feb, 2016 Uncomplicated alcohol dependence F10.20 [facility] [address] 12269 2546 07 Feb, 2016 [facility] [address] [place] [address] 05 Feb, 2016 Uncomplicated alcohol dependence F10.20 [facility] [id number] [place] [address] 59749 2545 05 Feb, 2016 [facility] [address] [place] [address] 30 Jan, 2017 Uncomplicated alcohol dependence F10.20 [facility] [address] [place] [address] Jan, Uncomplicated alcohol dependence F10.20 [facility] [address] [place] [address] Dec, Alcohol abuse F10.10 and Uncomplicated alcohol dependence F10.20 [facility] [address] [place] [address] Dec, Alcohol abuse F10.10 [facility] [address] [place] [address] Dec, Alcohol abuse F10.10 [facility] [address] [place] [address] Dec, Alcohol abuse F10.10 [facility] [address] [place] [address] Nov, Alcohol abuse F10.10 [facility] [id number] [place] [address] 56671- 6456 Nov, [facility] [address] [place] [address] Nov, Alcohol abuse F10.10 [facility] [address] [place] [address] Nov, Alcohol abuse F10.10 [facility] [id number] [place] [address] 62746- 1557 Nov, [facility] [id number] [place] [address] 34313- 0938 Nov, [facility] [id number] [place] [address] 38250- 3427 October, [facility] [address] [place] [address] October, Alcohol abuse F10.10 [facility] [id number] [place] [address] [phone]- 5492 October, [facility] [address] [place] [address] 6[address] October, [facility] [id number] [place] [address] 47540- 0185 October, [facility] [address] [place] [address] October, Alcohol abuse F10.10 [facility] [address] [place] [address] October, Alcohol abuse F10.10 [facility] [address] [address] Sep, Alcohol abuse F10.10 [facility] [id number] [place] [address] 7[address] Sep, [facility] [address] [place] [address] Sep, Alcohol abuse F10.10 [facility] [id number] [place] [address] 97824 2546 Sep, [facility] [address] [place] [address] Sep, Alcohol abuse F10.10 [facility] [id number] [place] [address] 26301- 6576 Sep, [facility] [id number] [place] [address] 95491- 4936 Sep, [facility] [id number] [place] [address] 72963- 3766 30 Aug, 2016 [facility] [address] [place] [address] 28 Aug, 2016 Alcohol abuse F10.10 [facility] [id number] [place] [address] 14470- 0309 23 Aug, 2016 [facility] [address] [place] [address] 21 Aug, 2016 Alcohol abuse F10.10 [facility] [id number] [place] [address] 01758- 0696 16 Aug, 2016 [facility] [address] [place] [address] 14 Aug, 2016 Alcohol abuse F10.10 [facility] [id number] [place] [address] 58571- 2540 09 Aug, 2016 [facility] [address] [place] [address] 07 Aug, 2016 Alcohol abuse F10.10 [facility] [id number] [place] [address] 39219- 7716 02 Aug, 2016 [facility] [address] [place] [address] 28 Jul, 2016 Alcohol abuse F10.10 [facility] [address] [place] [address] Jul, Alcohol abuse F10.10 [facility] [address] [address] Jul, [facility] [address] [place] [address] Jul, Alcohol abuse F10.10 [facility] [address] [place] [address] Jul, Alcohol abuse F10.10 [facility] [address] [place] [address] Jun, Alcohol abuse F10.10 [facility] [id number] [place] [address] 43805- 9690 Jun, [facility] [address] [place] [address] Jun, Alcohol abuse F10.10 [facility] [address] [place] [address] Jun, Alcohol abuse F10.10 [facility] [id number] [place] [address] 32122- 3599 May, Episode of recurrent major depressive disorder, unspecified depression episode severity F33.9 and Alcohol abuse F10.10 [facility] [address] [place] [address] May, Alcohol abuse F10.10 [facility] [id number] [place] [address] 85787- 9398 May, [facility] [id number] [place] [address] 03822- 3805 May, Episode of recurrent major depressive disorder, unspecified depression episode severity F33.9 and Alcohol abuse F10.10 [facility] [address] [place] [address] Apr, Alcohol abuse F10.10 [facility] [address] [place] [address] Apr, Alcohol abuse F10.10 [facility] [id number] [place] [address] 78439- 7289 Apr, Alcohol abuse F10.10 and Episode of recurrent major depressive disorder, unspecified depression episode severity F33.9 [facility] [address] [facility] [id number] [place] [address]3 Apr, [facility] [address] [facility] [id number] [place] [address] 3[address] Feb, Depressive disorder, not elsewhere classified F32.9 [...]
--- OUTSIDE RECORDS SUMMARY | 2018-01-01 12:47 | XMS REPORT ---
Author Author ARY BURNETT Organization [facility] Address [address] [place] [address] Care Team Providers Care Monument Installer Name Role Phone ARY BURNETT Unavailable PROBLEMS Type Condition ICD9-CM Code SUT55-JO Code Onset Dates Condition Status SNOMED Code Problem Uncomplicated alcohol dependence F10.20 Active 40360804 Problem Episode of recurrent major depressive disorder, unspecified depression episode severity F33.9 Active 242250824 Problem Alcohol abuse F10.10 Active 96984204 ALLERGIES No Information ENCOUNTERS Encounter Location Date Diagnosis [facility] [address] [place] [address] Sep, Uncomplicated alcohol dependence F10.20 [facility] [address] [place] [address] Sep, Uncomplicated alcohol dependence F10.20 [facility] [address] [place] [address] Sep, Uncomplicated alcohol dependence F10.20 [facility] [address] [address] Sep, [facility] [address] [address] Sep, [facility] [address] [place] [address] Sep, Uncomplicated alcohol dependence F10.20 [facility] [id number] [place] [address]9066- [address] Sep, [facility] [address] [address] Sep, [facility] [address] [place] [address] Sep, Uncomplicated alcohol dependence F10.20 [facility] [address] [address] Sep, [facility] [address] [address] Sep, [facility] [id number] [place] [address]197[address] 9434 Sep, [facility] [address] [place] [address] Sep, Uncomplicated alcohol dependence F10.20 [facility] [id number] [place] [address] 45636- 5963 Sep, [facility] [id number] [place] [address] 91596- 0882 30 Aug, 2017 [facility] [id number] [place] [address] 35844- 2067 29 Aug, 2017 [facility] [id number] [place] [address] 91528- 1505 Aug, [facility] [address] [place] [address] 27 Aug, 2017 Uncomplicated alcohol dependence F10.20 [facility] [id number] [place] [address] 25762- 6556 Aug, [facility] [id number] [place] [address] 29422- 0902 Aug, [facility] [id number] [place] [address] 31176- 7793 Aug, [facility] [id number] [place] [address] 24206- 8956 19 Aug, 2017 [facility] [address] [place] [address] 15 Aug, 2017 Uncomplicated alcohol dependence F10.20 [facility] [id number] [place] [address] 79210- 6449 15 Aug, 2017 [facility] [id number] [place] [address] 86823- 4399 15 Aug, 2017 Uncomplicated alcohol dependence F10.20 [facility] [address] [place] [address] Aug, Uncomplicated alcohol dependence F10.20 [facility] [id number] [place] [address] 42238- 8961 Aug, [facility] [address] [place] [address] Aug, Uncomplicated alcohol dependence F10.20 [facility] [id number] [place] [address] 38830- 8111 Aug, [facility] [address] [place] [address] Aug, Uncomplicated alcohol dependence F10.20 [facility] [id number] [place] [address] 35162- 2851 Aug, [facility] [address] [place] [address] Aug, Uncomplicated alcohol dependence F10.20 [facility] [id number] [place] [address] 57160- 2351 Aug, [facility] [address] [address] Jul, [facility] [address] [address] Jul, [facility] [address] [place] [address] Jul, Uncomplicated alcohol dependence F10.20 [facility] [id number] [place] [address] 00850- 3695 Jul, [facility] [id number] [place] [address] 84027- 0077 Jul, [facility] [address] [place] [address] Jul, Uncomplicated alcohol dependence F10.20 [facility] [id number] [place] [address] 20020- 1062 Jul, [facility] [address] [place] [address] Jul, Uncomplicated alcohol dependence F10.20 [facility] [id number] [place] [address] 52580- 7095 15 Jul, 2017 [facility] [address] [place] [address] 15 Jul, 2017 Uncomplicated alcohol dependence F10.20 [facility] [address] [place] [address] 12 Jul, 2017 Uncomplicated alcohol dependence F10.20 [facility] [address] 7[address]81- 8959 08 Jul, 2017 [facility] [address] [place] [address] 08 Jul, 2017 Uncomplicated alcohol dependence F10.20 [facility] [address] [place] [address] 06 Jul, 2017 Uncomplicated alcohol dependence F10.20 [facility] [address] [place] [address] 05 Jul, 2017 Uncomplicated alcohol dependence F10.20 [facility] [address] [place] [address] Jun, Uncomplicated alcohol dependence F10.20 [facility] [address] [place] [address] May, Uncomplicated alcohol dependence F10.20 [facility] [address] 34444- 8709 May, [facility] [id number] [place] [address] 32406- 6258 May, Routine check-up Z00.00 [facility] [address] 31706- 8100 14 May, 2017 [facility] [id number] [place] [address] 74742- 6567 13 May, 2017 [facility] [address] 10112- 6797 29 Feb, 2017 [facility] [address] [place] [address] 29 Feb, 2017 Uncomplicated alcohol dependence F10.20 [facility] [address] [place] [address] 27 Feb, 2017 Uncomplicated alcohol dependence F10.20 [facility] [address] [address] 21 Feb, 2016 [facility] [address] [place] [address] 21 Feb, 2016 Uncomplicated alcohol dependence F10.20 [facility] [address] [place] [address] 14 Feb, 2016 Uncomplicated alcohol dependence F10.20 [facility] [address] [place] [address] 12 Feb, 2016 Uncomplicated alcohol dependence F10.20 [facility] [address] [place] [address]8738 2545 12 Feb, 2016 [facility] [address] [place] [address] 07 Feb, 2016 Uncomplicated alcohol dependence F10.20 [facility] [address] [place] [address] 45967- 3954 07 Feb, 2016 [facility] [address] [place] [address] 05 Feb, 2016 Uncomplicated alcohol dependence F10.20 [facility] [id number] [place] [address] 71091 2544 05 Feb, 2016 [facility] [address] [place] [address] 30 Jan, 2017 Uncomplicated alcohol dependence F10.20 [facility] [address] [place] [address] Jan, Uncomplicated alcohol dependence F10.20 [facility] [address] [place] [address] Dec, Alcohol abuse F10.10 and Uncomplicated alcohol dependence F10.20 [facility] [address] [place] [address] Dec, Alcohol abuse F10.10 [facility] [address] [place] [address] 18 Dec, 2016 Alcohol abuse F10.10 [facility] [address] [place] [address] Dec, Alcohol abuse F10.10 [facility] [address] [place] [address] Nov, Alcohol abuse F10.10 [facility] [address] [address] Nov, [facility] [address] [place] [address] Nov, Alcohol abuse F10.10 [facility] [address] [place] [address] Nov, Alcohol abuse F10.10 [facility] [id number] [place] [address] 60913- 5852 Nov, [facility] [id number] [place] [address] 67932- 7742 Nov, [facility] [id number] [place] [address] 20472- 2570 October, [facility] [address] [place] [address] October, Alcohol abuse F10.10 [facility] [id number] [place] [address] 93206- 0553 October, [facility] [id number] [place] [address] 21669- 1141 October, [facility] [id number] [place] [address] 52313- 7747 October, [facility] [address] [place] [address] October, Alcohol abuse F10.10 [facility] [address] [place] [address] October, Alcohol abuse F10.10 [facility] [id number] [place] [address] 97204- 6332 Sep, Alcohol abuse F10.10 [facility] [id number] [place] [address] 65069- 5253 Sep, [facility] [address] [place] [address] Sep, Alcohol abuse F10.10 [facility] [address] [place] [address] 75315- 8732 Sep, [facility] [address] [place] [address] 04 Sep, 2016 Alcohol abuse F10.10 [facility] [id number] [place] [address] 47348- 1284 Sep, [facility] [id number] [place] [address] 91858- 0032 Sep, [facility] [id number] [place] [address] 58630- 0778 30 Aug, 2016 [facility] [address] [place] [address] 28 Aug, 2016 Alcohol abuse F10.10 [facility] [address] 6[address]74- 1638 Aug, [facility] [address] [place] [address] Aug, Alcohol abuse F10.10 [facility] [address] 33943- 8989 16 Aug, 2016 [facility] [address] [place] [address] 14 Aug, 2016 Alcohol abuse F10.10 [facility] [id number] [place] [address] 84940- 5131 09 Aug, 2016 [facility] [address] [place] [address] Aug, Alcohol abuse F10.10 [facility] [id number] [place] [address] 97925- 2116 Aug, [facility] [address] [place] [address] Jul, Alcohol abuse F10.10 [facility] [address] [place] [address] 24 Jul, 2016 Alcohol abuse F10.10 [facility] [id number] [place] [address] 19204- 5961 Jul, [facility] [address] [place] [address] 16 Jul, 2016 Alcohol abuse F10.10 [facility] [address] [place] [address] 07 Jul, 2016 Alcohol abuse F10.10 [facility] [address] [place] [address] Jun, Alcohol abuse F10.10 [facility] [address] [place] [address] 86732- 4466 Jun, [facility] [address] [place] [address] Jun, Alcohol abuse F10.10 [facility] [address] [place] [address] Jun, Alcohol abuse F10.10 [facility] [id number] [place] [address] 68549- 2629 May, Episode of recurrent major depressive disorder, unspecified depression episode severity F33.9 and Alcohol abuse F10.10 [facility] [address] [place] [address] May, Alcohol abuse F10.10 [facility] [id number] [place] [address] 41421- 8696 May, [facility] [id number] [place] [address] 55119- 8908 May, Episode of recurrent major depressive disorder, unspecified depression episode severity F33.9 and Alcohol abuse F10.10 [facility] [address] [place] [address] 30 Apr, 2016 Alcohol abuse F10.10 [facility] [address] [place] [address] 23 Apr, 2016 Alcohol abuse F10.10 [facility] [id number] [place] [address] 94283- 2477 17 Apr, 2016 Alcohol abuse F10.10 and Episode of recurrent major depressive disorder, unspecified depression episode severity F33.9 [facility] [id number] [place] [address] 94240- 1542 07 Apr, 2016 [facility] [id number] [place] [address] 60705- 9075 29 Feb, 2016 Depressive disorder, not elsewhere classified F32.9 and Uncomplicated alcohol dependence F10.20 IMMUNIZATIONS No Known Immunizations SOCIAL HISTORY Never Assessed REASON FOR VISIT Suba f/u PLAN OF CARE Activity Details Follow Up 2 - 3 Days Reason: VITAL SIGNS MEDICATIONS Unknown Medications RESULTS No Results PROCEDURES Procedure Date Ordered Result Body Site Alcohol and/or drug services Feb 16, 2017 INSTRUCTIONS MEDICATIONS ADMINISTERED No Known Medications MEDICAL (GENERAL) HISTORY Type Description Date Medical History broken neck Medical History Alcoholism Surgical History 2 neck surgeris 2016 Surgical History tonsillectomy Surgical History tubes put in ears Hospitalization History [facility] 2016 Hospitalization History tonsilectomy
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
--- OUTSIDE RECORDS SUMMARY | 2018-01-01 12:48 | XMS REPORT ---
Author Author ARY BURNETT Organization [facility] Address [address] [place] [address] Care Team Providers Care Obgyn Specialist Name Role Phone ARY BURNETT Unavailable PROBLEMS Type Condition ICD9-CM Code TDM89-DE Code Onset Dates Condition Status SNOMED Code Problem Uncomplicated alcohol dependence F10.20 Active 09447088 Problem Episode of recurrent major depressive disorder, unspecified depression episode severity F33.9 Active 382151400 Problem Alcohol abuse F10.10 Active [id number] ALLERGIES No Information ENCOUNTERS Encounter Location Date Diagnosis [facility] [address] [place] [address] Nov, [facility] [address] [place] [address] Nov, Uncomplicated alcohol dependence F10.20 [facility] [id number] [place] [address] 74109- 5135 Nov, [facility] [id number] [place] [address] 25595- 1089 Nov, [facility] [id number] [place] [address] 97059- 6426 October, [facility] [id number] [place] [address] 28277- 1092 October, [facility] [address] [place] [address] October, Uncomplicated alcohol dependence F10.20 [facility] [address] [address] October, [facility] [address] 71203- 2569 October, [facility] [address] [place] [address] October, Uncomplicated alcohol dependence F10.20 [facility] [id number] [place] [address] 01335- 6045 October, [facility] [id number] [place] [address] 56404- 6655 October, [facility] [id number] [place] [address] 25252- 9723 October, [facility] [address] [place] [address] October, Uncomplicated alcohol dependence F10.20 [facility] [id number] [place] [address] 80236- 0887 October, [facility] [id number] [place] [address] 82930- 1770 October, [facility] [id number] [place] [address] 87773- 5842 October, [facility] [id number] [place] [address] 28219- 8545 October, [facility] [address] [place] [address] October, Uncomplicated alcohol dependence F10.20 [facility] [address] [place] [address] Sep, Uncomplicated alcohol dependence F10.20 [facility] [address] [place] [address] Sep, Uncomplicated alcohol dependence F10.20 [facility] [id number] [place] [address] 33266- 6706 Sep, [facility] [address] [place] [address] Sep, Uncomplicated alcohol dependence F10.20 [facility] [id number] [place] [address] 39343- 6131 Sep, [facility] [address] [place] [address] Sep, Uncomplicated alcohol dependence F10.20 [facility] [id number] [place] [address] 33685- 3810 Sep, [facility] [address] [address] Sep, [facility] [address] [place] [address] Sep, Uncomplicated alcohol dependence F10.20 [facility] [id number] [place] [address] 31961- 5101 Sep, [facility] [address] 92243- 1027 Sep, [facility] [id number] [place] [address] 69507- 0162 Sep, [facility] [address] [place] [address] Sep, Uncomplicated alcohol dependence F10.20 [facility] [id number] [place] [address] 21978- 3336 Sep, [facility] [id number] [place] [address] 13212- 9721 30 Aug, 2017 [facility] [id number] [place] [address] 40417- 5793 29 Aug, 2017 [facility] [id number] [place] [address] 25887- 5980 Aug, [facility] [address] [place] [address] Aug, Uncomplicated alcohol dependence F10.20 [facility] [id number] [place] [address] 01083- 6544 Aug, [facility] [id number] [place] [address] 01561- 6563 Aug, [facility] [id number] [place] [address] 26424- 8005 Aug, [facility] [id number] [place] [address] 04496- 1589 19 Aug, 2017 [facility] [address] [place] [address] 15 Aug, 2017 Uncomplicated alcohol dependence F10.20 [facility] [id number] [place] [address] 55982- 2799 Aug, [facility] [id number] [place] [address] 85344- 7453 Aug, Uncomplicated alcohol dependence F10.20 [facility] [address] [place] [address] Aug, Uncomplicated alcohol dependence F10.20 [facility] [id number] [place] [address] 81572- 7497 Aug, [facility] [address] [place] [address] Aug, Uncomplicated alcohol dependence F10.20 [facility] [id number] [place] [address] 41500- 0210 Aug, [facility] [address] [place] [address] Aug, Uncomplicated alcohol dependence F10.20 [facility] [id number] [place] [address] 25805- 1551 Aug, [facility] [address] [place] [address] Aug, Uncomplicated alcohol dependence F10.20 [facility] [id number] [place] [address] 15373- 5195 Aug, [facility] [id number] [place] [address] 20363- 7777 Jul, [facility] [id number] [place] [address] 91416- 1750 Jul, [facility] [address] [place] [address] Jul, Uncomplicated alcohol dependence F10.20 [facility] [id number] [place] [address] 80563- 0713 Jul, [facility] [id number] [place] [address] 70485- 2176 Jul, [facility] [address] [place] [address] Jul, Uncomplicated alcohol dependence F10.20 [facility] [id number] [place] [address] 52818- 1927 Jul, [facility] [address] [place] [address] Jul, Uncomplicated alcohol dependence F10.20 [facility] [id number] [place] [address] 54249- 8756 15 Jul, 2017 [facility] [address] [place] [address] Jul, Uncomplicated alcohol dependence F10.20 [facility] [address] [place] [address] 12 Jul, 2017 Uncomplicated alcohol dependence F10.20 [facility] [address] 89343- 5676 08 Jul, 2017 [facility] [address] [place] [address] 08 Jul, 2017 Uncomplicated alcohol dependence F10.20 [facility] [address] [place] [address] 06 Jul, 2017 Uncomplicated alcohol dependence F10.20 [facility] [address] [place] [address] 05 Jul, 2017 Uncomplicated alcohol dependence F10.20 [facility] [address] [place] [address] Jun, Uncomplicated alcohol dependence F10.20 [facility] [address] [place] [address] May, Uncomplicated alcohol dependence F10.20 [facility] [id number] [place] [address] 80006- 3633 May, [facility] [address] 64837- 3094 May, Routine check-up Z00.00 [facility] [id number] [place] [address] 03127- 4773 14 May, 2017 [facility] [address] 77834- 3890 May, [facility] [id number] [place] [address] 39138 2548 29 Feb, 2016 [facility] [address] [place] [address] 29 Feb, 2016 Uncomplicated alcohol dependence F10.20 [facility] [address] [place] [address] 27 Feb, 2016 Uncomplicated alcohol dependence F10.20 [facility] [address] [address] 2546 21 Feb, 2016 [facility] [address] [place] [address] 21 Feb, 2016 Uncomplicated alcohol dependence F10.20 [facility] [address] [place] [address] 14 Feb, 2016 Uncomplicated alcohol dependence F10.20 [facility] [address] [place] [address] 12 Feb, 2016 Uncomplicated alcohol dependence F10.20 [facility] [address] [address]36 2547 12 Feb, 2016 [facility] [address] [place] [address] 07 Feb, 2016 Uncomplicated alcohol dependence F10.20 [facility] [address] [address]80 2546 07 Feb, 2016 [facility] [address] [place] [address] 05 Feb, 2016 Uncomplicated alcohol dependence F10.20 [facility] [id number] [place] [address] 44846 2543 05 Feb, 2016 [facility] [address] [place] [address] 30 Jan, 2017 Uncomplicated alcohol dependence F10.20 [facility] [address] [place] [address] Jan, Uncomplicated alcohol dependence F10.20 [facility] [address] [place] [address] Dec, Alcohol abuse F10.10 and Uncomplicated alcohol dependence F10.20 [facility] [address] [place] [address] Dec, Alcohol abuse F10.10 [facility] [address] [place] [address] Dec, Alcohol abuse F10.10 [facility] [address] [place] [address] Dec, Alcohol abuse F10.10 [facility] [address] [place] [address] Nov, Alcohol abuse F10.10 [facility] [id number] [place] [address] 26437- 3816 Nov, [facility] [address] [place] [address] Nov, Alcohol abuse F10.10 [facility] [address] [place] [address] Nov, Alcohol abuse F10.10 [facility] [id number] [place] [address] 47630- 9781 Nov, [facility] [id number] [place] [address] 51977- 2165 Nov, [facility] [id number] [place] [address] 80832- 4853 October, [facility] [address] [place] [address] October, Alcohol abuse F10.10 [facility] [id number] [place] [address] 45243- 9585 October, [facility] [address] [address]- 7[address] October, [facility] [id number] [place] [address] 12875- 9840 October, [facility] [address] [place] [address] October, Alcohol abuse F10.10 [facility] [address] [place] [address] October, Alcohol abuse F10.10 [facility] [address] [address] 7927 Sep, Alcohol abuse F10.10 [facility] [id number] [address]- 9626 Sep, [facility] [address] [place] [address] Sep, Alcohol abuse F10.10 [facility] [id number] [place] [address] 49947 2546 Sep, [facility] [address] [place] [address] Sep, Alcohol abuse F10.10 [facility] [id number] [place] [address] 98757- 3626 Sep, [facility] [id number] [place] [address] 47938- 6176 Sep, [facility] [id number] [place] [address] 13486- 8151 30 Aug, 2016 [facility] [address] [place] [address] 28 Aug, 2016 Alcohol abuse F10.10 [facility] [id number] [place] [address] 99696- 5498 23 Aug, 2016 [facility] [address] [place] [address] 21 Aug, 2016 Alcohol abuse F10.10 [facility] [id number] [place] [address] 65863- 5836 16 Aug, 2016 [facility] [address] [place] [address] 14 Aug, 2016 Alcohol abuse F10.10 [facility] [id number] [place] [address] 46078- 2544 09 Aug, 2016 [facility] [address] [place] [address] 07 Aug, 2016 Alcohol abuse F10.10 [facility] [id number] [place] [address] 51279- 7816 02 Aug, 2016 [facility] [address] [place] [address] 28 Jul, 2016 Alcohol abuse F10.10 [facility] [address] [place] [address] Jul, Alcohol abuse F10.10 [facility] [id number] [address] 9979 Jul, [facility] [address] [place] [address] Jul, Alcohol abuse F10.10 [facility] [address] [place] [address] Jul, Alcohol abuse F10.10 [facility] [address] [place] [address] Jun, Alcohol abuse F10.10 [facility] [id number] [place] [address] 87592- 2780 Jun, [facility] [address] [place] [address] Jun, Alcohol abuse F10.10 [facility] [address] [place] [address] Jun, Alcohol abuse F10.10 [facility] [id number] [place] [address] 18456- 2588 May, Episode of recurrent major depressive disorder, unspecified depression episode severity F33.9 and Alcohol abuse F10.10 [facility] [address] [place] [address] May, Alcohol abuse F10.10 [facility] [id number] [place] [address] 29853- 6296 May, [facility] [id number] [place] [address] 64681- 7046 May, Episode of recurrent major depressive disorder, unspecified depression episode severity F33.9 and Alcohol abuse F10.10 [facility] [address] [place] [address] Apr, Alcohol abuse F10.10 [facility] [address] [place] [address] Apr, Alcohol abuse F10.10 [facility] [id number] [place] [address] 23695- 6561 Apr, Alcohol abuse F10.10 and Episode of recurrent major depressive disorder, unspecified depression episode severity F33.9 [facility] [address] [facility] [id number] [place] [address]32 Apr, [facility] [address] [facility] [id number] [place] [address] 4[address] Feb, Depressive disorder, not elsewhere classified F32.9 and Uncomplicated alcohol dependence F10.20 IMMUNIZATIONS No Known Immunizations SOCIAL HISTORY Never Assessed REASON FOR VISIT [facility] ASSESSMENT PLAN OF CARE Activity Details Follow Up 2 - 3 Days Reason: VITAL SIGNS MEDICATIONS Unknown Medications RESULTS No Results PROCEDURES Procedure Date Ordered Result Body Site ALCOHOL AND/OR DRUG ASSESSMENT Jul 13, 2017 INSTRUCTIONS MEDICATIONS ADMINISTERED No Known Medications MEDICAL (GENERAL) HISTORY Type Description Date Medical History broken neck Medical History Alcoholism Surgical History 2 neck surgeris 2016 Surgical History tonsillectomy Surgical History tubes put in ears Hospitalization History 2016 Hospitalization History tonsilectomy
--- OUTSIDE RECORDS SUMMARY | 2018-01-01 12:48 | XMS REPORT ---
Author Author VERONIKA HAYNES [facility] Address [address] [place] [address] Care Team Providers Care Buckle Frame Shaper Name Role Phone VERONIKA HAYNES Unavailable PROBLEMS Type Condition ICD9-CM Code JEU69-EL Code Onset Dates Condition Status SNOMED Code Problem Uncomplicated alcohol dependence F10.20 Active 18306822 Problem Episode of recurrent major depressive disorder, unspecified depression episode severity F33.9 Active 820585690 Problem Alcohol abuse F10.10 Active 04363251 ALLERGIES No Known Allergies ENCOUNTERS Encounter Location Date Diagnosis [facility] [place] [id number] [place] [address] 84134- 5478 October, [facility] [place] [id number] [place] [address] 90317- 6395 October, [facility] [address] [place] [address] October, Uncomplicated alcohol dependence F10.20 [facility] [place] [id number] [place] [address] 37894- 8011 October, [facility] [place] [id number] [place] [address] 09185- 1767 October, [facility] [address] [place] [address] October, Uncomplicated alcohol dependence F10.20 [facility] [place] [id number] [place] [address] 32151- 0930 October, [facility] [place] [id number] [place] [address] 88101- 2586 October, [facility] [place] [id number] [place] [address] 92640- 1745 October, [facility] [address] [place] [address] October, Uncomplicated alcohol dependence F10.20 [facility] [place] [address] [address] October, [facility] [place] [id number] [place] [address] 35161- 0619 October, [facility] [place] [id number] [place] [address] 98151- 8155 October, [facility] [place] [id number] [place] [address] 16423- 0619 October, [facility] [address] [place] [address] October, Uncomplicated alcohol dependence F10.20 [facility] [address] [place] [address] Sep, Uncomplicated alcohol dependence F10.20 [facility] [address] [place] [address] Sep, Uncomplicated alcohol dependence F10.20 [facility] [place] [id number] [place] [address] 90849- 7232 Sep, [facility] [address] [place] [address] Sep, Uncomplicated alcohol dependence F10.20 [facility] [place] [id number] [place] [address] 59875- 8969 Sep, [facility] [address] [place] [address] Sep, Uncomplicated alcohol dependence F10.20 [facility] [place] [id number] [place] [address] 19700- 3789 Sep, [facility] [place] [id number] [place] [address] 09636- 8228 Sep, [facility] [address] [place] [address] Sep, Uncomplicated alcohol dependence F10.20 [facility] [place] [id number] [place] [address] 04985- 7231 Sep, [facility] [place] [id number] [place] [address] 52812- 7528 Sep, [facility] [address] [address] 99[address] Sep, [facility] [address] [place] [address] Sep, Uncomplicated alcohol dependence F10.20 [facility] [place] [id number] [place] [address] 00362- 9135 Sep, [facility] [place] [id number] [place] [address] 54419- 3182 30 Aug, 2017 [facility] [place] [id number] [place] [address] 09160- 1545 29 Aug, 2017 [facility] [place] [id number] [place] [address] 80259- 2460 27 Aug, 2017 [facility] [address] [place] [address] 27 Aug, 2017 Uncomplicated alcohol dependence F10.20 [facility] [place] [id number] [place] [address] 09097- 3962 22 Aug, 2017 [facility] [place] [id number] [place] [address] 67473- 8702 22 Aug, 2017 [facility] [place] [id number] [place] [address] 91447- 0496 20 Aug, 2017 [facility] [place] [id number] [place] [address] 25502- 5713 19 Aug, 2017 [facility] [address] [place] [address] 15 Aug, 2017 Uncomplicated alcohol dependence F10.20 [facility] [place] [address] [address] 3564 15 Aug, 2017 [facility] [place] [id number] [place] [address] 91549- 1816 15 Aug, 2017 Uncomplicated alcohol dependence F10.20 [facility] [address] [place] [address] 13 Aug, 2017 Uncomplicated alcohol dependence F10.20 [facility] [place] [id number] [place] [address] 59240- 6573 Aug, [facility] [address] [place] [address] Aug, Uncomplicated alcohol dependence F10.20 [facility] [place] [id number] [place] [address] 42088 2546 Aug, [facility] [address] [place] [address] Aug, Uncomplicated alcohol dependence F10.20 [facility] [place] [id number] [place] [address] 63022 2547 Aug, [facility] [address] [place] [address] Aug, Uncomplicated alcohol dependence F10.20 [facility] [place] [id number] [place] [address] 00769- 7474 Aug, [facility] [place] [id number] [place] [address] 31196- 1700 Jul, [facility] [place] [id number] [place] [address] 32025- 1873 Jul, [facility] [address] [place] [address] Jul, Uncomplicated alcohol dependence F10.20 [facility] [place] [id number] [place] [address] 46774- 7898 Jul, [facility] [place] [id number] [place] [address] 03719- 0153 Jul, [facility] [address] [place] [address] Jul, Uncomplicated alcohol dependence F10.20 [facility] [place] [id number] [place] [address] 25914- 4014 Jul, [facility] [address] [place] [address] Jul, Uncomplicated alcohol dependence F10.20 [facility] [place] [id number] [place] [address] 36661- 1290 Jul, [facility] [address] [place] [address] 15 Jul, 2017 Uncomplicated alcohol dependence F10.20 [facility] [address] [place] [address] 12 Jul, 2017 Uncomplicated alcohol dependence F10.20 [facility] [place] [id number] [place] [address] 76016- 1943 08 Jul, 2017 [facility] [address] [place] [address] 08 Jul, 2017 Uncomplicated alcohol dependence F10.20 [facility] [address] [place] [address] 06 Jul, 2017 Uncomplicated alcohol dependence F10.20 [facility] [address] [place] [address] 05 Jul, 2017 Uncomplicated alcohol dependence F10.20 [facility] [address] [place] [address] Jun, Uncomplicated alcohol dependence F10.20 [facility] [address] [place] [address] May, Uncomplicated alcohol dependence F10.20 [facility] [place] [address] 32134- 4149 May, [facility] [place] [address] 03620- 0413 May, Routine check-up Z00.00 [facility] [place] [address] 87219- 7762 14 May, 2017 [facility] [place] [address] 74873- 6433 May, [facility] [place] [id number] [place] [address] 05555- 7985 Feb, [facility] [address] [place] [address] 29 Feb, 2017 Uncomplicated alcohol dependence F10.20 [facility] [address] [place] [address] 27 Feb, 2017 Uncomplicated alcohol dependence F10.20 [facility] [place] [address] 85230- 1201 21 Feb, 2016 [facility] [address] [place] [address] 21 Feb, 2016 Uncomplicated alcohol dependence F10.20 [facility] [address] [place] [address] 14 Feb, 2016 Uncomplicated alcohol dependence F10.20 [facility] [address] [place] [address] 12 Feb, 2016 Uncomplicated alcohol dependence F10.[address] [facility] [facility] [id number] [place] [address] 29875- 1657 12 Feb, 2016 [facility] [address] [place] [address] 07 Feb, 2016 Uncomplicated alcohol dependence F10.[address] [facility] [address] 84923- 1704 07 Feb, 2016 [facility] [address] [place] [address] 05 Feb, 2016 Uncomplicated alcohol dependence F10.[address] [facility] [id number] [place] [address] 60362- 9152 05 Feb, 2016 [facility] [address] [place] [address] 30 Jan, 2017 Uncomplicated alcohol dependence F10.20 [facility] [address] [place] [address] Jan, Uncomplicated alcohol dependence F10.20 [facility] [address] [place] [address] Dec, Alcohol abuse F10.10 and Uncomplicated alcohol dependence F10.20 [facility] [address] [place] [address] Dec, Alcohol abuse F10.10 [facility] [address] [place] [address] 18 Dec, 2016 Alcohol abuse F10.10 [facility] [address] [place] [address] Dec, Alcohol abuse F10.10 [facility] [address] [place] [address] Nov, Alcohol abuse F10.[address] [facility] [id number] [place] [address] 55389- 4243 Nov, [facility] [address] [place] [address] Nov, Alcohol abuse F10.10 [facility] [address] [place] [address] Nov, Alcohol abuse F10.10 [facility] [place] [address] [address] 3688 Nov, [facility] [place] [address] [place] [address] 27156- 2574 Nov, [facility] [id number] [place] [address] 97877- 1243 October, [facility] [address] [place] [address] October, Alcohol abuse F10.10 [facility] [place] [address] [place] [address] 91912- 7487 October, [facility] [place] [id number] [place] [address] 00128- 3131 October, [facility] [place] [address] [place] [address] 63807- 2761 October, [facility] [address] [place] [address] October, Alcohol abuse F10.10 [facility] [address] [place] [address] October, Alcohol abuse F10.10 [facility] [place] [address] [place] [address] 72254- 6347 Sep, Alcohol abuse F10.10 [facility] [place] [address] [place] [address] 62828- 3762 Sep, [facility] [address] [place] [address] Sep, Alcohol abuse F10.10 [facility] [place] [address] [place] [address] 04117- 8701 Sep, [facility] [address] [place] [address] Sep, Alcohol abuse F10.10 [facility] [place] [address] [address]- 8775 04 Sep, [address] [facility] [address] [place] [address] 89954- 6036 03 Sep, [address] [facility] [id number] [place] [address] 93611- 5926 30 Aug, 2016 [facility] [address] [place] [address] 28 Aug, 2016 Alcohol abuse F10.10 [facility] [place] [id number] [place] [address] 59588- 8892 23 Aug, 2016 [facility] [address] [place] [address] 21 Aug, 2016 Alcohol abuse F10.10 [facility] [place] [id number] [place] [address] 81372- 7640 16 Aug, 2016 [facility] [address] [place] [address] 14 Aug, 2016 Alcohol abuse F10.10 [facility] [place] [id number] [place] [address] 69841- 6859 09 Aug, 2016 [facility] [address] [place] [address] 07 Aug, 2016 Alcohol abuse F10.10 [facility] [place] [id number] [place] [address] 11083- 2230 02 Aug, 2016 [facility] [address] [place] [address] 28 Jul, 2016 Alcohol abuse F10.10 [facility] [address] [place] [address] 24 Jul, 2016 Alcohol abuse F10.10 [facility] [address] [place] [address] 08617- 7907 23 Jul, 2016 [facility] [address] [place] [address] 16 Jul, 2016 Alcohol abuse F10.10 [facility] [address] [place] [address] 07 Jul, 2016 Alcohol abuse F10.10 [facility] [address] [place] [address] Jun, Alcohol abuse F10.10 [facility] [place] [id number] [place] [address] 76858- 0986 Jun, [facility] [address] [place] [address] Jun, Alcohol abuse F10.10 [facility] [address] [place] [address] Jun, Alcohol abuse F10.10 [facility] [place] [address] 45253- 5045 May, Episode of recurrent major depressive disorder, unspecified depression episode severity F33.9 and Alcohol abuse F10.10 [facility] [address] [place] [address] May, Alcohol abuse F10.10 [facility] [place] [address] 28270- 7852 May, [facility] [place] [address] 96546- 0900 May, Episode of recurrent major depressive disorder, unspecified depression episode severity F33.9 and Alcohol abuse F10.10 [facility] [address] [place] [address] Apr, Alcohol abuse F10.10 [facility] [address] [place] [address] Apr, Alcohol abuse F10.10 [facility] [place] [id number] [place] [address] 67714- 2749 Apr, Alcohol abuse F10.10 and Episode of recurrent major depressive disorder, unspecified depression episode severity F33.9 [facility] [place] [id number] [place] [address] 44745- 9805 Apr, [facility] [place] [address] 40163- 3959 Feb, Depressive disorder, not elsewhere classified F32.9 and Uncomplicated alcohol dependence F10.20 IMMUNIZATIONS No Known Immunizations SOCIAL HISTORY Never Assessed REASON FOR VISIT Establish Care, PT had surgery and has swelling around his neck-[place] PLAN OF CARE Activity Details Follow Up prn Reason: VITAL SIGNS Height 71 in 2017-05-21 Weight 167.8 lbs 2017-05-21 Temperature 97.9 degrees Fahrenheit 2017-05-21 Heart Rate 68 bpm 2017-05-21 Respiratory Rate 18 2017-05-21 BMI 23.40 kg/m2 2017-05-21 Blood pressure systolic 108 mmHg 2017-05-21 Blood pressure diastolic 72 mmHg 2017-05-21 MEDICATIONS Medication Instructions Dosage Frequency Start Date End Date Duration Status Percocet 5-325 MG Orally every 6 hrs 1 tablet as needed 6h Active Baclofen 10 MG Orally Three times a day 1 tablet with food or milk 8h Active RESULTS No Results PROCEDURES No Known procedures INSTRUCTIONS MEDICATIONS ADMINISTERED No Known Medications MEDICAL (GENERAL) HISTORY Type Description Date Medical History broken neck [facility] Medical History Alcoholism Surgical History 2 neck surgeris 2016 Surgical History tonsillectomy Surgical History tubes put in ears Hospitalization History [facility] 2016 Hospitalization History tonsilectomy
--- OUTSIDE RECORDS SUMMARY | 2018-01-01 12:49 | XMS REPORT ---
Author Author ARY BURNETT Organization [facility] Address [address] [place] [address] Care Team Providers Care Clinical Research Nurse Name Role Phone ARY BURNETT Unavailable PROBLEMS Type Condition ICD9-CM Code [id number] Code Onset Dates Condition Status SNOMED Code Problem Uncomplicated alcohol dependence F10.20 Active 26619414 Problem Episode of recurrent major depressive disorder, unspecified depression episode severity F33.9 Active 872995088 Problem Alcohol abuse F10.10 Active 24594226 ALLERGIES No Information ENCOUNTERS Encounter Location Date Diagnosis [facility] [address] [place] [address] Sep, Uncomplicated alcohol dependence F10.20 [facility] [address] [place] [address] Sep, Uncomplicated alcohol dependence F10.20 [facility] [id number] [place] [address] 14040- 7265 Sep, [facility] [address] [place] [address] Sep, Uncomplicated alcohol dependence F10.20 [facility] [id number] [place] [address] 31455- 5870 Sep, [facility] [address] [place] [address] Sep, Uncomplicated alcohol dependence F10.20 [facility] [id number] [place] [address] 24182- 3082 Sep, [facility] [address] [address] Sep, [facility] [address] [place] [address] Sep, Uncomplicated alcohol dependence F10.20 [facility] [address] [address] Sep, [facility] [address] [address] Sep, [facility] [id number] [place] [address] 53773- 2635 Sep, [facility] [address] [place] [address] Sep, Uncomplicated alcohol dependence F10.20 [facility] [id number] [place] [address] 14842- 8272 Sep, [facility] [id number] [place] [address] 66368- 1002 30 Aug, 2017 [facility] [id number] [place] [address] 14721- 7417 29 Aug, 2017 [facility] [id number] [place] [address] 78375- 3440 Aug, [facility] [address] [place] [address] 27 Aug, 2017 Uncomplicated alcohol dependence F10.20 [facility] [id number] [place] [address] 93960- 0423 Aug, [facility] [id number] [place] [address] 64369- 4813 Aug, [facility] [id number] [place] [address] 66195- 5228 Aug, [facility] [id number] [place] [address] 52504- 6179 19 Aug, 2017 [facility] [address] [place] [address] 15 Aug, 2017 Uncomplicated alcohol dependence F10.20 [facility] [id number] [place] [address] 47244- 9321 15 Aug, 2017 [facility] [id number] [place] [address] 06055- 8779 15 Aug, 2017 Uncomplicated alcohol dependence F10.20 [facility] [address] [place] [address] Aug, Uncomplicated alcohol dependence F10.20 [facility] [id number] [place] [address] 77553- 6380 Aug, [facility] [address] [place] [address] Aug, Uncomplicated alcohol dependence F10.20 [facility] [id number] [place] [address] 75413- 8830 Aug, [facility] [address] [place] [address] Aug, Uncomplicated alcohol dependence F10.20 [facility] [id number] [place] [address] 40422- 2987 Aug, [facility] [address] [place] [address] Aug, Uncomplicated alcohol dependence F10.20 [facility] [id number] [place] [address] 87889- 4227 Aug, [facility] [address] 78720- 5412 Jul, [facility] [address] 53140- 1639 Jul, [facility] [address] [place] [address] Jul, Uncomplicated alcohol dependence F10.20 [facility] [id number] [place] [address] 35220- 9227 Jul, [facility] [id number] [place] [address] 81133- 4056 Jul, [facility] [address] [place] [address] Jul, Uncomplicated alcohol dependence F10.20 [facility] [id number] [place] [address] 59932- 6450 Jul, [facility] [address] [place] [address] Jul, Uncomplicated alcohol dependence F10.20 [facility] [id number] [place] [address] 76492- 2217 15 Jul, 2017 [facility] [address] [place] [address] 15 Jul, 2017 Uncomplicated alcohol dependence F10.20 [facility] [address] [place] [address] 12 Jul, 2017 Uncomplicated alcohol dependence F10.20 [facility] [address] 15065- 8321 08 Jul, 2017 [facility] [address] [place] [address] 08 Jul, 2017 Uncomplicated alcohol dependence F10.20 [facility] [address] [place] [address] 06 Jul, 2017 Uncomplicated alcohol dependence F10.20 [facility] [address] [place] [address] 05 Jul, 2017 Uncomplicated alcohol dependence F10.20 [facility] [address] [place] [address] Jun, Uncomplicated alcohol dependence F10.20 [facility] [address] [place] [address] May, Uncomplicated alcohol dependence F10.20 [facility] [address] 10975- 2574 May, [facility] [id number] [place] [address] 57012- 0465 May, Routine check-up Z00.00 [facility] [address] 57792- 8875 14 May, 2017 [facility] [id number] [place] [address] 25703- 8019 13 May, 2017 [facility] [address] 51627- 2181 29 Feb, 2017 [facility] [address] [place] [address] 29 Feb, 2017 Uncomplicated alcohol dependence F10.20 [facility] [address] [place] [address] 27 Feb, 2017 Uncomplicated alcohol dependence F10.20 [facility] [address] [address] 21 Feb, 2016 [facility] [address] [place] [address] 21 Feb, 2016 Uncomplicated alcohol dependence F10.20 [facility] [address] [place] [address] 14 Feb, 2016 Uncomplicated alcohol dependence F10.20 [facility] [address] [place] [address] 12 Feb, 2016 Uncomplicated alcohol dependence F10.20 [facility] [id number] [place] [address] 20939 2549 12 Feb, 2016 [facility] [address] [place] [address] 07 Feb, 2016 Uncomplicated alcohol dependence F10.20 [facility] [id number] [place] [address] 78762- 6414 07 Feb, 2016 [facility] [address] [place] [address] 05 Feb, 2016 Uncomplicated alcohol dependence F10.20 [facility] [id number] [place] [address] 30446 2540 05 Feb, 2016 [facility] [address] [place] [address] 30 Jan, 2017 Uncomplicated alcohol dependence F10.20 [facility] [address] [place] [address] Jan, Uncomplicated alcohol dependence F10.20 [facility] [address] [place] [address] Dec, Alcohol abuse F10.10 and Uncomplicated alcohol dependence F10.20 [facility] [address] [place] [address] Dec, Alcohol abuse F10.10 [facility] [address] [place] [address] 18 Dec, 2016 Alcohol abuse F10.10 [facility] [address] [place] [address] Dec, Alcohol abuse F10.10 [facility] [address] [place] [address] Nov, Alcohol abuse F10.10 [facility] [address] [address] 7[address] Nov, [facility] [address] [place] [address] Nov, Alcohol abuse F10.10 [facility] [address] [place] [address] Nov, Alcohol abuse F10.10 [facility] [id number] [place] [address] 30632- 8246 Nov, [facility] [id number] [place] [address] 99560- 5537 Nov, [facility] [id number] [place] [address] 89900- 2506 October, [facility] [address] [place] [address] October, Alcohol abuse F10.10 [facility] [id number] [place] [address] 83560- 0655 October, [facility] [id number] [place] [address] 98689- 2892 October, [facility] [id number] [place] [address] 01561- 2255 October, [facility] [address] [place] [address] October, Alcohol abuse F10.10 [facility] [address] [place] [address] October, Alcohol abuse F10.10 [facility] [id number] [place] [address] 31927- 7996 Sep, Alcohol abuse F10.10 [facility] [id number] [place] [address] 59519- 0549 Sep, [facility] [address] [place] [address] Sep, Alcohol abuse F10.10 [facility] [id number] [place] [address] 75809- 6869 Sep, [facility] [address] [place] [address] 04 Sep, 2016 Alcohol abuse F10.10 [facility] [id number] [place] [address] 74245- 0779 Sep, [facility] [id number] [place] [address] 55848- 6765 Sep, [facility] [id number] [place] [address] 66784- 9615 30 Aug, 2016 [facility] [address] [place] [address] 28 Aug, 2016 Alcohol abuse F10.10 [facility] [address] 48239- 9512 Aug, [facility] [address] [place] [address] Aug, Alcohol abuse F10.10 [facility] [address] 03019- 0378 16 Aug, 2016 [facility] [address] [place] [address] 14 Aug, 2016 Alcohol abuse F10.10 [facility] [id number] [place] [address] 00922- 1344 09 Aug, 2016 [facility] [address] [place] [address] Aug, Alcohol abuse F10.10 [facility] [id number] [place] [address] 23015- 3872 Aug, [facility] [address] [place] [address] Jul, Alcohol abuse F10.10 [facility] [address] [place] [address] 24 Jul, 2016 Alcohol abuse F10.10 [facility] [id number] [place] [address] 16688- 3053 Jul, [facility] [address] [place] [address] 16 Jul, 2016 Alcohol abuse F10.10 [facility] [address] [place] [address] 07 Jul, 2016 Alcohol abuse F10.10 [facility] [address] [place] [address] Jun, Alcohol abuse F10.10 [facility] [id number] [place] [address] 99599- 1806 Jun, [facility] [address] [place] [address] Jun, Alcohol abuse F10.10 [facility] [address] [place] [address] Jun, Alcohol abuse F10.10 [facility] [id number] [place] [address] 78540- 4657 May, Episode of recurrent major depressive disorder, unspecified depression episode severity F33.9 and Alcohol abuse F10.10 [facility] [address] [place] [address] May, Alcohol abuse F10.10 [facility] [id number] [place] [address] 59126- 7092 May, [facility] [id number] [place] [address] 53555- 9977 May, Episode of recurrent major depressive disorder, unspecified depression episode severity F33.9 and Alcohol abuse F10.10 [facility] [address] [place] [address] 30 Apr, 2016 Alcohol abuse F10.10 [facility] [address] [place] [address] 23 Apr, 2016 Alcohol abuse F10.10 [facility] [id number] [place] [address] 11761- 6954 17 Apr, 2016 Alcohol abuse F10.10 and Episode of recurrent major depressive disorder, unspecified depression episode severity F33.9 [facility] [id number] [place] [address] 33465- 1957 07 Apr, 2016 [facility] [id number] [place] [address] 70158- 6857 29 Feb, 2016 Depressive disorder, not elsewhere classified F32.9 and Uncomplicated alcohol dependence F10.20 IMMUNIZATIONS No Known Immunizations SOCIAL HISTORY Never Assessed REASON FOR VISIT Group PLAN OF CARE VITAL SIGNS MEDICATIONS Unknown [...]
--- OUTSIDE RECORDS SUMMARY | 2018-01-01 12:49 | XMS REPORT ---
Author Author ARY BURNETT Organization [facility] Address [address] [place] [address] Care Team Providers Care Supervisor Knitting Name Role Phone ARY BURNETT Unavailable PROBLEMS Type Condition ICD9-CM Code NYV05-WX Code Onset Dates Condition Status SNOMED Code Problem Uncomplicated alcohol dependence F10.20 Active 54457347 Problem Episode of recurrent major depressive disorder, unspecified depression episode severity F33.9 Active 068775005 Problem Alcohol abuse F10.10 Active 95647699 ALLERGIES No Information ENCOUNTERS Encounter Location Date Diagnosis [facility] [address] [place] [address] Sep, Uncomplicated alcohol dependence F10.20 [facility] [address] [place] [address] Sep, Uncomplicated alcohol dependence F10.20 [facility] [address] [place] [address] Sep, Uncomplicated alcohol dependence F10.20 [facility] [address] [address] Sep, [facility] [address] [address] Sep, [facility] [address] [place] [address] Sep, Uncomplicated alcohol dependence F10.20 [facility] [id number] [place] [address] Sep, [facility] [address] [address] Sep, [facility] [address] [place] [address] Sep, Uncomplicated alcohol dependence F10.20 [facility] [address] [address] Sep, [facility] [address] [address] Sep, [facility] [id number] [place] [address] Sep, [facility] [address] [place] [address] Sep, Uncomplicated alcohol dependence F10.20 [facility] [id number] [place] [address] 1589 Sep, [facility] [id number] [place] [address] 14170- 1293 30 Aug, 2017 [facility] [id number] [place] [address] 83655- 5[address] 29 Aug, 2017 [facility] [id number] [place] [address]- 5[address] Aug, [facility] [address] [place] [address] 27 Aug, 2017 Uncomplicated alcohol dependence F10.20 [facility] [id number] [place] [address] 80529[address] Aug, [facility] [id number] [place] [address] 63687- 6037 Aug, [facility] [id number] [place] [address] 89675- 1065 Aug, [facility] [id number] [place] [address] 16606- 0[address] 19 Aug, 2017 [facility] [address] [place] [address] 15 Aug, 2017 Uncomplicated alcohol dependence F10.20 [facility] [id number] [place] [address] 01358- 1316 15 Aug, 2017 [facility] [address] [place] [address] 18800- 7499 15 Aug, 2017 Uncomplicated alcohol dependence F10.20 [facility] [address] [place] [address] Aug, Uncomplicated alcohol dependence F10.20 [facility] [id number] [place] [address] 81376- 3[address] Aug, [facility] [address] [place] [address] Aug, Uncomplicated alcohol dependence F10.20 [facility] [id number] [place] [address] 76578- 0637 Aug, [facility] [address] [place] [address] Aug, Uncomplicated alcohol dependence F10.20 [facility] [id number] [place] [address] 30604[address] 4[address] Aug, [facility] [address] [place] [address] Aug, Uncomplicated alcohol dependence F10.20 [facility] [id number] [place] [address]96- 7553 Aug, [facility] [address] [address] Jul, [facility] [address] [address] Jul, [facility] [address] [place] [address] Jul, Uncomplicated alcohol dependence F10.20 [facility] [id number] [place] [address] 60265- 9480 Jul, [facility] [id number] [place] [address] 63497- 3944 Jul, [facility] [address] [place] [address] Jul, Uncomplicated alcohol dependence F10.20 [facility] [id number] [place] [address] 47240- 7978 Jul, [facility] [address] [place] [address] Jul, Uncomplicated alcohol dependence F10.20 [facility] [id number] [place] [address] 00662- 6208 15 Jul, 2017 [facility] [address] [place] [address] 15 Jul, 2017 Uncomplicated alcohol dependence F10.20 [facility] [address] [place] [address] 12 Jul, 2017 Uncomplicated alcohol dependence F10.20 [facility] [address] [address] 08 Jul, 2017 [facility] [address] [place] [address] 08 Jul, 2017 Uncomplicated alcohol dependence F10.20 [facility] [address] [place] [address] 06 Jul, 2017 Uncomplicated alcohol dependence F10.20 [facility] [address] [place] [address] 05 Jul, 2017 Uncomplicated alcohol dependence F10.20 [facility] [address] [place] [address] Jun, Uncomplicated alcohol dependence F10.20 [facility] [address] [place] [address] May, Uncomplicated alcohol dependence F10.20 [facility] [address] [address] May, [facility] [id number] [place] [address] 02738[address] 3742 May, Routine check-up Z00.00 [facility] [address] [address] 14 May, 2017 [facility] [id number] [place] [address] 07934- 5875 13 May, 2017 [facility] [address] [address] 29 Feb, 2017 [facility] [address] [place] [address] 29 Feb, 2017 Uncomplicated alcohol dependence F10.20 [facility] [address] [place] [address] 27 Feb, 2017 Uncomplicated alcohol dependence F10.20 [facility] [place] [address] [address] 21 Feb, 2016 [facility] [address] [place] [address] 21 Feb, 2016 Uncomplicated alcohol dependence F10.20 [facility] [address] [place] [address] 14 Feb, 2016 Uncomplicated alcohol dependence F10.20 [facility] [address] [place] [address] 12 Feb, 2016 Uncomplicated alcohol dependence F10.20 [facility] [place] [address] [place] [address] 254 12 Feb, 2016 [facility] [address] [place] [address] 07 Feb, 2016 Uncomplicated alcohol dependence F10.20 [facility] [address] [place] [address] 04965- 5885 07 Feb, 2016 [facility] [address] [place] [address] 05 Feb, 2016 Uncomplicated alcohol dependence F10.20 [facility] [place] [address] [place] [address] 36770 2540 05 Feb, 2016 [facility] [address] [place] [address] 30 Jan, 2017 Uncomplicated alcohol dependence F10.20 [facility] [address] [place] [address] Jan, Uncomplicated alcohol dependence F10.20 [facility] [address] [place] [address] Dec, Alcohol abuse F10.10 and Uncomplicated alcohol dependence F10.20 [facility] [address] [place] [address] Dec, Alcohol abuse F10.10 [facility] [address] [place] [address] 18 Dec, 2016 Alcohol abuse F10.10 [facility] [address] [place] [address] Dec, Alcohol abuse F10.10 [facility] [address] [place] [address] Nov, Alcohol abuse F10.10 [facility] [address] [address] Nov, [facility] [address] [place] [address] Nov, Alcohol abuse F10.10 [facility] [address] [place] [address] Nov, Alcohol abuse F10.10 [facility] [id number] [place] [address] 51005- 7669 Nov, [facility] [id number] [place] [address] 71398- 5671 Nov, [facility] [id number] [place] [address] 32310- 1282 October, [facility] [address] [place] [address] October, Alcohol abuse F10.10 [facility] [id number] [place] [address] 48295- 2428 October, [facility] [id number] [place] [address] 97442- 6578 October, [facility] [id number] [place] [address] 48439- [address] October, [facility] [address] [place] [address] October, Alcohol abuse F10.10 [facility] [address] [place] [address] October, Alcohol abuse F10.10 [facility] [id number] [place] [address] 88626- 1488 Sep, Alcohol abuse F10.10 [facility] [id number] [place] [address] 24567- 7842 Sep, [facility] [address] [place] [address] Sep, Alcohol abuse F10.10 [facility] [address] [place] [address] 17171- 5371 Sep, [facility] [address] [place] [address] 04 Sep, 2016 Alcohol abuse F10.10 [facility] [place] [id number] [place] [address] [phone]- 0737 Sep, [facility] [place] [id number] [place] [address] 03958- 1237 Sep, [facility] [place] [id number] [place] [address] 34813- 5068 30 Aug, 2016 [facility] [address] [place] [address] 28 Aug, 2016 Alcohol abuse F10.10 [facility] [place] [address] [address] Aug, [facility] [address] [place] [address] Aug, Alcohol abuse F10.10 [facility] [address] [address] 16 Aug, 2016 [facility] [address] [place] [address] 14 Aug, 2016 Alcohol abuse F10.10 [facility] [id number] [place] [address] 34659- 8496 09 Aug, 2016 [facility] [address] [place] [address] Aug, Alcohol abuse F10.10 [facility] [place] [id number] [place] [address] 92430- 1297 Aug, [facility] [address] [place] [address] Jul, Alcohol abuse F10.10 [facility] [address] [place] [address] 24 Jul, 2016 Alcohol abuse F10.10 [facility] [place] [id number] [place] [address] 74398- 8657 Jul, [facility] [address] [place] [address] 16 Jul, 2016 Alcohol abuse F10.10 [facility] [address] [place] [address] 07 Jul, 2016 Alcohol abuse F10.10 [facility] [address] [place] [address] Jun, Alcohol abuse F10.10 [facility] [address] [place] [address] 94063- 9466 Jun, [facility] [address] [place] [address] Jun, Alcohol abuse F10.10 [facility] [address] [place] [address] Jun, Alcohol abuse F10.10 [facility] [id number] [place] [address] 37764- 5126 May, Episode of recurrent major depressive disorder, unspecified depression episode severity F33.9 and Alcohol abuse F10.10 [facility] [address] [place] [address] May, Alcohol abuse F10.10 [facility] [id number] [place] [address] 55767- 1873 May, [facility] [id number] [place] [address] 87427- 1941 May, Episode of recurrent major depressive disorder, unspecified depression episode severity F33.9 and Alcohol abuse F10.10 [facility] [address] [place] [address] 30 Apr, 2016 Alcohol abuse F10.10 [facility] [address] [place] [address] 23 Apr, 2016 Alcohol abuse F10.10 [facility] [id number] [place] [address] 77183- 3924 17 Apr, 2016 Alcohol abuse F10.10 and Episode of recurrent major depressive disorder, unspecified depression episode severity F33.9 [facility] [id number] [place] [address] 21327- 8494 07 Apr, 2016 [facility] [id number] [place] [address] 42167- 4290 29 Feb, 2016 Depressive disorder, not elsewhere classified F32.9 and Uncomplicated alcohol dependence F10.20 IMMUNIZATIONS No Known Immunizations SOCIAL HISTORY Never Assessed REASON FOR VISIT SUBA f/u PLAN OF CARE Activity Details Follow Up 2 - 3 Days Reason: VITAL SIGNS MEDICATIONS Unknown Medications RESULTS No Results PROCEDURES Procedure Date Ordered Result Body Site Alcohol and/or drug services Feb 18, 2017 INSTRUCTIONS MEDICATIONS ADMINISTERED No Known Medications MEDICAL (GENERAL) HISTORY Type Description Date Medical History broken neck Medical History Alcoholism Surgical History 2 neck surgeris 2016 Surgical History tonsillectomy Surgical History tubes put in ears Hospitalization History [facility] 2016 Hospitalization History tonsilectomy
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
--- OUTSIDE RECORDS SUMMARY | 2018-01-01 12:51 | XMS REPORT ---
Author Author ARY BURNETT Organization [facility] Address [address] [place] [address] Care Team Providers Care Police Guard Name Role Phone ARY BURNETT Unavailable PROBLEMS Type Condition ICD9-CM Code [id number] Code Onset Dates Condition Status SNOMED Code Problem Uncomplicated alcohol dependence F10.20 Active 12201951 Problem Episode of recurrent major depressive disorder, unspecified depression episode severity F33.9 Active 679157401 Problem Alcohol abuse F10.10 Active 44926589 ALLERGIES No Information ENCOUNTERS Encounter Location Date Diagnosis [facility] [address] [place] [address] Dec, [facility] [address] [place] [address] Nov, Uncomplicated alcohol dependence F10.20 [facility] [address] [place] [address] Nov, Uncomplicated alcohol dependence F10.20 [facility] [place] [address] [address] Nov, [facility] [place] [id number] [place] [address] 95552- 8025 Nov, [facility] [place] [id number] [place] [address] 44494- 6022 October, [facility] [place] [id number] [place] [address] 92597- 0321 October, [facility] [address] [place] [address] October, Uncomplicated alcohol dependence F10.20 [facility] [place] [id number] [place] [address] 56711- 1403 October, [facility] [place] [address] [address]- 6[address] October, [facility] [address] [place] [address] October, Uncomplicated alcohol dependence F10.20 [facility] [place] [id number] [place] [address] 34279- 8448 October, [facility] [place] [id number] [place] [address] 66276- 8925 October, [facility] [place] [id number] [place] [address] 19465- 4400 October, [facility] [address] [place] [address] October, Uncomplicated alcohol dependence F10.20 [facility] [place] [id number] [place] [address] 53665- 0425 October, [facility] [place] [id number] [place] [address] 53843- 9202 October, [facility] [place] [id number] [place] [address] 53874- 9752 October, [facility] [place] [id number] [place] [address] 83221- 0752 October, [facility] [address] [place] [address] October, Uncomplicated alcohol dependence F10.20 [facility] [address] [place] [address] Sep, Uncomplicated alcohol dependence F10.20 [facility] [address] [place] [address] Sep, Uncomplicated alcohol dependence F10.20 [facility] [place] [id number] [place] [address] 69808- 4177 Sep, [facility] [address] [place] [address] Sep, Uncomplicated alcohol dependence F10.20 [facility] [place] [id number] [place] [address] 43981- 0973 Sep, [facility] [address] [place] [address] Sep, Uncomplicated alcohol dependence F10.20 [facility] [place] [address] [id number] [address] Sep, [facility] [id number] [place] [address] 35881- 6205 Sep, [facility] [address] [place] [address] Sep, Uncomplicated alcohol dependence F10.20 [facility] [place] [id number] [place] [address] 58028- 8848 Sep, [facility] [id number] [place] [address] 98791- 6274 Sep, [facility] [id number] [place] [address] 85130- 2616 Sep, [facility] [address] [place] [address] Sep, Uncomplicated alcohol dependence F10.20 [facility] [place] [id number] [place] [address] 88349- 1295 Sep, [facility] [id number] [place] [address] 75658- 6517 Aug, [facility] [place] [id number] [place] [address] 47115- 7335 Aug, [facility] [place] [id number] [place] [address] 23466- 9988 Aug, [facility] [address] [place] [address] Aug, Uncomplicated alcohol dependence F10.20 [facility] [place] [id number] [address] 3471 Aug, [facility] [place] [id number] [place] [address] 55426- 4689 Aug, [facility] [place] [address] [address] 3850 Aug, [facility] [place] [id number] [place] [address] 60696- 6429 Aug, [facility] [address] [place] [address] Aug, Uncomplicated alcohol dependence F10.20 [facility] [place] [id number] [place] [address] 50263- 4746 Aug, [facility] [place] [id number] [place] [address] 86300- 8359 Aug, Uncomplicated alcohol dependence F10.20 [facility] [address] [place] [address] Aug, Uncomplicated alcohol dependence F10.20 [facility] [place] [id number] [place] [address] 88586- 4021 Aug, [facility] [address] [place] [address] Aug, Uncomplicated alcohol dependence F10.20 [facility] [place] [id number] [place] [address] 23902- 0876 Aug, [facility] [address] [place] [address] Aug, Uncomplicated alcohol dependence F10.20 [facility] [place] [id number] [place] [address] 60731- 8935 Aug, [facility] [address] [place] [address] Aug, Uncomplicated alcohol dependence F10.20 [facility] [place] [id number] [place] [address] 23123- 9726 Aug, [facility] [place] [id number] [place] [address] 83919- 9326 Jul, [facility] [place] [id number] [place] [address] 14837- 6706 Jul, [facility] [address] [place] [address] Jul, Uncomplicated alcohol dependence F10.20 [facility] [place] [id number] [place] [address] 70899- 3624 Jul, [facility] [place] [address] [place] [address]- 0481 Jul, [facility] [address] [place] [address] Jul, Uncomplicated alcohol dependence F10.20 [facility] [place] [id number] [place] [address] 55709- 7208 Jul, [facility] [address] [place] [address] Jul, Uncomplicated alcohol dependence F10.20 [facility] [place] [address] 01732- 5796 15 Jul, 2017 [facility] [address] [place] [address] 15 Jul, 2017 Uncomplicated alcohol dependence F10.20 [facility] [address] [place] [address] 12 Jul, 2017 Uncomplicated alcohol dependence F10.20 [facility] [place] [address] 28619- 8588 08 Jul, 2017 [facility] [address] [place] [address] 08 Jul, 2017 Uncomplicated alcohol dependence F10.20 [facility] [address] [place] [address] 06 Jul, 2017 Uncomplicated alcohol dependence F10.20 [facility] [address] [place] [address] 05 Jul, 2017 Uncomplicated alcohol dependence F10.20 [facility] [address] [place] [address] Jun, Uncomplicated alcohol dependence F10.20 [facility] [address] [place] [address] May, Uncomplicated alcohol dependence F10.20 [facility] [place] [id number] [place] [address] 42168- 6336 May, [facility] [place] [address] 35971- 0148 May, Routine check-up Z00.00 [facility] [place] [id number] [place] [address] 18426- 9955 May, [facility] [place] [id number] [place] [address] 32314- 0961 13 May, 2017 [facility] [place] [address] 22824- 8710 29 Feb, 2016 [facility] [address] [place] [address] 29 Feb, 2016 Uncomplicated alcohol dependence F10.20 [facility] [address] [place] [address] 27 Feb, 2016 Uncomplicated alcohol dependence F10.20 [facility] [place] [id number] [place] [address] 78252 2547 21 Feb, 2016 [facility] [address] [place] [address] 21 Feb, 2016 Uncomplicated alcohol dependence F10.20 [facility] [address] [place] [address] 14 Feb, 2016 Uncomplicated alcohol dependence F10.20 [facility] [address] [place] [address] 12 Feb, 2016 Uncomplicated alcohol dependence F10.20 [facility] [place] [id number] [place] [address] 33904 2544 12 Feb, 2016 [facility] [address] [place] [address] 07 Feb, 2016 Uncomplicated alcohol dependence F10.20 [facility] [place] [id number] [place] [address] 25410 2540 07 Feb, 2017 [facility] [address] [place] [address] 05 Feb, 2016 Uncomplicated alcohol dependence F10.20 [facility] [place] [id number] [place] [address] 76516- 2545 05 Feb, 2016 [facility] [address] [place] [address] 30 Jan, 2017 Uncomplicated alcohol dependence F10.20 [facility] [address] [place] [address] Jan, Uncomplicated alcohol dependence F10.20 [facility] [address] [place] [address] Dec, Alcohol abuse F10.10 and Uncomplicated alcohol dependence F10.20 [facility] [address] [place] [address] Dec, Alcohol abuse F10.10 [facility] [address] [place] [address] Dec, Alcohol abuse F10.10 [facility] [address] [place] [address] Dec, Alcohol abuse F10.10 [facility] [address] [place] [address] Nov, Alcohol abuse F10.10 [facility] [id number] [place] [address] 50436- 2081 Nov, [facility] [address] [place] [address] Nov, Alcohol abuse F10.10 [facility] [address] [place] [address] Nov, Alcohol abuse F10.10 [facility] [place] [id number] [place] [address] 57445- 0250 Nov, [facility] [id number] [place] [address] 33216- 3709 Nov, [facility] [id number] [place] [address] 62598- 8856 October, [facility] [address] [place] [address] October, Alcohol abuse F10.10 [facility] [place] [id number] [place] [address] 74241- 7779 October, [facility] [id number] [place] [address] 01666- 2138 October, [facility] [id number] [place] [address] 69472- 4246 October, [facility] [address] [place] [address] October, Alcohol abuse F10.10 [facility] [address] [place] [address] October, Alcohol abuse F10.10 [facility] [id number] [place] [address] 54957- 8713 Sep, Alcohol abuse F10.10 [facility] [id number] [place] [address] 37835 2546 Sep, [facility] [address] [place] [address] Sep, Alcohol abuse F10.10 [facility] [place] [id number] [place] [address] 49589 2546 Sep, [facility] [address] [place] [address] Sep, Alcohol abuse F10.10 [facility] [place] [id number] [place] [address] 87896- 4486 Sep, [facility] [id number] [place] [address] 46594- 2018 Sep, [facility] [id number] [place] [address] 67470- 6011 Aug, [facility] [address] [place] [address] Aug, Alcohol abuse F10.10 [facility] [place] [id number] [place] [address] 57569- 8562 23 Aug, 2016 [facility] [address] [place] [address] 21 Aug, 2016 Alcohol abuse F10.10 [facility] [place] [id number] [place] [address] 46881- 7441 16 Aug, 2016 [facility] [address] [place] [address] 14 Aug, 2016 Alcohol abuse F10.10 [facility] [place] [id number] [place] [address] 73459 2547 09 Aug, 2016 [facility] [address] [place] [address] 07 Aug, 2016 Alcohol abuse F10.10 [facility] [place] [id number] [place] [address] 94056- 1348 02 Aug, 2016 [facility] [address] [place] [address] Jul, Alcohol abuse F10.10 [facility] [address] [place] [address] Jul, Alcohol abuse F10.10 [facility] [id number] [place] [address] 87384- 0861 Jul, [facility] [address] [place] [address] 16 Jul, 2016 Alcohol abuse F10.10 [facility] [address] [place] [address] Jul, Alcohol abuse F10.10 [facility] [address] [place] [address] Jun, Alcohol abuse F10.10 [facility] [id number] [place] [address] 35669- 0389 Jun, [facility] [address] [place] [address] Jun, Alcohol abuse F10.10 [facility] [address] [place] [address] Jun, Alcohol abuse F10.10 [facility] [id number] [place] [address] 65131- 0118 May, Episode of recurrent major depressive disorder, unspecified depression episode severity F33.9 and Alcohol abuse F10.10 [facility] [address] [place] [address] May, Alcohol abuse F10.10 [facility] [place] [address] [place] [address] 01309- 7599 May, [facility] [id number] [place] [address] 98594- 2545 May, Episode of recurrent major depressive disorder, unspecified depression episode severity F33.9 and Alcohol abuse F10.10 [facility] [address] [place] [address] 30 Apr, 2016 Alcohol abuse F10.10 [facility] [address] [place] [address] Apr, Alcohol abuse F10.10 [facility] [id number] [place] [address] 86007- 2225 17 Apr, 2016 Alcohol abuse F10.10 and Episode of recurrent major depressive disorder, unspecified depression episode severity F33.9 [facility] [place] [address] [facility] [id number] [address] 2209 07 Apr, 2016 [facility] [place] [address] [facility] [id number] [address]- 8461 29 Feb, 2016 Depressive disorder, not elsewhere [...]
--- OUTSIDE RECORDS SUMMARY | 2018-01-01 12:51 | XMS REPORT ---
Author Author ARY BURNETT Organization [facility] Address [address] [place] [address] Care Team Providers Care Investigator Name Role Phone ARY BURNETT Unavailable PROBLEMS Type Condition ICD9-CM Code VKR17-VR Code Onset Dates Condition Status SNOMED Code Problem Uncomplicated alcohol dependence F10.20 Active 10167616 Problem Episode of recurrent major depressive disorder, unspecified depression episode severity F33.9 Active 406993638 Problem Alcohol abuse F10.10 Active 62107863 ALLERGIES No Information ENCOUNTERS Encounter Location Date Diagnosis [facility] [address] [place] [address] Nov, [facility] [address] [place] [address] Nov, Uncomplicated alcohol dependence F10.20 [facility] [id number] [place] [address] 73834- 4214 Nov, [facility] [id number] [place] [address] 04993- 7817 Nov, [facility] [id number] [place] [address] 20886- 6267 October, [facility] [id number] [place] [address] 92477- 5949 October, [facility] [address] [place] [address] October, Uncomplicated alcohol dependence F10.20 [facility] [address] [address] October, [facility] [address] [address] October, [facility] [address] [place] [address] October, Uncomplicated alcohol dependence F10.20 [facility] [id number] [place] [address] 17310- 7804 October, [facility] [id number] [place] [address] 02391- 2484 October, [facility] [id number] [place] [address] 44645- 4094 October, [facility] [address] [place] [address] October, Uncomplicated alcohol dependence F10.20 [facility] [id number] [place] [address] 39833- 9131 October, [facility] [id number] [place] [address] 77558- 0538 October, [facility] [id number] [place] [address] 95419- 6014 October, [facility] [id number] [place] [address] 74505- 5387 October, [facility] [address] [place] [address] October, Uncomplicated alcohol dependence F10.20 [facility] [address] [place] [address] Sep, Uncomplicated alcohol dependence F10.20 [facility] [address] [place] [address] Sep, Uncomplicated alcohol dependence F10.20 [facility] [id number] [place] [address] 13702- 2852 Sep, [facility] [address] [place] [address] Sep, Uncomplicated alcohol dependence F10.20 [facility] [id number] [place] [address] 35318- 8558 Sep, [facility] [address] [place] [address] Sep, Uncomplicated alcohol dependence F10.20 [facility] [id number] [place] [address] 28392- 2931 Sep, [facility] [address] [address] Sep, [facility] [address] [place] [address] Sep, Uncomplicated alcohol dependence F10.20 [facility] [id number] [place] [address] 22682- 9401 Sep, [facility] [address] 63298- 6570 Sep, [facility] [id number] [place] [address] 42403- 4351 Sep, [facility] [address] [place] [address] Sep, Uncomplicated alcohol dependence F10.20 [facility] [id number] [place] [address] 35713- 7790 Sep, [facility] [id number] [place] [address] 07311- 7164 30 Aug, 2017 [facility] [id number] [place] [address] 22643- 1156 29 Aug, 2017 [facility] [id number] [place] [address] 56428- 9727 Aug, [facility] [address] [place] [address] Aug, Uncomplicated alcohol dependence F10.20 [facility] [id number] [place] [address] 40089- 9202 Aug, [facility] [id number] [place] [address] 01462- 4053 Aug, [facility] [id number] [place] [address] 76596- 2244 Aug, [facility] [id number] [place] [address] 71877- 6800 19 Aug, 2017 [facility] [address] [place] [address] 15 Aug, 2017 Uncomplicated alcohol dependence F10.20 [facility] [id number] [place] [address] 58919- 9223 Aug, [facility] [id number] [place] [address] 03803- 2664 Aug, Uncomplicated alcohol dependence F10.20 [facility] [address] [place] [address] Aug, Uncomplicated alcohol dependence F10.20 [facility] [id number] [place] [address] 21576- 1375 Aug, [facility] [address] [place] [address] Aug, Uncomplicated alcohol dependence F10.20 [facility] [id number] [place] [address] 94369- 5417 Aug, [facility] [address] [place] [address] Aug, Uncomplicated alcohol dependence F10.20 [facility] [id number] [place] [address] 76688- 1657 Aug, [facility] [address] [place] [address] Aug, Uncomplicated alcohol dependence F10.20 [facility] [id number] [place] [address] 22579- 5733 Aug, [facility] [id number] [place] [address] 99858- 4031 Jul, [facility] [id number] [place] [address] 65894- 1895 Jul, [facility] [address] [place] [address] Jul, Uncomplicated alcohol dependence F10.20 [facility] [id number] [place] [address] 30947- 3499 Jul, [facility] [id number] [place] [address] 30385- 9535 Jul, [facility] [address] [place] [address] Jul, Uncomplicated alcohol dependence F10.20 [facility] [id number] [place] [address] 29640- 6095 Jul, [facility] [address] [place] [address] Jul, Uncomplicated alcohol dependence F10.20 [facility] [id number] [place] [address] 80793- 2072 15 Jul, 2017 [facility] [address] [place] [address] Jul, Uncomplicated alcohol dependence F10.20 [facility] [address] [place] [address] 12 Jul, 2017 Uncomplicated alcohol dependence F10.20 [facility] [address] 62459- 4270 08 Jul, 2017 [facility] [address] [place] [address] 08 Jul, 2017 Uncomplicated alcohol dependence F10.20 [facility] [address] [place] [address] 06 Jul, 2017 Uncomplicated alcohol dependence F10.20 [facility] [address] [place] [address] 05 Jul, 2017 Uncomplicated alcohol dependence F10.20 [facility] [address] [place] [address] Jun, Uncomplicated alcohol dependence F10.20 [facility] [address] [place] [address] May, Uncomplicated alcohol dependence F10.20 [facility] [id number] [place] [address] 95760- 1031 May, [facility] [address] 78755- 8103 May, Routine check-up Z00.00 [facility] [id number] [place] [address] 28837- 4644 14 May, 2017 [facility] [address] 00141- 6896 May, [facility] [id number] [place] [address] 01833 2544 29 Feb, 2016 [facility] [address] [place] [address] 29 Feb, 2016 Uncomplicated alcohol dependence F10.20 [facility] [address] [place] [address] 27 Feb, 2016 Uncomplicated alcohol dependence F10.20 [facility] [address] [address] 2546 21 Feb, 2016 [facility] [address] [place] [address] 21 Feb, 2016 Uncomplicated alcohol dependence F10.20 [facility] [address] [place] [address] 14 Feb, 2016 Uncomplicated alcohol dependence F10.20 [facility] [address] [place] [address] 12 Feb, 2016 Uncomplicated alcohol dependence F10.20 [facility] [address] 75649 2547 12 Feb, 2016 [facility] [address] [place] [address] 07 Feb, 2016 Uncomplicated alcohol dependence F10.20 [facility] [address] 80267 2546 07 Feb, 2016 [facility] [address] [place] [address] 05 Feb, 2016 Uncomplicated alcohol dependence F10.20 [facility] [id number] [place] [address] 98681 2545 05 Feb, 2016 [facility] [address] [place] [address] 30 Jan, 2017 Uncomplicated alcohol dependence F10.20 [facility] [address] [place] [address] Jan, Uncomplicated alcohol dependence F10.20 [facility] [address] [place] [address] Dec, Alcohol abuse F10.10 and Uncomplicated alcohol dependence F10.20 [facility] [address] [place] [address] Dec, Alcohol abuse F10.10 [facility] [address] [place] [address] Dec, Alcohol abuse F10.10 [facility] [address] [place] [address] Dec, Alcohol abuse F10.10 [facility] [address] [place] [address] Nov, Alcohol abuse F10.10 [facility] [address] [place] [address] 25767- 2706 Nov, [facility] [address] [place] [address] Nov, Alcohol abuse F10.10 [facility] [address] [place] [address] Nov, Alcohol abuse F10.10 [facility] [address] [place] [address] 66305- 1504 Nov, [facility] [id number] [place] [address] 92250- 1494 Nov, [facility] [id number] [place] [address] 21076- 9702 October, [facility] [address] [place] [address] October, Alcohol abuse F10.10 [facility] [address] [place] [address] 32545- 9544 October, [facility] [address] [address] 6759 October, [facility] [id number] [place] [address] 96394- 2656 October, [facility] [address] [place] [address] October, Alcohol abuse F10.10 [facility] [address] [place] [address] October, Alcohol abuse F10.10 [facility] [address] [address] 6[address] Sep, Alcohol abuse F10.10 [facility] [id number] [address]- 2146 Sep, [facility] [address] [place] [address] Sep, Alcohol abuse F10.10 [facility] [id number] [place] [address] 45144 2546 Sep, [facility] [address] [place] [address] Sep, Alcohol abuse F10.10 [facility] [id number] [place] [address] 94408- 4836 Sep, [facility] [id number] [place] [address] 93767- 5276 Sep, [facility] [id number] [place] [address] 20717- 6347 30 Aug, 2016 [facility] [address] [place] [address] 28 Aug, 2016 Alcohol abuse F10.10 [facility] [id number] [place] [address] 27014- 1029 23 Aug, 2016 [facility] [address] [place] [address] 21 Aug, 2016 Alcohol abuse F10.10 [facility] [id number] [place] [address] 87034- 0376 16 Aug, 2016 [facility] [address] [place] [address] 14 Aug, 2016 Alcohol abuse F10.10 [facility] [address] [place] [address] 46058- 2547 09 Aug, 2016 [facility] [address] [place] [address] 07 Aug, 2016 Alcohol abuse F10.10 [facility] [address] [place] [address] 18285- 6946 02 Aug, 2016 [facility] [address] [place] [address] 28 Jul, 2016 Alcohol abuse F10.10 [facility] [address] [place] [address] Jul, Alcohol abuse F10.10 [facility] [id number] [address] 6528 Jul, [facility] [address] [place] [address] Jul, Alcohol abuse F10.10 [facility] [address] [place] [address] Jul, Alcohol abuse F10.10 [facility] [address] [place] [address] Jun, Alcohol abuse F10.10 [facility] [id number] [place] [address] 88494- 0541 Jun, [facility] [address] [place] [address] Jun, Alcohol abuse F10.10 [facility] [address] [place] [address] Jun, Alcohol abuse F10.10 [facility] [id number] [place] [address] 37237- 2568 May, Episode of recurrent major depressive disorder, unspecified depression episode severity F33.9 and Alcohol abuse F10.10 [facility] [address] [place] [address] May, Alcohol abuse F10.10 [facility] [address] [place] [address] 38422- 6593 May, [facility] [id number] [place] [address] 68926- 9580 May, Episode of recurrent major depressive disorder, unspecified depression episode severity F33.9 and Alcohol abuse F10.10 [facility] [address] [place] [address] Apr, Alcohol abuse F10.10 [facility] [address] [place] [address] Apr, Alcohol abuse F10.10 [facility] [address] [place] [address] 36063- 6914 Apr, Alcohol abuse F10.10 and Episode of recurrent major depressive disorder, unspecified depression episode severity F33.9 [facility] [address] [id number] [place] [address] 6721 Apr, [facility] [address] [id number] [place] [address] 0642 Feb, Depressive disorder, not elsewhere classified F32.9 and Uncomplicated alcohol dependence F10.20 IMMUNIZATIONS No Known Immunizations SOCIAL HISTORY Never Assessed REASON FOR VISIT SUBAB F/U PLAN OF CARE Activity Details Follow Up 2 - 3 Days Reason: VITAL SIGNS MEDICATIONS Unknown Medications RESULTS No Results PROCEDURES Procedure Date Ordered Result Body Site Alcohol and/or drug services August 12, 2017 INSTRUCTIONS MEDICATIONS ADMINISTERED No Known Medications MEDICAL (GENERAL) HISTORY Type Description Date Medical History broken neck Medical History Alcoholism Surgical History 2 neck surgeris 2016 Surgical History tonsillectomy Surgical History tubes put in ears Hospitalization History [facility] 2016 Hospitalization History tonsilectomy
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
--- OUTSIDE RECORDS SUMMARY | 2018-01-01 12:52 | XMS REPORT ---
Author Author VERONIKA HAYNES Organization [facility] [place] Address [address] [place] [address] Care Team Providers Care Cook Mess Name Role Phone VERONIKA HAYNES Unavailable PROBLEMS Type Condition ICD9-CM Code [id number] Code Onset Dates Condition Status SNOMED Code Problem Uncomplicated alcohol dependence F10.20 Active 21405522 Problem Episode of recurrent major depressive disorder, unspecified depression episode severity F33.9 Active 352603425 Problem Alcohol abuse F10.10 Active 51899218 ALLERGIES No Information ENCOUNTERS Encounter Location Date Diagnosis [facility] [address] [place] [address] Nov, [facility] [address] [place] [address] Nov, Uncomplicated alcohol dependence F10.20 [facility] [place] [id number] [place] [address] [phone]- [phone] Nov, [facility] [place] [id number] [place] [address] 99471- 3765 Nov, [facility] [place] [id number] [place] [address] 07825- 5069 October, [facility] [place] [id number] [place] [address] 97154- 0617 October, [facility] [address] [place] [address] October, Uncomplicated alcohol dependence F10.20 [facility] [place] [id number] [place] [address] [phone]- [phone] October, [facility] [place] [id number] [place] [address] 07219- 5236 October, [facility] [address] [place] [address] October, Uncomplicated alcohol dependence F10.20 [facility] [place] [id number] [place] [address] 95186- 5406 October, [facility] [place] [id number] [place] [address] [phone]- [phone] October, [facility] [place] [id number] [place] [address] 47411- 5357 October, [facility] [address] [place] [address] October, Uncomplicated alcohol dependence F10.20 [facility] [place] [id number] [place] [address] 75761- 1582 October, [facility] [place] [id number] [place] [address] [phone]- [phone] October, [facility] [place] [id number] [place] [address] 66102- 7729 October, [facility] [place] [id number] [place] [address] 94043- 4769 October, [facility] [address] [place] [address] October, Uncomplicated alcohol dependence F10.20 [facility] [address] [place] [address] Sep, Uncomplicated alcohol dependence F10.20 [facility] [address] [place] [address] Sep, Uncomplicated alcohol dependence F10.20 [facility] [place] [id number] [place] [address] [phone]- 0445 Sep, [facility] [address] [place] [address] Sep, Uncomplicated alcohol dependence F10.20 [facility] [place] [id number] [place] [address] 15835- [phone] Sep, [facility] [address] [place] [address] Sep, Uncomplicated alcohol dependence F10.20 [facility] [place] [id number] [place] [address] 75854- 9190 Sep, [facility] [place] [address] [address] Sep, [facility] [address] [place] [address] Sep, Uncomplicated alcohol dependence F10.20 [facility] [place] [id number] [place] [address] 68159- 6151 Sep, [facility] [place] [address] 56975- 7045 Sep, [facility] [id number] [place] [address] 95316- [phone] Sep, [facility] [address] [place] [address] Sep, Uncomplicated alcohol dependence F10.20 [facility] [place] [id number] [place] [address] 89693- 8874 Sep, [facility] [place] [id number] [place] [address] 70844- [phone] 30 Aug, 2017 [facility] [place] [id number] [place] [address] 55003- 7354 29 Aug, 2017 [facility] [place] [id number] [place] [address] [phone]- [phone] Aug, [facility] [address] [place] [address] Aug, Uncomplicated alcohol dependence F10.20 [facility] [place] [id number] [place] [address] 02970- 1580 Aug, [facility] [place] [id number] [place] [address] [phone]- 0885 Aug, [facility] [place] [id number] [place] [address] [phone]- [phone] Aug, [facility] [place] [address] [place] [address] 14905- 3395 19 Aug, 2017 [facility] [address] [place] [address] 15 Aug, 2017 Uncomplicated alcohol dependence F10.20 [facility] [place] [id number] [place] [address] 12735- 4404 Aug, [facility] [place] [id number] [place] [address] 94451- 4960 Aug, Uncomplicated alcohol dependence F10.20 [facility] [address] [place] [address] Aug, Uncomplicated alcohol dependence F10.20 [facility] [place] [id number] [place] [address] 33970- 8985 Aug, [facility] [address] [place] [address] Aug, Uncomplicated alcohol dependence F10.20 [facility] [place] [id number] [place] [address] 77768- 4066 Aug, [facility] [address] [place] [address] Aug, Uncomplicated alcohol dependence F10.20 [facility] [place] [id number] [place] [address] 72486- [phone] Aug, [facility] [address] [place] [address] Aug, Uncomplicated alcohol dependence F10.20 [facility] [place] [id number] [place] [address] 47551- 1030 Aug, [facility] [place] [id number] [place] [address] 12232- 5123 Jul, [facility] [place] [id number] [place] [address] 55965- 6103 Jul, [facility] [address] [place] [address] Jul, Uncomplicated alcohol dependence F10.20 [facility] [place] [id number] [place] [address] 13171- 1562 Jul, [facility] [place] [id number] [place] [address] 80815- 3192 Jul, [facility] [address] [place] [address] Jul, Uncomplicated alcohol dependence F10.20 [facility] [place] [id number] [place] [address] 08613- 6546 Jul, [facility] [address] [place] [address] Jul, Uncomplicated alcohol dependence F10.20 [facility] [place] [id number] [place] [address] 69191- 2208 15 Jul, 2017 [facility] [address] [place] [address] Jul, Uncomplicated alcohol dependence F10.20 [facility] [address] [place] [address] 12 Jul, 2017 Uncomplicated alcohol dependence F10.20 [facility] [place] [address] 49589- 7462 08 Jul, 2017 [facility] [address] [place] [address] 08 Jul, 2017 Uncomplicated alcohol dependence F10.20 [facility] [address] [place] [address] 06 Jul, 2017 Uncomplicated alcohol dependence F10.20 [facility] [address] [place] [address] 05 Jul, 2017 Uncomplicated alcohol dependence F10.20 [facility] [address] [place] [address] Jun, Uncomplicated alcohol dependence F10.20 [facility] [address] [place] [address] May, Uncomplicated alcohol dependence F10.20 [facility] [place] [id number] [place] [address] 51112- 1669 May, [facility] [place] [address] 93230- 9698 May, Routine check-up Z00.00 [facility] [place] [id number] [place] [address] 09748- 6305 14 May, 2017 [facility] [place] [address] 79932- 8616 May, [facility] [id number] [place] [address] [phone] 29 Feb, 2016 [facility] [address] [place] [address] 29 Feb, 2016 Uncomplicated alcohol dependence F10.20 [facility] [address] [place] [address] 27 Feb, 2016 Uncomplicated alcohol dependence F10.20 [facility] [place] [address] [address]800 2546 21 Feb, 2016 [facility] [address] [place] [address] 21 Feb, 2016 Uncomplicated alcohol dependence F10.20 [facility] [address] [place] [address] 14 Feb, 2016 Uncomplicated alcohol dependence F10.20 [facility] [address] [place] [address] 12 Feb, 2016 Uncomplicated alcohol dependence F10.20 [facility] [place] [address] [address] 2547 12 Feb, 2016 [facility] [address] [place] [address] 07 Feb, 2016 Uncomplicated alcohol dependence F10.20 [facility] [place] [address] [address]014 2546 07 Feb, 2016 [facility] [address] [place] [address] 05 Feb, 2016 Uncomplicated alcohol dependence F10.20 [facility] [place] [id number] [place] [address] 29185 2547 05 Feb, 2016 [facility] [address] [place] [address] 30 Jan, 2017 Uncomplicated alcohol dependence F10.20 [facility] [address] [place] [address] Jan, Uncomplicated alcohol dependence F10.20 [facility] [address] [place] [address] Dec, Alcohol abuse F10.10 and Uncomplicated alcohol dependence F10.20 [facility] [address] [place] [address] Dec, Alcohol abuse F10.10 [facility] [address] [place] [address] Dec, Alcohol abuse F10.10 [facility] [address] [place] [address] Dec, Alcohol abuse F10.10 [facility] [address] [place] [address] Nov, Alcohol abuse F10.10 [facility] [place] [address] [place] [address] 56713- 0046 Nov, [facility] [address] [place] [address] Nov, Alcohol abuse F10.10 [facility] [address] [place] [address] Nov, Alcohol abuse F10.10 [facility] [place] [address] [place] [address] 02841- 0116 Nov, [facility] [address] [place] [address] 45122- 9698 Nov, [facility] [id number] [place] [address] 35549- 2267 October, [facility] [address] [place] [address] October, Alcohol abuse F10.10 [facility] [place] [address] [place] [address] 22593- 6190 October, [facility] [address] [address]- 5113 October, [facility] [address] [place] [address] 91144- 8324 October, [facility] [address] [place] [address] October, Alcohol abuse F10.10 [facility] [address] [place] [address] October, Alcohol abuse F10.10 [facility] [address] [address]18 Sep, Alcohol abuse F10.10 [facility] [place] [address] [address]- 4746 Sep, [facility] [address] [place] [address] Sep, Alcohol abuse F10.10 [facility] [place] [id number] [place] [address] 01437 2546 Sep, [facility] [address] [place] [address] Sep, Alcohol abuse F10.10 [facility] [place] [id number] [place] [address] 53035- 5816 Sep, [facility] [id number] [place] [address] 97928- 3166 Sep, [facility] [id number] [place] [address] 57686- 8448 30 Aug, 2016 [facility] [address] [place] [address] 28 Aug, 2016 Alcohol abuse F10.10 [facility] [place] [id number] [place] [address] 15118- 0209 23 Aug, 2016 [facility] [address] [place] [address] 21 Aug, 2016 Alcohol abuse F10.10 [facility] [place] [id number] [place] [address] 97745- 0236 16 Aug, 2016 [facility] [address] [place] [address] 14 Aug, 2016 Alcohol abuse F10.10 [facility] [place] [address] [place] [address] 18109- 2540 09 Aug, 2016 [facility] [address] [place] [address] 07 Aug, 2016 Alcohol abuse F10.10 [facility] [place] [address] [place] [address] 78261- 3096 02 Aug, 2016 [facility] [address] [place] [address] 28 Jul, 2016 Alcohol abuse F10.10 [facility] [address] [place] [address] Jul, Alcohol abuse F10.10 [facility] [address] [address] 37[address] Jul, [facility] [address] [place] [address] Jul, Alcohol abuse F10.10 [facility] [address] [place] [address] Jul, Alcohol abuse F10.10 [facility] [address] [place] [address] Jun, Alcohol abuse F10.10 [facility] [id number] [place] [address] 78531- 7758 Jun, [facility] [address] [place] [address] Jun, Alcohol abuse F10.10 [facility] [address] [place] [address] Jun, Alcohol abuse F10.10 [facility] [place] [id number] [place] [address] 54942- 2257 May, Episode of recurrent major depressive disorder, unspecified depression episode severity F33.9 and Alcohol abuse F10.10 [facility] [address] [place] [address] May, Alcohol abuse F10.10 [facility] [place] [address] [place] [address] 16906- 5998 May, [facility] [id number] [place] [address] 55486- 8356 May, Episode of recurrent major depressive disorder, unspecified depression episode severity F33.9 and Alcohol abuse F10.10 [facility] [address] [place] [address] Apr, Alcohol abuse F10.10 [facility] [address] [place] [address] Apr, Alcohol abuse F10.10 [facility] [address] [place] [address] 30305- 8434 Apr, Alcohol abuse F10.10 and Episode of recurrent major depressive disorder, unspecified depression episode severity F33.9 [facility] [place] [address] [facility] [id number] [place] [address] Apr, [facility] [place] [address] [facility] [id number] [place] [address] 4[address] Feb, Depressive disorder, not elsewhere classified F32.9 and Uncomplicated alcohol dependence F10.20 IMMUNIZATIONS No Known Immunizations SOCIAL HISTORY Never Assessed REASON FOR VISIT GROUP (30 min) PLAN OF CARE VITAL SIGNS MEDICATIONS Unknown [...]
--- OUTSIDE RECORDS SUMMARY | 2018-01-01 12:52 | XMS REPORT ---
Author Author ARY BURNETT Organization [facility] Address [address] [place] [address] Care Team Providers Care Dye Box Operator Name Role Phone ARY BURNETT Unavailable PROBLEMS Type Condition ICD9-CM Code ODC90-UO Code Onset Dates Condition Status SNOMED Code Problem Uncomplicated alcohol dependence F10.20 Active 34695324 Problem Episode of recurrent major depressive disorder, unspecified depression episode severity F33.9 Active 898080104 Problem Alcohol abuse F10.10 Active [id number] ALLERGIES No Information ENCOUNTERS Encounter Location Date Diagnosis [facility] [address] [place] [address] Nov, [facility] [address] [place] [address] Nov, Uncomplicated alcohol dependence F10.20 [facility] [id number] [place] [address] 66675- 1150 Nov, [facility] [id number] [place] [address] 01956- 8482 Nov, [facility] [id number] [place] [address] 06909- 4215 October, [facility] [id number] [place] [address] 69208- 5308 October, [facility] [address] [place] [address] October, Uncomplicated alcohol dependence F10.20 [facility] [address] [address] October, [facility] [address] 90415- 4681 October, [facility] [address] [place] [address] October, Uncomplicated alcohol dependence F10.20 [facility] [id number] [place] [address] 47007- 7913 October, [facility] [id number] [place] [address] 08816- 3287 October, [facility] [id number] [place] [address] 75115- 8969 October, [facility] [address] [place] [address] October, Uncomplicated alcohol dependence F10.20 [facility] [id number] [place] [address] 51334- 9865 October, [facility] [id number] [place] [address] 37277- 2787 October, [facility] [id number] [place] [address] 93750- 2285 October, [facility] [id number] [place] [address] 84629- 2918 October, [facility] [address] [place] [address] October, Uncomplicated alcohol dependence F10.20 [facility] [address] [place] [address] Sep, Uncomplicated alcohol dependence F10.20 [facility] [address] [place] [address] Sep, Uncomplicated alcohol dependence F10.20 [facility] [address] [place] [address] Sep, Uncomplicated alcohol dependence F10.20 [facility] [id number] [place] [address] 20868- 0179 Sep, [facility] [id number] [place] [address] 54698- 5041 Sep, [facility] [address] [place] [address] Sep, Uncomplicated alcohol dependence F10.20 [facility] [id number] [place] [address] 54259- 3586 Sep, [facility] [address] [address] Sep, [facility] [address] [place] [address] Sep, Uncomplicated alcohol dependence F10.20 [facility] [id number] [place] [address] 88646- 4412 Sep, [facility] [address] 68826- 6908 Sep, [facility] [id number] [place] [address] 45923- 3876 Sep, [facility] [address] [place] [address] Sep, Uncomplicated alcohol dependence F10.20 [facility] [id number] [place] [address] 81768- 4843 Sep, [facility] [id number] [place] [address] 73652- 1818 30 Aug, 2017 [facility] [id number] [place] [address] 76056- 4067 29 Aug, 2017 [facility] [id number] [place] [address] 73469- 4693 Aug, [facility] [address] [place] [address] Aug, Uncomplicated alcohol dependence F10.20 [facility] [id number] [place] [address] 19556- 8393 Aug, [facility] [id number] [place] [address] 73882- 1629 Aug, [facility] [id number] [place] [address] 59762- 1263 Aug, [facility] [id number] [place] [address] 52669- 5331 19 Aug, 2017 [facility] [address] [place] [address] 15 Aug, 2017 Uncomplicated alcohol dependence F10.20 [facility] [address] [place] [address] 84414- 7093 Aug, [facility] [id number] [place] [address] 59254- 3315 Aug, Uncomplicated alcohol dependence F10.20 [facility] [address] [place] [address] Aug, Uncomplicated alcohol dependence F10.20 [facility] [id number] [place] [address] 93353- 5280 Aug, [facility] [address] [place] [address] Aug, Uncomplicated alcohol dependence F10.20 [facility] [id number] [place] [address] 80781- 2421 Aug, [facility] [address] [place] [address] Aug, Uncomplicated alcohol dependence F10.20 [facility] [id number] [place] [address] 28083- 3923 Aug, [facility] [address] [place] [address] Aug, Uncomplicated alcohol dependence F10.20 [facility] [id number] [place] [address] 09825- 7121 Aug, [facility] [id number] [place] [address] 05790- 9192 Jul, [facility] [id number] [place] [address] 38786- 1899 Jul, [facility] [address] [place] [address] Jul, Uncomplicated alcohol dependence F10.20 [facility] [id number] [place] [address] 24166- 4392 Jul, [facility] [id number] [place] [address] 24788- 7014 Jul, [facility] [address] [place] [address] Jul, Uncomplicated alcohol dependence F10.20 [facility] [id number] [place] [address] 09620- 6796 Jul, [facility] [address] [place] [address] Jul, Uncomplicated alcohol dependence F10.20 [facility] [id number] [place] [address] 85000- 2091 15 Jul, 2017 [facility] [address] [place] [address] Jul, Uncomplicated alcohol dependence F10.20 [facility] [address] [place] [address] 12 Jul, 2017 Uncomplicated alcohol dependence F10.20 [facility] [address] 98107- 7571 08 Jul, 2017 [facility] [address] [place] [address] 08 Jul, 2017 Uncomplicated alcohol dependence F10.20 [facility] [address] [place] [address] 06 Jul, 2017 Uncomplicated alcohol dependence F10.20 [facility] [address] [place] [address] 05 Jul, 2017 Uncomplicated alcohol dependence F10.20 [facility] [address] [place] [address] Jun, Uncomplicated alcohol dependence F10.20 [facility] [address] [place] [address] May, Uncomplicated alcohol dependence F10.20 [facility] [id number] [place] [address] 85650- 6513 May, [facility] [address] 70965- 4092 May, Routine check-up Z00.00 [facility] [id number] [place] [address] 78113- 6267 14 May, 2017 [facility] [address] 83307- 3429 May, [facility] [id number] [place] [address] 39906 2547 29 Feb, 2016 [facility] [address] [place] [address] 29 Feb, 2016 Uncomplicated alcohol dependence F10.20 [facility] [address] [place] [address] 27 Feb, 2016 Uncomplicated alcohol dependence F10.20 [facility] [address] 34768 2546 21 Feb, 2016 [facility] [address] [place] [address] 21 Feb, 2016 Uncomplicated alcohol dependence F10.20 [facility] [address] [place] [address] 14 Feb, 2016 Uncomplicated alcohol dependence F10.20 [facility] [address] [place] [address] 12 Feb, 2016 Uncomplicated alcohol dependence F10.20 [facility] [address] [address] 2540 12 Feb, 2016 [facility] [address] [place] [address] 07 Feb, 2016 Uncomplicated alcohol dependence F10.20 [facility] [address] 70691 2546 07 Feb, 2016 [facility] [address] [place] [address] 05 Feb, 2016 Uncomplicated alcohol dependence F10.20 [facility] [id number] [place] [address] 15681 2548 05 Feb, 2016 [facility] [address] [place] [address] 30 Jan, 2017 Uncomplicated alcohol dependence F10.20 [facility] [address] [place] [address] Jan, Uncomplicated alcohol dependence F10.20 [facility] [address] [place] [address] Dec, Alcohol abuse F10.10 and Uncomplicated alcohol dependence F10.20 [facility] [address] [place] [address] Dec, Alcohol abuse F10.10 [facility] [address] [place] [address] Dec, Alcohol abuse F10.10 [facility] [address] [place] [address] Dec, Alcohol abuse F10.10 [facility] [address] [place] [address] Nov, Alcohol abuse F10.10 [facility] [address] [place] [address] 27320- 9026 Nov, [facility] [address] [place] [address] Nov, Alcohol abuse F10.10 [facility] [address] [place] [address] Nov, Alcohol abuse F10.10 [facility] [id number] [place] [address] 75439- 4505 Nov, [facility] [id number] [place] [address] 75416- 3511 Nov, [facility] [id number] [place] [address] 10102- 5872 October, [facility] [address] [place] [address] October, Alcohol abuse F10.10 [facility] [address] [place] [address] 28762- 3417 October, [facility] [address] [address]- 0267 October, [facility] [address] [place] [address] 52508- 4066 October, [facility] [address] [place] [address] October, Alcohol abuse F10.10 [facility] [address] [place] [address] October, Alcohol abuse F10.10 [facility] [place] [address] [place] [address]- 3529 Sep, Alcohol abuse F10.10 [facility] [id number] [address]- 4966 Sep, [facility] [address] [place] [address] Sep, Alcohol abuse F10.10 [facility] [id number] [place] [address] 01387 2546 Sep, [facility] [address] [place] [address] Sep, Alcohol abuse F10.10 [facility] [id number] [place] [address] 20531- 8356 Sep, [facility] [id number] [place] [address] 60727- 0706 Sep, [facility] [id number] [place] [address] 28471- 9317 30 Aug, 2016 [facility] [address] [place] [address] 28 Aug, 2016 Alcohol abuse F10.10 [facility] [id number] [place] [address] 77443- 9684 23 Aug, 2016 [facility] [address] [place] [address] 21 Aug, 2016 Alcohol abuse F10.10 [facility] [id number] [place] [address] 19682- 8896 16 Aug, 2016 [facility] [address] [place] [address] 14 Aug, 2016 Alcohol abuse F10.10 [facility] [address] [place] [address] 76768- 2548 09 Aug, 2016 [facility] [address] [place] [address] 07 Aug, 2016 Alcohol abuse F10.10 [facility] [address] [place] [address] 81400- 4696 02 Aug, 2016 [facility] [address] [place] [address] 28 Jul, 2016 Alcohol abuse F10.10 [facility] [address] [place] [address] Jul, Alcohol abuse F10.10 [facility] [id number] [address]- 8359 Jul, [facility] [address] [place] [address] Jul, Alcohol abuse F10.10 [facility] [address] [place] [address] Jul, Alcohol abuse F10.10 [facility] [address] [place] [address] Jun, Alcohol abuse F10.10 [facility] [id number] [place] [address] 57506- 6777 Jun, [facility] [address] [place] [address] Jun, Alcohol abuse F10.10 [facility] [address] [place] [address] Jun, Alcohol abuse F10.10 [facility] [id number] [place] [address] 20321- 1727 May, Episode of recurrent major depressive disorder, unspecified depression episode severity F33.9 and Alcohol abuse F10.10 [facility] [address] [place] [address] May, Alcohol abuse F10.10 [facility] [address] [place] [address] 97264- 3010 May, [facility] [id number] [place] [address] 90628- 9465 May, Episode of recurrent major depressive disorder, unspecified depression episode severity F33.9 and Alcohol abuse F10.10 [facility] [address] [place] [address] Apr, Alcohol abuse F10.10 [facility] [address] [place] [address] Apr, Alcohol abuse F10.10 [facility] [id number] [place] [address] 68204- 5633 Apr, Alcohol abuse F10.10 and Episode of recurrent major depressive disorder, unspecified depression episode severity F33.9 [facility] [address] [facility] [id number] [place] [address]- 1150 Apr, [facility] [address] [facility] [id number] [place] [address]- 8645 Feb, Depressive disorder, not elsewhere classified F32.9 [...]
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
--- OUTSIDE RECORDS SUMMARY | 2018-01-01 12:53 | XMS REPORT ---
Author Author VERONIKA HAYNES Organization [facility] Address [address] [place] [address] Care Team Providers Care Deblocker Name Role Phone VERONIKA HAYNES Unavailable PROBLEMS Type Condition ICD9-CM Code QDX71-AN Code Onset Dates Condition Status SNOMED Code Problem Uncomplicated alcohol dependence F10.20 Active 97032514 Problem Episode of recurrent major depressive disorder, unspecified depression episode severity F33.9 Active 875706054 Problem Alcohol abuse F10.10 Active 96927600 ALLERGIES No Information ENCOUNTERS Encounter Location Date Diagnosis [facility] [address] [place] [address] Nov, [facility] [address] [place] [address] Nov, Uncomplicated alcohol dependence F10.20 [facility] [id number] [place] [address] 90873- 7551 Nov, [facility] [id number] [place] [address] 73906- 8795 Nov, [facility] [id number] [place] [address] 68394- 2907 October, [facility] [id number] [place] [address] 12128- 9435 October, [facility] [address] [place] [address] October, Uncomplicated alcohol dependence F10.20 [facility] [id number] [place] [address] 02061- 9754 October, [facility] [id number] [place] [address] 82235- 4637 October, [facility] [address] [place] [address] October, Uncomplicated alcohol dependence F10.20 [facility] [id number] [place] [address] 32314- 8677 October, [facility] [id number] [place] [address] 05562- 5160 October, [facility] [id number] [place] [address] 86815- 7157 October, [facility] [address] [place] [address] October, Uncomplicated alcohol dependence F10.20 [facility] [id number] [place] [address] 23798- 6059 October, [facility] [id number] [place] [address] 80670- 1174 October, [facility] [id number] [place] [address] 05851- 8460 October, [facility] [id number] [place] [address] 69737- 1333 October, [facility] [address] [place] [address] October, Uncomplicated alcohol dependence F10.20 [facility] [address] [place] [address] Sep, Uncomplicated alcohol dependence F10.20 [facility] [address] [place] [address] Sep, Uncomplicated alcohol dependence F10.20 [facility] [address] [place] [address] Sep, Uncomplicated alcohol dependence F10.20 [facility] [id number] [place] [address] 78581- 9456 Sep, [facility] [id number] [place] [address] 01265- 0255 Sep, [facility] [address] [place] [address] Sep, Uncomplicated alcohol dependence F10.20 [facility] [id number] [place] [address] 74077- 6795 Sep, [facility] [address] [address] Sep, [facility] [address] [place] [address] Sep, Uncomplicated alcohol dependence F10.20 [facility] [id number] [place] [address] 46999- 5629 Sep, [facility] [address] 18535- 6697 Sep, [facility] [id number] [place] [address] 62746- 7415 Sep, [facility] [address] [place] [address] Sep, Uncomplicated alcohol dependence F10.20 [facility] [id number] [place] [address] 18560- 4748 Sep, [facility] [id number] [place] [address] 71534- 5639 30 Aug, 2017 [facility] [id number] [place] [address] 88250- 7007 29 Aug, 2017 [facility] [id number] [place] [address] 57391- 1908 Aug, [facility] [address] [place] [address] Aug, Uncomplicated alcohol dependence F10.20 [facility] [id number] [place] [address] 90141- 0065 Aug, [facility] [id number] [place] [address] 19589- 1974 Aug, [facility] [id number] [place] [address] 36713- 5022 Aug, [facility] [id number] [place] [address] 01418- 9419 19 Aug, 2017 [facility] [address] [place] [address] 15 Aug, 2017 Uncomplicated alcohol dependence F10.20 [facility] [id number] [place] [address] 60078- 0896 Aug, [facility] [id number] [place] [address] 34080- 2506 Aug, Uncomplicated alcohol dependence F10.20 [facility] [address] [place] [address] Aug, Uncomplicated alcohol dependence F10.20 [facility] [id number] [place] [address] 48762- 5877 Aug, [facility] [address] [place] [address] Aug, Uncomplicated alcohol dependence F10.20 [facility] [id number] [place] [address] 59721- 6802 Aug, [facility] [address] [place] [address] Aug, Uncomplicated alcohol dependence F10.20 [facility] [id number] [place] [address] 83158- 0787 Aug, [facility] [address] [place] [address] Aug, Uncomplicated alcohol dependence F10.20 [facility] [id number] [place] [address] 12467- 6250 Aug, [facility] [id number] [place] [address] 36092- 8840 Jul, [facility] [id number] [place] [address] 22959- 1197 Jul, [facility] [address] [place] [address] Jul, Uncomplicated alcohol dependence F10.20 [facility] [id number] [place] [address] 64872- 4021 Jul, [facility] [id number] [place] [address] 37641- 6040 Jul, [facility] [address] [place] [address] Jul, Uncomplicated alcohol dependence F10.20 [facility] [id number] [place] [address] 68786- 6553 Jul, [facility] [address] [place] [address] Jul, Uncomplicated alcohol dependence F10.20 [facility] [id number] [place] [address] 98599- 0939 15 Jul, 2017 [facility] [address] [place] [address] Jul, Uncomplicated alcohol dependence F10.20 [facility] [address] [place] [address] 12 Jul, 2017 Uncomplicated alcohol dependence F10.20 [facility] [address] 08733- 8293 08 Jul, 2017 [facility] [address] [place] [address] 08 Jul, 2017 Uncomplicated alcohol dependence F10.20 [facility] [address] [place] [address] 06 Jul, 2017 Uncomplicated alcohol dependence F10.20 [facility] [address] [place] [address] 05 Jul, 2017 Uncomplicated alcohol dependence F10.20 [facility] [address] [place] [address] Jun, Uncomplicated alcohol dependence F10.20 [facility] [address] [place] [address] May, Uncomplicated alcohol dependence F10.20 [facility] [id number] [place] [address] 25243- 9398 May, [facility] [address] 88331- 5988 May, Routine check-up Z00.00 [facility] [id number] [place] [address] 87949- 7917 14 May, 2017 [facility] [address] 77793- 8970 May, [facility] [id number] [place] [address] 26188 2543 29 Feb, 2016 [facility] [address] [place] [address] 29 Feb, 2016 Uncomplicated alcohol dependence F10.20 [facility] [address] [place] [address] 27 Feb, 2016 Uncomplicated alcohol dependence F10.20 [facility] [address] [address]32 2546 21 Feb, 2016 [facility] [address] [place] [address] 21 Feb, 2016 Uncomplicated alcohol dependence F10.20 [facility] [address] [place] [address] 14 Feb, 2016 Uncomplicated alcohol dependence F10.20 [facility] [address] [place] [address] 12 Feb, 2016 Uncomplicated alcohol dependence F10.20 [facility] [address] 12461 2548 12 Feb, 2016 [facility] [address] [place] [address] 07 Feb, 2016 Uncomplicated alcohol dependence F10.20 [facility] [address] 34518 2546 07 Feb, 2016 [facility] [address] [place] [address] 05 Feb, 2016 Uncomplicated alcohol dependence F10.20 [facility] [id number] [place] [address] 71363 2542 05 Feb, 2016 [facility] [address] [place] [address] 30 Jan, 2017 Uncomplicated alcohol dependence F10.20 [facility] [address] [place] [address] Jan, Uncomplicated alcohol dependence F10.20 [facility] [address] [place] [address] Dec, Alcohol abuse F10.10 and Uncomplicated alcohol dependence F10.20 [facility] [address] [place] [address] Dec, Alcohol abuse F10.10 [facility] [address] [place] [address] Dec, Alcohol abuse F10.10 [facility] [address] [place] [address] Dec, Alcohol abuse F10.10 [facility] [address] [place] [address] Nov, Alcohol abuse F10.10 [facility] [id number] [place] [address] 70442- 2886 Nov, [facility] [address] [place] [address] Nov, Alcohol abuse F10.10 [facility] [address] [place] [address] Nov, Alcohol abuse F10.10 [facility] [id number] [place] [address] 85849- 8017 Nov, [facility] [id number] [place] [address] 30749- [address] Nov, [facility] [id number] [place] [address] 04916- 1409 October, [facility] [address] [place] [address] October, Alcohol abuse F10.10 [facility] [id number] [place] [address] 73788- 3833 October, [facility] [address] [address] 5940 October, [facility] [id number] [place] [address] 71530- 1508 October, [facility] [address] [place] [address] October, Alcohol abuse F10.10 [facility] [address] [place] [address] October, Alcohol abuse F10.10 [facility] [address] [address]- 3281 Sep, Alcohol abuse F10.10 [facility] [id number] [address]- 4606 Sep, [facility] [address] [place] [address] Sep, Alcohol abuse F10.10 [facility] [id number] [place] [address] 48119 2546 Sep, [facility] [address] [place] [address] Sep, Alcohol abuse F10.10 [facility] [id number] [place] [address] 49527- 2986 Sep, [facility] [id number] [place] [address] 11039- 4136 Sep, [facility] [id number] [place] [address] 18760- 0122 30 Aug, 2016 [facility] [address] [place] [address] 28 Aug, 2016 Alcohol abuse F10.10 [facility] [id number] [place] [address] 38950- 0840 23 Aug, 2016 [facility] [address] [place] [address] 21 Aug, 2016 Alcohol abuse F10.10 [facility] [id number] [place] [address] 33170- 0416 16 Aug, 2016 [facility] [address] [place] [address] 14 Aug, 2016 Alcohol abuse F10.10 [facility] [id number] [place] [address] 51762- 2545 09 Aug, 2016 [facility] [address] [place] [address] 07 Aug, 2016 Alcohol abuse F10.10 [facility] [id number] [place] [address] 82837- 5166 02 Aug, 2016 [facility] [address] [place] [address] 28 Jul, 2016 Alcohol abuse F10.10 [facility] [address] [place] [address] Jul, Alcohol abuse F10.10 [facility] [id number] [address] 5433 Jul, [facility] [address] [place] [address] Jul, Alcohol abuse F10.10 [facility] [address] [place] [address] Jul, Alcohol abuse F10.10 [facility] [address] [place] [address] Jun, Alcohol abuse F10.10 [facility] [id number] [place] [address] 29563- 9367 Jun, [facility] [address] [place] [address] Jun, Alcohol abuse F10.10 [facility] [address] [place] [address] Jun, Alcohol abuse F10.10 [facility] [id number] [place] [address] 96121- 1996 May, Episode of recurrent major depressive disorder, unspecified depression episode severity F33.9 and Alcohol abuse F10.10 [facility] [address] [place] [address] May, Alcohol abuse F10.10 [facility] [id number] [place] [address] 79969- 7047 May, [facility] [id number] [place] [address] 85474- 7611 May, Episode of recurrent major depressive disorder, unspecified depression episode severity F33.9 and Alcohol abuse F10.10 [facility] [address] [place] [address] Apr, Alcohol abuse F10.10 [facility] [address] [place] [address] Apr, Alcohol abuse F10.[address] [facility] [id number] [place] [address] 52068- 8435 Apr, Alcohol abuse F10.10 and Episode of recurrent major depressive disorder, unspecified depression episode severity F33.9 [facility] [address] [facility] [id number] [place] [address] Apr, [facility] [address] [facility] [id number] [place] [address]- 4985 Feb, Depressive disorder, not elsewhere classified F32.9 [...]
--- OUTSIDE RECORDS SUMMARY | 2018-01-01 12:54 | XMS REPORT ---
Author Author ARY BURNETT Organization [facility] Address [address] [place] [address] Care Team Providers Care Clinical Specialty Rep Name Role Phone ARY BURNETT Unavailable PROBLEMS Type Condition ICD9-CM Code [id number] Code Onset Dates Condition Status SNOMED Code Problem Uncomplicated alcohol dependence F10.20 Active 19650200 Problem Episode of recurrent major depressive disorder, unspecified depression episode severity F33.9 Active 135686208 Problem Alcohol abuse F10.10 Active 83358306 ALLERGIES No Information ENCOUNTERS Encounter Location Date Diagnosis [facility] [address] [place] [address] 30 Aug, 2017 [facility] [place] [address] [address] Aug, [facility] [address] [place] [address] 27 Aug, 2017 [facility] [place] [address] [address] Aug, [facility] [place] [id number] [place] [address]24- 1968 Aug, [facility] [place] [id number] [place] [address] 93151- 6488 Aug, [facility] [place] [id number] [place] [address]25- 2374 Aug, [facility] [address] [place] [address] 15 Aug, 2017 Uncomplicated alcohol dependence F10.20 [facility] [place] [id number] [place] [address] 87691- 6305 15 Aug, 2017 [facility] [place] [id number] [place] [address] 79281- 4168 Aug, Uncomplicated alcohol dependence F10.20 [facility] [address] [place] [address] Aug, Uncomplicated alcohol dependence F10.20 [facility] [place] [id number] [place] [address] 52178- 1785 Aug, [facility] [address] [place] [address] Aug, Uncomplicated alcohol dependence F10.20 [facility] [place] [address] [address] Aug, [facility] [address] [place] [address] Aug, Uncomplicated alcohol dependence F10.20 [facility] [place] [address] [address] Aug, [facility] [address] [place] [address] Aug, Uncomplicated alcohol dependence F10.20 [facility] [place] [id number] [place] [address] 36171- 8139 Aug, [facility] [place] [address] [address] Jul, [facility] [place] [id number] [place] [address] 57873- 4864 Jul, [facility] [address] [place] [address] Jul, Uncomplicated alcohol dependence F10.20 [facility] [place] [id number] [place] [address] 22966- 6481 Jul, [facility] [place] [id number] [place] [address] 28456- 9172 Jul, [facility] [address] [place] [address] Jul, Uncomplicated alcohol dependence F10.20 [facility] [place] [id number] [place] [address] 96024- [address]77 Jul, [facility] [address] [place] [address] Jul, Uncomplicated alcohol dependence F10.20 [facility] [place] [id number] [place] [address] 35246- 0293 15 Jul, 2017 [facility] [address] [place] [address] 15 Jul, 2017 Uncomplicated alcohol dependence F10.20 [facility] [address] [place] [address] 12 Jul, 2017 Uncomplicated alcohol dependence F10.20 [facility] [place] [address] [address] Jul, [facility] [address] [place] [address] Jul, Uncomplicated alcohol dependence F10.20 [facility] [address] [place] [address] 06 Jul, 2017 Uncomplicated alcohol dependence F10.20 [facility] [address] [place] [address] 05 Jul, 2017 Uncomplicated alcohol dependence F10.20 [facility] [address] [place] [address] Jun, Uncomplicated alcohol dependence F10.20 [facility] [address] [place] [address] May, Uncomplicated alcohol dependence F10.20 [facility] [place] [id number] [place] [address] 37910- 0028 May, [facility] [place] [id number] [place] [address] 50536- 2421 May, Routine check-up Z00.00 [facility] [place] [id number] [place] [address] 16541- 1231 14 May, 2017 [facility] [place] [id number] [place] [address] 97223- 2665 May, [facility] [place] [address] [address] Feb, [facility] [address] [place] [address] Feb, Uncomplicated alcohol dependence F10.20 [facility] [address] [place] [address] 27 Feb, 2016 Uncomplicated alcohol dependence F10.20 [facility] [id number] [place] [address] 08810- 6684 21 Feb, 2016 [facility] [address] [place] [address] 21 Feb, 2016 Uncomplicated alcohol dependence F10.20 [facility] [address] [place] [address] 14 Feb, 2016 Uncomplicated alcohol dependence F10.20 [facility] [address] [place] [address] 12 Feb, 2016 Uncomplicated alcohol dependence F10.20 [facility] [id number] [place] [address] 36459- 6449 12 Feb, 2017 [facility] [address] [place] [address] 07 Feb, 2016 Uncomplicated alcohol dependence F10.20 [facility] [id number] [place] [address] 11834- 0957 07 Feb, 2017 [facility] [address] [place] [address] 05 Feb, 2016 Uncomplicated alcohol dependence F10.20 [facility] [id number] [place] [address] 68183- 2754 05 Feb, 2017 [facility] [address] [place] [address] Jan, Uncomplicated alcohol dependence F10.20 [facility] [address] [place] [address] Jan, Uncomplicated alcohol dependence F10.20 [facility] [address] [place] [address] Dec, Alcohol abuse F10.10 and Uncomplicated alcohol dependence F10.20 [facility] [address] [place] [address] Dec, Alcohol abuse F10.10 [facility] [address] [place] [address] Dec, Alcohol abuse F10.10 [facility] [address] [place] [address] Dec, Alcohol abuse F10.10 [facility] [address] [place] [address] Nov, Alcohol abuse F10.10 [facility] [address] [address] Nov, [facility] [address] [place] [address] Nov, Alcohol abuse F10.10 [facility] [address] [place] [address] Nov, Alcohol abuse F10.10 [facility] [id number] [place] [address] 25160- 1991 Nov, [facility] [id number] [place] [address] 32490- 2082 Nov, [facility] [id number] [place] [address] 69785- 4671 October, [facility] [address] [place] [address] October, Alcohol abuse F10.10 [facility] [id number] [place] [address] 01541- 5220 October, [facility] [id number] [place] [address] 12158- 9311 October, [facility] [id number] [place] [address] 00205- 3527 October, [facility] [address] [place] [address] October, Alcohol abuse F10.10 [facility] [address] [place] [address] October, Alcohol abuse F10.10 [facility] [id number] [place] [address] 02556- 1767 Sep, Alcohol abuse F10.10 [facility] [id number] [place] [address] 20728- 4755 Sep, [facility] [address] [place] [address] Sep, Alcohol abuse F10.10 [facility] [id number] [place] [address] 55706- 7146 06 Sep, 2016 [facility] [address] [place] [address] Sep, Alcohol abuse F10.10 [facility] [id number] [place] [address] 87739- 1635 04 Sep, 2016 [facility] [id number] [place] [address] 04441- 0143 Sep, [facility] [id number] [place] [address] 94692- 1560 30 Aug, 2016 [facility] [address] [place] [address] 28 Aug, 2016 Alcohol abuse F10.10 [facility] [id number] [place] [address] 74332- 1315 Aug, [facility] [address] [place] [address] Aug, Alcohol abuse F10.10 [facility] [id number] [place] [address] 86997- 3094 16 Aug, 2016 [facility] [address] [place] [address] 14 Aug, 2016 Alcohol abuse F10.10 [facility] [id number] [place] [address] 83154- 7644 09 Aug, 2016 [facility] [address] [place] [address] 07 Aug, 2016 Alcohol abuse F10.10 [facility] [id number] [place] [address] 05263- 9689 Aug, [facility] [address] [place] [address] 28 Jul, 2016 Alcohol abuse F10.10 [facility] [address] [place] [address] 24 Jul, 2016 Alcohol abuse F10.10 [facility] [id number] [place] [address] 42633- 2003 23 Jul, 2016 [facility] [address] [place] [address] 16 Jul, 2016 Alcohol abuse F10.10 [facility] [address] [place] [address] 07 Jul, 2016 Alcohol abuse F10.10 [facility] [address] [place] [address] Jun, Alcohol abuse F10.10 [facility] [place] [id number] [place] [address] 47457- 7776 Jun, [facility] [address] [place] [address] Jun, Alcohol abuse F10.10 [facility] [address] [place] [address] Jun, Alcohol abuse F10.10 [facility] [place] [id number] [place] [address] 88046- 5742 May, Episode of recurrent major depressive disorder, unspecified depression episode severity F33.9 and Alcohol abuse F10.10 [facility] [address] [place] [address] May, Alcohol abuse F10.10 [facility] [place] [id number] [place] [address] 71673- 4694 May, [facility] [place] [id number] [place] [address] 63242- 7131 May, Episode of recurrent major depressive disorder, unspecified depression episode severity F33.9 and Alcohol abuse F10.10 [facility] [address] [place] [address] 30 Apr, 2016 Alcohol abuse F10.10 [facility] [address] [place] [address] 23 Apr, 2016 Alcohol abuse F10.10 [facility] [place] [id number] [place] [address] 97932- 2543 17 Apr, 2016 Alcohol abuse F10.10 and Episode of recurrent major depressive disorder, unspecified depression episode severity F33.9 [facility] [place] [address] [place] [address] 14117- 2546 07 Apr, 2016 [facility] [place] [id number] [place] [address] 22471- 2544 29 Sep, 2016 Depressive disorder, not elsewhere classified F32.9 and Uncomplicated alcohol dependence F10.20 IMMUNIZATIONS No Known Immunizations SOCIAL HISTORY Never Assessed REASON FOR VISIT PS drop-in PLAN OF CARE VITAL SIGNS MEDICATIONS Unknown Medications RESULTS No Results PROCEDURES Procedure Date Ordered Result Body Site Alcohol and/or drug services November 04, 2016 INSTRUCTIONS MEDICATIONS ADMINISTERED No Known Medications MEDICAL (GENERAL) HISTORY Type Description Date Medical History broken neck Medical History Alcoholism Surgical History 2 neck surgeris 2016 Surgical History tonsillectomy Surgical History tubes put in ears Hospitalization History [facility] 2016 Hospitalization History tonsilectomy
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
--- OUTSIDE RECORDS SUMMARY | 2018-01-01 12:55 | XMS REPORT ---
Author Author VERONIKA HAYNES Organization [facility] Address [address] [place] [address] Care Team Providers Care Paraprofessional Aide Teacher Name Role Phone VERONIKA AHYNES Unavailable PROBLEMS Type Condition ICD9-CM Code LOL47-JA Code Onset Dates Condition Status SNOMED Code Problem Uncomplicated alcohol dependence F10.20 Active 69611745 Problem Episode of recurrent major depressive disorder, unspecified depression episode severity F33.9 Active 722079832 Problem Alcohol abuse F10.10 Active 79127432 ALLERGIES No Information ENCOUNTERS Encounter Location Date Diagnosis [facility] [address] [place] [address] Nov, [facility] [address] [place] [address] Nov, Uncomplicated alcohol dependence F10.20 [facility] [id number] [address] 81185- 3861 Nov, [facility] [id number] [address] 92097- 0242 Nov, [facility] [id number] [address] 35215- 3122 October, [facility] [id number] [address] 73155- 4922 October, [facility] [address] [place] [address] October, Uncomplicated alcohol dependence F10.20 [facility] [id number] [address] 22533- 6297 October, [facility] [id number] [address] 72706- 1727 October, [facility] [address] [place] [address] October, Uncomplicated alcohol dependence F10.20 [facility] [id number] [address] 10508- 3201 October, [facility] [id number] [address] 99313- 2984 October, [facility] [id number] [address] 50828- 3172 October, [facility] [address] [place] [address] October, Uncomplicated alcohol dependence F10.20 [facility] [id number] [address] 86298- 0397 October, [facility] [id number] [address] 66681- 0866 October, [facility] [id number] [address] 23836- 4835 October, [facility] [id number] [address] 85543- 7656 October, [facility] [address] [place] [address] October, Uncomplicated alcohol dependence F10.20 [facility] [address] [place] [address] Sep, Uncomplicated alcohol dependence F10.20 [facility] [address] [place] [address] Sep, Uncomplicated alcohol dependence F10.20 [facility] [id number] [address] 25456- 0514 Sep, [facility] [address] [place] [address] Sep, Uncomplicated alcohol dependence F10.20 [facility] [id number] [address] 95354- 1011 Sep, [facility] [address] [place] [address] Sep, Uncomplicated alcohol dependence F10.20 [facility] [id number] [address] 36041- 4657 Sep, [facility] [address] [address] 1427 Sep, [facility] [address] [place] [address] Sep, Uncomplicated alcohol dependence F10.20 [facility] [id number] [address] 20912- 0479 Sep, [facility] [address] 02977- 5606 Sep, [facility] [id number] [address] 35598- 8399 Sep, [facility] [address] [place] [address] Sep, Uncomplicated alcohol dependence F10.20 [facility] [id number] [address] 92927- 5152 Sep, [facility] [id number] [address] 33446- 7101 30 Aug, 2017 [facility] [id number] [address] 23442- 3370 29 Aug, 2017 [facility] [id number] [address] 21103- 1864 Aug, [facility] [address] [place] [address] Aug, Uncomplicated alcohol dependence F10.20 [facility] [id number] [address] 80663- 6570 Aug, [facility] [id number] [address] 57644- 9944 Aug, [facility] [id number] [address] 62273- 2680 Aug, [facility] [id number] [address] 63440- 0573 19 Aug, 2017 [facility] [address] [place] [address] 15 Aug, 2017 Uncomplicated alcohol dependence F10.20 [facility] [id number] [address] 74047- 9465 Aug, [facility] [id number] [address] 24596- 1286 Aug, Uncomplicated alcohol dependence F10.20 [facility] [address] [place] [address] Aug, Uncomplicated alcohol dependence F10.20 [facility] [id number] [address] 79930- 2682 Aug, [facility] [address] [place] [address] Aug, Uncomplicated alcohol dependence F10.20 [facility] [id number] [address] 22456- 7568 Aug, [facility] [address] [place] [address] Aug, Uncomplicated alcohol dependence F10.20 [facility] [id number] [address] 47408- 0091 Aug, [facility] [address] [place] [address] Aug, Uncomplicated alcohol dependence F10.20 [facility] [id number] [address] 32260- 7363 Aug, [facility] [id number] [address] 69881- 5485 Jul, [facility] [id number] [address] 42154- 1196 Jul, [facility] [address] [place] [address] Jul, Uncomplicated alcohol dependence F10.20 [facility] [id number] [address] 79439- 7097 Jul, [facility] [id number] [address] 11022- 6804 Jul, [facility] [address] [place] [address] Jul, Uncomplicated alcohol dependence F10.20 [facility] [id number] [address] 31096- 7468 Jul, [facility] [address] [place] [address] Jul, Uncomplicated alcohol dependence F10.20 [facility] [id number] [address] 05314- 3184 15 Jul, 2017 [facility] [address] [place] [address] Jul, Uncomplicated alcohol dependence F10.20 [facility] [address] [place] [address] 12 Jul, 2017 Uncomplicated alcohol dependence F10.20 [facility] [address] 42149- 9777 08 Jul, 2017 [facility] [address] [place] [address] 08 Jul, 2017 Uncomplicated alcohol dependence F10.20 [facility] [address] [place] [address] 06 Jul, 2017 Uncomplicated alcohol dependence F10.20 [facility] [address] [place] [address] 05 Jul, 2017 Uncomplicated alcohol dependence F10.20 [facility] [address] [place] [address] Jun, Uncomplicated alcohol dependence F10.20 [facility] [address] [place] [address] May, Uncomplicated alcohol dependence F10.20 [facility] [id number] [address] 76349- 6237 May, [facility] [address] 03465- 3043 May, Routine check-up Z00.00 [facility] [id number] [address] 58455- 5231 14 May, 2017 [facility] [address] 67148- 4528 May, [facility] [id number] [address] 13883 2545 29 Feb, 2016 [facility] [address] [place] [address] 29 Feb, 2016 Uncomplicated alcohol dependence F10.20 [facility] [address] [place] [address] 27 Feb, 2016 Uncomplicated alcohol dependence F10.20 [facility] [address] [address]008 2546 21 Feb, 2016 [facility] [address] [place] [address] 21 Feb, 2016 Uncomplicated alcohol dependence F10.20 [facility] [address] [place] [address] 14 Feb, 2016 Uncomplicated alcohol dependence F10.20 [facility] [address] [place] [address] 12 Feb, 2016 Uncomplicated alcohol dependence F10.20 [facility] [address] [address] 2547 12 Feb, 2016 [facility] [address] [place] [address] 07 Feb, 2016 Uncomplicated alcohol dependence F10.20 [facility] [address] [address] 2546 07 Feb, 2016 [facility] [address] [place] [address] 05 Feb, 2016 Uncomplicated alcohol dependence F10.20 [facility] [id number] [address] 15834 2545 05 Feb, 2016 [facility] [address] [place] [address] 30 Jan, 2017 Uncomplicated alcohol dependence F10.20 [facility] [address] [place] [address] Jan, Uncomplicated alcohol dependence F10.20 [facility] [address] [place] [address] Dec, Alcohol abuse F10.10 and Uncomplicated alcohol dependence F10.20 [facility] [address] [place] [address] Dec, Alcohol abuse F10.10 [facility] [address] [place] [address] Dec, Alcohol abuse F10.10 [facility] [address] [place] [address] Dec, Alcohol abuse F10.10 [facility] [address] [place] [address] Nov, Alcohol abuse F10.10 [facility] [id number] [address] 13149- 6216 Nov, [facility] [address] [place] [address] Nov, Alcohol abuse F10.10 [facility] [address] [place] [address] Nov, Alcohol abuse F10.10 [facility] [id number] [address] 78533- 5994 Nov, [facility] [id number] [address] 77077- 5574 Nov, [facility] [id number] [address] 30780- 8896 October, [facility] [address] [place] [address] October, Alcohol abuse F10.10 [facility] [id number] [address] 94091- 5677 October, [facility] [address] [address] 7388 October, [facility] [id number] [address] 34823- 5023 October, [facility] [address] [place] [address] October, Alcohol abuse F10.10 [facility] [address] [place] [address] October, Alcohol abuse F10.10 [facility] [address] [address]- 6547 Sep, Alcohol abuse F10.10 [facility] [id number] [address]- 3486 Sep, [facility] [address] [place] [address] Sep, Alcohol abuse F10.10 [facility] [id number] [address] 86435 2546 Sep, [facility] [address] [place] [address] Sep, Alcohol abuse F10.10 [facility] [id number] [address] 58362- 1226 Sep, [facility] [id number] [address] 16483- 2256 Sep, [facility] [id number] [address] 88996- 9404 30 Aug, 2016 [facility] [address] [place] [address] 28 Aug, 2016 Alcohol abuse F10.10 [facility] [id number] [address] 82803- 9861 23 Aug, 2016 [facility] [address] [place] [address] 21 Aug, 2016 Alcohol abuse F10.10 [facility] [id number] [address] 52268- 1356 16 Aug, 2016 [facility] [address] [place] [address] 14 Aug, 2016 Alcohol abuse F10.10 [facility] [id number] [address] 61011- 2542 09 Aug, 2016 [facility] [address] [place] [address] 07 Aug, 2016 Alcohol abuse F10.10 [facility] [id number] [address] 79736- 0826 02 Aug, 2016 [facility] [address] [place] [address] 28 Jul, 2016 Alcohol abuse F10.10 [facility] [address] [place] [address] Jul, Alcohol abuse F10.10 [facility] [id number] [address] 2590 Jul, [facility] [address] [place] [address] Jul, Alcohol abuse F10.10 [facility] [address] [place] [address] Jul, Alcohol abuse F10.10 [facility] [address] [place] [address] Jun, Alcohol abuse F10.10 [facility] [id number] [address] 77356- 3261 Jun, [facility] [address] [place] [address] Jun, Alcohol abuse F10.10 [facility] [address] [place] [address] Jun, Alcohol abuse F10.10 [facility] [id number] [address] 66533- 4221 May, Episode of recurrent major depressive disorder, unspecified depression episode severity F33.9 and Alcohol abuse F10.10 [facility] [address] [place] [address] May, Alcohol abuse F10.10 [facility] [id number] [address] 67964- 8702 May, [facility] [id number] [address] 91976- 1634 May, Episode of recurrent major depressive disorder, unspecified depression episode severity F33.9 and Alcohol abuse F10.10 [facility] [address] [place] [address] Apr, Alcohol abuse F10.10 [facility] [address] [place] [address] Apr, Alcohol abuse F10.10 [facility] [id number] [address] 00408- 5544 Apr, Alcohol abuse F10.10 and Episode of recurrent major depressive disorder, unspecified depression episode severity F33.9 [facility] [address] [facility] [id number] [address] 4[address] Apr, [facility] [address] [facility] [id number] [place] [address] 5[address] Feb, Depressive disorder, not elsewhere classified F32.9 [...]
--- OUTSIDE RECORDS SUMMARY | 2018-01-01 12:55 | XMS REPORT ---
Author Author ARY BURNETT Organization [facility] Address [address] [place] [address] Care Team Providers Care Technical Sales Representative Name Role Phone ARY BURNETT Unavailable PROBLEMS Type Condition ICD9-CM Code CXB61-LC Code Onset Dates Condition Status SNOMED Code Problem Uncomplicated alcohol dependence F10.20 Active 52488615 Problem Episode of recurrent major depressive disorder, unspecified depression episode severity F33.9 Active 421269360 Problem Alcohol abuse F10.10 Active 17175674 ALLERGIES No Information ENCOUNTERS Encounter Location Date Diagnosis [facility] [address] [place] [address] Sep, Uncomplicated alcohol dependence F10.20 [facility] [address] [place] [address] Sep, Uncomplicated alcohol dependence F10.20 [facility], [place] [id number] [place] [address] 32133- 2143 Sep, [facility] [address] [place] [address] Sep, Uncomplicated alcohol dependence F10.20 [facility], [place] [id number] [place] [address] 95680- 7210 Sep, [facility] [address] [place] [address] Sep, Uncomplicated alcohol dependence F10.20 [facility], [place] [id number] [place] [address] 61641- 0067 Sep, [facility] [address] [address] Sep, [facility] [address] [place] [address] Sep, Uncomplicated alcohol dependence F10.20 [facility], [place] [address] [address] Sep, [facility], [place] [address] [address] Sep, [facility] [id number] [place] [address] 89102- 3627 Sep, [facility] [address] [place] [address] Sep, Uncomplicated alcohol dependence F10.20 [facility], [place] [id number] [place] [address] 47132- 8887 Sep, [facility], [place] [id number] [place] [address] 74448- 7993 30 Aug, 2017 [facility], [place] [id number] [place] [address] 08772- 9611 29 Aug, 2017 [facility], [place] [id number] [place] [address] 13492- 3706 Aug, [facility] [address] [place] [address] 27 Aug, 2017 Uncomplicated alcohol dependence F10.20 [facility], [place] [id number] [place] [address] 86870- 9846 Aug, [facility], [place] [id number] [place] [address] 78138- 3176 Aug, [facility], [place] [id number] [place] [address] 99320- 8102 Aug, [facility], [place] [id number] [place] [address] 94392- 9774 19 Aug, 2017 [facility] [address] [place] [address] 15 Aug, 2017 Uncomplicated alcohol dependence F10.20 [facility], [place] [id number] [place] [address] 19475- 9176 15 Aug, 2017 [facility], [place] [id number] [place] [address] 51624- 5434 15 Aug, 2017 Uncomplicated alcohol dependence F10.20 [facility] [address] [place] [address] Aug, Uncomplicated alcohol dependence F10.20 [facility], [place] [id number] [place] [address] 87884- 2693 Aug, [facility] [address] [place] [address] Aug, Uncomplicated alcohol dependence F10.20 [facility], [place] [id number] [place] [address] 59929- 1711 Aug, [facility] [address] [place] [address] Aug, Uncomplicated alcohol dependence F10.20 [facility], [place] [id number] [place] [address] 43128- 0380 Aug, [facility] [address] [place] [address] Aug, Uncomplicated alcohol dependence F10.20 [facility], [place] [id number] [place] [address] 67696- 7470 Aug, [facility], [place] [address] 62398- 4061 Jul, [facility], [place] [address] 51586[address] 8933 Jul, [facility] [address] [place] [address] Jul, Uncomplicated alcohol dependence F10.20 [facility], [place] [id number] [place] [address] 95709- 0091 Jul, [facility], [place] [id number] [place] [address] 37181- 8688 Jul, [facility] [address] [place] [address] Jul, Uncomplicated alcohol dependence F10.20 [facility], [place] [id number] [place] [address] 57954- 1732 Jul, [facility] [address] [place] [address] Jul, Uncomplicated alcohol dependence F10.20 [facility], [place] [id number] [place] [address] 26088- 0748 15 Jul, 2017 [facility] [address] [place] [address] 15 Jul, 2017 Uncomplicated alcohol dependence F10.20 [facility] [address] [place] [address] 12 Jul, 2017 Uncomplicated alcohol dependence F10.20 [facility], [place] [address] 20192- 0939 08 Jul, 2017 [facility] [address] [place] [address] 08 Jul, 2017 Uncomplicated alcohol dependence F10.20 [facility] [address] [place] [address] 06 Jul, 2017 Uncomplicated alcohol dependence F10.20 [facility] [address] [place] [address] 05 Jul, 2017 Uncomplicated alcohol dependence F10.20 [facility] [address] [place] [address] Jun, Uncomplicated alcohol dependence F10.20 [facility] [address] [place] [address] May, Uncomplicated alcohol dependence F10.20 [facility], [place] [address] 83989- 5266 May, [facility], [place] [id number] [place] [address] 84058- 5405 May, Routine check-up Z00.00 [facility], [place] [address] 30304- 4170 14 May, 2017 [facility], [place] [id number] [place] [address] 88099- 2919 13 May, 2017 [facility] [place] [address] 09958- 2338 29 Feb, 2017 [facility] [address] [place] [address] 29 Feb, 2017 Uncomplicated [facility] dependence F10.20 [facility] [address] [place] [address] 27 Feb, 2017 Uncomplicated alcohol dependence F10.20 [facility] [address] [place] [address] 21 Feb, 2016 [facility] [address] [place] [address] 21 Feb, 2016 Uncomplicated alcohol dependence F10.20 [facility] [address] [place] [address] 14 Feb, 2016 Uncomplicated alcohol dependence F10.20 [facility] [address] [place] [address] 12 Feb, 2016 Uncomplicated alcohol dependence F10.20 [facility] [address] [place] [address] 22969 2543 12 Feb, 2016 [facility] [address] [place] [address] 07 Feb, 2016 Uncomplicated alcohol dependence F10.20 [facility], [place] [address] [place] [address] 40310- 7649 07 Feb, 2016 [facility] [address] [place] [address] 05 Feb, 2016 Uncomplicated alcohol dependence F10.20 [facility] [address] [place] [address] 51333 2547 05 Feb, 2016 [facility] [address] [place] [address] 30 Jan, 2017 Uncomplicated alcohol dependence F10.20 [facility] [address] [place] [address] Jan, Uncomplicated alcohol dependence F10.20 [facility] [address] [place] [address] Dec, Alcohol abuse F10.10 and Uncomplicated alcohol dependence F10.20 [facility] [address] [place] [address] Dec, Alcohol abuse F10.10 [facility] [address] [place] [address] 18 Dec, 2016 Alcohol abuse F10.10 [facility] [address] [place] [address] Dec, Alcohol abuse F10.10 [facility] [address] [place] [address] Nov, Alcohol abuse F10.10 [facility] [address] [place] [address] Nov, [facility] [address] [place] [address] Nov, Alcohol abuse F10.10 [facility] [address] [place] [address] Nov, Alcohol abuse F10.10 [facility], [place] [id number] [place] [address] 99589- 6941 Nov, [facility] [id number] [place] [address] 98540- 7033 Nov, [facility], [place] [id number] [place] [address] 34716- 8747 October, [facility] [address] [place] [address] October, Alcohol abuse F10.10 [facility], [place] [id number] [place] [address] 56845- 2269 October, [facility] [place] [id number] [place] [address] 03155- 5406 October, [facility] [place] [id number] [place] [address] 21887- 9625 October, [facility] [address] [place] [address] October, Alcohol abuse F10.10 [facility] [address] [place] [address] October, Alcohol abuse F10.10 [facility], [place] [id number] [place] [address] 82842- 4546 Sep, Alcohol abuse F10.10 [facility], [place] [id number] [place] [address] 70938- 6430 Sep, [facility] [address] [place] [address] Sep, Alcohol abuse F10.10 [facility], [place] [address] [place] [address] 46628- 6297 Sep, [facility] [address] [place] [address] 04 Sep, 2016 Alcohol abuse F10.10 [facility] [id number] [place] [address] 90010- 9791 Sep, [facility] [id number] [place] [address] 16395- 6088 Sep, [facility] [id number] [place] [address] 14435- 1404 30 Aug, 2016 [facility] [address] [place] [address] 28 Aug, 2016 Alcohol abuse F10.10 [facility] [address] 72552- 9731 Aug, [facility] [address] [place] [address] Aug, Alcohol abuse F10.10 [facility] [place] [address] 26372- 8725 16 Aug, 2016 [facility] [address] [place] [address] 14 Aug, 2016 Alcohol abuse F10.10 [facility] [id number] [place] [address] 20800- 8354 09 Aug, 2016 [facility] [address] [place] [address] Aug, Alcohol abuse F10.10 [facility] [id number] [place] [address] 11905- 2025 Aug, [facility] [address] [place] [address] Jul, Alcohol abuse F10.10 [facility] [address] [place] [address] 24 Jul, 2016 Alcohol abuse F10.10 [facility] [id number] [place] [address] 80562- 9774 Jul, [facility] [address] [place] [address] 16 Jul, 2016 Alcohol abuse F10.10 [facility] [address] [place] [address] 07 Jul, 2016 Alcohol abuse F10.10 [facility] [address] [place] [address] Jun, Alcohol abuse F10.10 [facility] [place] [address] [place] [address] 92509- 0016 Jun, [facility] [address] [place] [address] Jun, Alcohol abuse F10.10 [facility] [address] [place] [address] Jun, Alcohol abuse F10.10 [facility] [place] [id number] [place] [address] 62903- 2207 May, Episode of recurrent major depressive disorder, unspecified depression episode severity F33.9 and Alcohol abuse F10.10 [facility] [address] [place] [address] May, Alcohol abuse F10.10 [facility] [place] [id number] [place] [address] 33443- 6086 May, [facility] [place] [id number] [place] [address] 12923- 0928 May, Episode of recurrent major depressive disorder, unspecified depression episode severity F33.9 and Alcohol abuse F10.10 [facility] [address] [place] [address] 30 Apr, 2016 Alcohol abuse F10.10 [facility] [address] [place] [address] 23 Apr, 2016 Alcohol abuse F10.10 [facility] [place] [id number] [place] [address] 44705- 1257 17 Apr, 2016 Alcohol abuse F10.10 and Episode of recurrent major depressive disorder, unspecified depression episode severity F33.9 [facility] [place] [id number] [place] [address] 75780- 2280 07 Apr, 2016 [facility] [place] [id number] [place] [address] 37199- 9329 29 Feb, 2016 Depressive disorder, not elsewhere classified F32.9 and Uncomplicated alcohol dependence F10.20 IMMUNIZATIONS No Known Immunizations SOCIAL HISTORY Never Assessed REASON FOR VISIT Tx Plan update PLAN OF CARE Activity Details Follow Up 2 - 3 Days Reason: VITAL SIGNS MEDICATIONS Unknown Medications RESULTS No Results PROCEDURES Procedure Date Ordered Result Body Site Alcohol and/or drug services Feb 11, 2017 INSTRUCTIONS MEDICATIONS ADMINISTERED No Known Medications MEDICAL (GENERAL) HISTORY Type Description Date Medical History broken neck Medical History Alcoholism Surgical History 2 neck surgeris 2016 Surgical History tonsillectomy Surgical History tubes put in ears Hospitalization History [facility] 2016 Hospitalization History tonsilectomy
--- OUTSIDE RECORDS SUMMARY | 2018-01-01 12:56 | XMS REPORT ---
Author Author ARY BURNETT Organization [facility] Address [address] [place] [address] Care Team Providers Care Medical Manager Name Role Phone ARY BURNETT Unavailable PROBLEMS Type Condition ICD9-CM Code QQE54-AP Code Onset Dates Condition Status SNOMED Code Problem Uncomplicated alcohol dependence F10.20 Active 28835197 Problem Episode of recurrent major depressive disorder, unspecified depression episode severity F33.9 Active 514849217 Problem Alcohol abuse F10.10 Active 22959863 ALLERGIES No Information SOCIAL HISTORY Never Assessed PLAN OF CARE VITAL SIGNS MEDICATIONS Unknown Medications RESULTS No Results PROCEDURES Procedure Date Ordered Result Body Site Alcohol and/or drug services November 09, 2016 IMMUNIZATIONS No Known Immunizations
--- OUTSIDE RECORDS SUMMARY | 2018-01-01 12:56 | XMS REPORT ---
Author Author ARY BURNETT Organization [facility] Address [address] [place] [address] Care Team Providers Care Animal Care Technician Name Role Phone ARY BURNETT Unavailable PROBLEMS Type Condition ICD9-CM Code TPL41-JA Code Onset Dates Condition Status SNOMED Code Problem Uncomplicated alcohol dependence F10.20 Active 44965634 Problem Episode of recurrent major depressive disorder, unspecified depression episode severity F33.9 Active 661613833 Problem Alcohol abuse F10.10 Active 36455620 ALLERGIES No Information ENCOUNTERS Encounter Location Date Diagnosis [facility] [id number] [place] [address] 58634- 8628 October, [facility] [id number] [place] [address] 11022- 5759 October, [facility] [address] [place] [address] October, Uncomplicated alcohol dependence F10.20 [facility] [id number] [place] [address] 44610- 3801 October, [facility] [id number] [place] [address] 67389- 7137 October, [facility] [address] [place] [address] October, Uncomplicated alcohol dependence F10.20 [facility] [id number] [place] [address] 13741- 0143 October, [facility] [id number] [place] [address] 56619- 2698 October, [facility] [id number] [place] [address] 29986- 5760 October, [facility] [address] [place] [address] October, Uncomplicated alcohol dependence F10.20 [facility] [address] [address] 97[address] October, [facility] [id number] [place] [address] 47802- 1163 October, [facility] [id number] [place] [address] 68641- 6265 October, [facility] [id number] [place] [address] 57415- 5781 October, [facility] [address] [place] [address] October, Uncomplicated alcohol dependence F10.20 [facility] [address] [place] [address] Sep, Uncomplicated alcohol dependence F10.20 [facility] [address] [place] [address] Sep, Uncomplicated alcohol dependence F10.20 [facility] [id number] [place] [address] 74457- 6946 Sep, [facility] [address] [place] [address] Sep, Uncomplicated alcohol dependence F10.20 [facility] [id number] [place] [address] 03585- 1638 Sep, [facility] [address] [place] [address] Sep, Uncomplicated alcohol dependence F10.20 [facility] [id number] [place] [address] 20313- 5124 Sep, [facility] [id number] [place] [address] 13640- 6601 Sep, [facility] [address] [place] [address] Sep, Uncomplicated alcohol dependence F10.20 [facility] [id number] [place] [address] 94054- 7776 Sep, [facility] [id number] [place] [address] 49765- 5467 Sep, [facility] [id number] [place] [address] 06426- 6482 Sep, [facility] [address] [place] [address] Sep, Uncomplicated alcohol dependence F10.20 [facility] [id number] [place] [address] 92349- 8932 Sep, [facility] [id number] [place] [address] 46163- 0101 30 Aug, 2017 [facility] [id number] [place] [address] 85446- 6946 29 Aug, 2017 [facility] [id number] [place] [address] 75104- 6522 27 Aug, 2017 [facility] [address] [place] [address] 27 Aug, 2017 Uncomplicated alcohol dependence F10.20 [facility] [id number] [place] [address] 64806- 7502 22 Aug, 2017 [facility] [id number] [place] [address] 12187- 2971 22 Aug, 2017 [facility] [id number] [place] [address] 42592- 2337 20 Aug, 2017 [facility] [address] [place] [address] 84416- 7121 19 Aug, 2017 [facility] [address] [place] [address] 15 Aug, 2017 Uncomplicated alcohol dependence F10.20 [facility] [address] [address] 4242 15 Aug, 2017 [facility] [id number] [place] [address] 47865- 0670 15 Aug, 2017 Uncomplicated alcohol dependence F10.20 [facility] [address] [place] [address] 13 Aug, 2017 Uncomplicated alcohol dependence F10.20 [facility] [id number] [address] 9243 Aug, [facility] [address] [place] [address] Aug, Uncomplicated alcohol dependence F10.20 [facility] [id number] [place] [address] 46032 2546 Aug, [facility] [address] [place] [address] Aug, Uncomplicated alcohol dependence F10.20 [facility] [id number] [place] [address] 92924 2540 Aug, [facility] [address] [place] [address] Aug, Uncomplicated alcohol dependence F10.20 [facility] [id number] [place] [address] 85125- 6344 Aug, [facility] [id number] [place] [address] 12296- 6607 Jul, [facility] [id number] [place] [address] 14113- 7009 Jul, [facility] [address] [place] [address] Jul, Uncomplicated alcohol dependence F10.20 [facility] [address] [place] [address] 64183- 7546 Jul, [facility] [id number] [place] [address] 48533- 3019 Jul, [facility] [address] [place] [address] Jul, Uncomplicated alcohol dependence F10.20 [facility] [id number] [place] [address] 28438- 3746 Jul, [facility] [address] [place] [address] Jul, Uncomplicated alcohol dependence F10.20 [facility] [address] [place] [address] 70158- 4487 Jul, [facility] [address] [place] [address] 15 Jul, 2017 Uncomplicated alcohol dependence F10.20 [facility] [address] [place] [address] 12 Jul, 2017 Uncomplicated alcohol dependence F10.20 [facility] [id number] [place] [address] 21108- 6940 08 Jul, 2017 [facility] [address] [place] [address] 08 Jul, 2017 Uncomplicated alcohol dependence F10.20 [facility] [address] [place] [address] 06 Jul, 2017 Uncomplicated alcohol dependence F10.20 [facility] [address] [place] [address] 05 Jul, 2017 Uncomplicated alcohol dependence F10.20 [facility] [address] [place] [address] Jun, Uncomplicated alcohol dependence F10.20 [facility] [address] [place] [address] May, Uncomplicated alcohol dependence F10.20 [facility] [id number] [place] [address] 20647- 1850 May, [facility] [address] 94246- 0972 May, Routine check-up Z00.00 [facility] [address] 17804- 8604 14 May, 2017 [facility] [address] 88259- 6004 13 May, 2017 [facility] [id number] [place] [address] 65141- 5350 29 Feb, 2017 [facility] [address] [place] [address] 29 Feb, 2017 Uncomplicated alcohol dependence F10.20 [facility] [address] [place] [address] 27 Feb, 2016 Uncomplicated alcohol dependence F10.20 [facility] [address] 43609- 2545 21 Sep, 2016 [facility] [address] [place] [address] 21 Feb, 2016 Uncomplicated alcohol dependence F10.20 [facility] [address] [place] [address] 14 Feb, 2016 Uncomplicated alcohol dependence F10.20 [facility] [address] [place] [address] 12 Feb, 2016 Uncomplicated alcohol dependence F10.20 [facility] [id number] [place] [address] 54597- 7687 12 Feb, 2016 [facility] [address] [place] [address] 07 Feb, 2016 Uncomplicated alcohol dependence F10.20 [facility] [address] 97794- 0339 07 Feb, 2016 [facility] [address] [place] [address] 05 Feb, 2016 Uncomplicated alcohol dependence F10.20 [facility] [address] 17315- 6736 05 Feb, 2016 [facility] [address] [place] [address] 30 Jan, 2017 Uncomplicated alcohol dependence F10.20 [facility] [address] [place] [address] Jan, Uncomplicated alcohol dependence F10.20 [facility] [address] [place] [address] Dec, Alcohol abuse F10.10 and Uncomplicated alcohol dependence F10.20 [facility] [address] [place] [address] Dec, Alcohol abuse F10.10 [facility] [address] [place] [address] 18 Dec, 2016 Alcohol abuse F10.10 [facility] [address] [place] [address] Dec, Alcohol abuse F10.10 [facility] [address] [place] [address] Nov, Alcohol abuse F10.10 [facility] [id number] [place] [address] 76654- 5560 Nov, [facility] [address] [place] [address] Nov, Alcohol abuse F10.10 [facility] [address] [place] [address] Nov, Alcohol abuse F10.10 [facility] [address] [address]- 1679 Nov, [facility] [id number] [place] [address] 19580- 7460 Nov, [facility] [id number] [place] [address] 50855- 3687 October, [facility] [address] [place] [address] October, Alcohol abuse F10.10 [facility] [address] [place] [address] 44627- 5507 October, [facility] [id number] [place] [address] 45684- 1340 October, [facility] [id number] [place] [address] 30821- 4213 October, [facility] [address] [place] [address] October, Alcohol abuse F10.10 [facility] [address] [place] [address] October, Alcohol abuse F10.10 [facility] [address] [place] [address] 54875- 3071 Sep, Alcohol abuse F10.10 [facility] [address] [place] [address] 13463- 0457 Sep, [facility] [address] [place] [address] Sep, Alcohol abuse F10.10 [facility] [address] [place] [address] 95366- 8499 Sep, [facility] [address] [place] [address] Sep, Alcohol abuse F10.10 [facility] [address] [address]- 7880 04 Sep, 2016 [facility] [id number] [place] [address] 39787- 1576 03 Sep, 2016 [facility] [id number] [place] [address] 55684- 9509 30 Aug, 2016 [facility] [address] [place] [address] 28 Aug, 2016 Alcohol abuse F10.10 [facility] [id number] [place] [address] 86448- 3293 23 Aug, 2016 [facility] [address] [place] [address] 21 Aug, 2016 Alcohol abuse F10.10 [facility] [id number] [place] [address] 08542- 0740 16 Aug, 2016 [facility] [address] [place] [address] 14 Aug, 2016 Alcohol abuse F10.10 [facility] [id number] [place] [address] 80994- 0045 09 Aug, 2016 [facility] [address] [place] [address] 07 Aug, 2016 Alcohol abuse F10.10 [facility] [id number] [place] [address] 91049- 3431 Aug, [facility] [address] [place] [address] 28 Jul, 2016 Alcohol abuse F10.10 [facility] [address] [place] [address] 24 Jul, 2016 Alcohol abuse F10.10 [facility] [address] [place] [address] 06667- 5285 23 Jul, 2016 [facility] [address] [place] [address] 16 Jul, 2016 Alcohol abuse F10.10 [facility] [address] [place] [address] 07 Jul, 2016 Alcohol abuse F10.10 [facility] [address] [place] [address] Jun, Alcohol abuse F10.10 [facility] [id number] [place] [address] 97229- 6400 Jun, [facility] [address] [place] [address] Jun, Alcohol abuse F10.10 [facility] [address] [place] [address] Jun, Alcohol abuse F10.10 [facility] [address] 90523- 7720 May, Episode of recurrent major depressive disorder, unspecified depression episode severity F33.9 and Alcohol abuse F10.10 [facility] [address] [place] [address] May, Alcohol abuse F10.10 [facility] [address] 80286- 9726 May, [facility] [address] 85378- 1396 May, Episode of recurrent major depressive disorder, unspecified depression episode severity F33.9 and Alcohol abuse F10.10 [facility] [address] [place] [address] Apr, Alcohol abuse F10.10 [facility] [address] [place] [address] Apr, Alcohol abuse F10.10 [facility] [id number] [place] [address] 92240- 2841 Apr, Alcohol abuse F10.10 and Episode of recurrent major depressive disorder, unspecified depression episode severity F33.9 [facility] [id number] [place] [address] 28580- 2664 Apr, [facility] [address] 48815- 7335 Feb, Depressive disorder, not elsewhere classified F32.9 and Uncomplicated alcohol dependence F10.20 IMMUNIZATIONS No Known Immunizations SOCIAL HISTORY Never Assessed REASON FOR VISIT Peer support f/u PLAN OF CARE VITAL SIGNS MEDICATIONS Unknown Medications RESULTS No Results PROCEDURES Procedure Date Ordered Result Body Site Alcohol and/or drug services May 20, 2017 INSTRUCTIONS MEDICATIONS ADMINISTERED No Known Medications MEDICAL (GENERAL) HISTORY Type Description Date Medical History broken neck Medical History Alcoholism Surgical History 2 neck surgeris 2016 Surgical History tonsillectomy Surgical History tubes put in ears Hospitalization History 2016 Hospitalization History tonsilectomy
--- OUTSIDE RECORDS SUMMARY | 2018-01-01 12:56 | XMS REPORT ---
Author Author ARY BURNETT Organization [facility] Address [address] [place] [address] Care Team Providers Care Superintendent Commissary Name Role Phone ARY BURNETT Unavailable PROBLEMS Type Condition ICD9-CM Code FFT09-RT Code Onset Dates Condition Status SNOMED Code Problem Uncomplicated alcohol dependence F10.20 Active 46949180 Problem Episode of recurrent major depressive disorder, unspecified depression episode severity F33.9 Active 541497294 Problem Alcohol abuse F10.10 Active 76668457 ALLERGIES No Information SOCIAL HISTORY Never Assessed PLAN OF CARE Activity Details Follow Up 2 - 3 Days Reason: VITAL SIGNS MEDICATIONS Unknown Medications RESULTS No Results PROCEDURES Procedure Date Ordered Result Body Site Alcohol and/or drug services September 25, 2016 IMMUNIZATIONS No Known Immunizations
--- OUTSIDE RECORDS SUMMARY | 2018-01-01 12:56 | XMS REPORT ---
Author Author ARY BURNETT Organization [facility] Address [address] [place] [address] Care Team Providers Care Calculation Clerk Name Role Phone ARY BURNETT Unavailable PROBLEMS Type Condition ICD9-CM Code [id number] Code Onset Dates Condition Status SNOMED Code Problem Uncomplicated alcohol dependence F10.20 Active 41639223 Problem Episode of recurrent major depressive disorder, unspecified depression episode severity F33.9 Active 736651206 Problem Alcohol abuse F10.10 Active 36366909 ALLERGIES No Information ENCOUNTERS Encounter Location Date Diagnosis [facility] [address] [place] [address] Sep, Uncomplicated alcohol dependence F10.20 [facility] [address] [place] [address] Sep, Uncomplicated alcohol dependence F10.20 [facility] [id number] [place] [address] 81587- 4054 Sep, [facility] [address] [place] [address] Sep, Uncomplicated alcohol dependence F10.20 [facility] [id number] [place] [address] 61572- 0995 Sep, [facility] [address] [place] [address] Sep, Uncomplicated alcohol dependence F10.20 [facility] [id number] [place] [address] 10970- 3878 Sep, [facility] [address] [address] Sep, [facility] [address] [place] [address] Sep, Uncomplicated alcohol dependence F10.20 [facility] [address] 47[address] 3[address] Sep, [facility] [address] [address] Sep, [facility] [id number] [place] [address] 87771- 6262 Sep, [facility] [address] [place] [address] Sep, Uncomplicated alcohol dependence F10.20 [facility] [id number] [place] [address] 96506- 3503 Sep, [facility] [id number] [place] [address] 22271- 8519 30 Aug, 2017 [facility] [id number] [place] [address] 93295- 9561 29 Aug, 2017 [facility] [id number] [place] [address] 20446- 9049 Aug, [facility] [address] [place] [address] 27 Aug, 2017 Uncomplicated alcohol dependence F10.20 [facility] [id number] [place] [address] 63161- 9041 Aug, [facility] [id number] [place] [address] 28361- 4305 Aug, [facility] [id number] [place] [address] 47742- 9734 Aug, [facility] [id number] [place] [address] 49084- 4994 19 Aug, 2017 [facility] [address] [place] [address] 15 Aug, 2017 Uncomplicated alcohol dependence F10.20 [facility] [id number] [place] [address] 73222- 3297 15 Aug, 2017 [facility] [id number] [place] [address] 95929- 6064 15 Aug, 2017 Uncomplicated alcohol dependence F10.20 [facility] [address] [place] [address] Aug, Uncomplicated alcohol dependence F10.20 [facility] [id number] [place] [address] 15226- 7181 Aug, [facility] [address] [place] [address] Aug, Uncomplicated alcohol dependence F10.20 [facility] [id number] [place] [address] 00549- 3744 Aug, [facility] [address] [place] [address] Aug, Uncomplicated alcohol dependence F10.20 [facility] [id number] [place] [address] 87877- 5206 Aug, [facility] [address] [place] [address] Aug, Uncomplicated alcohol dependence F10.20 [facility] [id number] [place] [address] 83646- 1761 Aug, [facility] [address] 28864- 4642 Jul, [facility] [address] 09960- 7596 Jul, [facility] [address] [place] [address] Jul, Uncomplicated alcohol dependence F10.20 [facility] [id number] [place] [address] 98242- 9970 Jul, [facility] [id number] [place] [address] 02223- 8041 Jul, [facility] [address] [place] [address] Jul, Uncomplicated alcohol dependence F10.20 [facility] [id number] [place] [address] 15587- 7308 Jul, [facility] [address] [place] [address] Jul, Uncomplicated alcohol dependence F10.20 [facility] [id number] [place] [address] 32121- 7019 15 Jul, 2017 [facility] [address] [place] [address] 15 Jul, 2017 Uncomplicated alcohol dependence F10.20 [facility] [address] [place] [address] 12 Jul, 2017 Uncomplicated alcohol dependence F10.20 [facility] [address] 73332- 8034 08 Jul, 2017 [facility] [address] [place] [address] 08 Jul, 2017 Uncomplicated alcohol dependence F10.20 [facility] [address] [place] [address] 06 Jul, 2017 Uncomplicated alcohol dependence F10.20 [facility] [address] [place] [address] 05 Jul, 2017 Uncomplicated alcohol dependence F10.20 [facility] [address] [place] [address] Jun, Uncomplicated alcohol dependence F10.20 [facility] [address] [place] [address] May, Uncomplicated alcohol dependence F10.20 [facility] [address] 56326- 8174 May, [facility] [id number] [place] [address] 08733- 7517 May, Routine check-up Z00.00 [facility] [address] 06300- 6151 14 May, 2017 [facility] [id number] [place] [address] 54707- 3150 13 May, 2017 [facility] [address] 10272- 8903 29 Feb, 2017 [facility] [address] [place] [address] 29 Feb, 2017 Uncomplicated alcohol dependence F10.20 [facility] [address] [place] [address] 27 Feb, 2017 Uncomplicated alcohol dependence F10.20 [facility] [address] [address] 21 Feb, 2016 [facility] [address] [place] [address] 21 Feb, 2016 Uncomplicated alcohol dependence F10.20 [facility] [address] [place] [address] 14 Feb, 2016 Uncomplicated alcohol dependence F10.20 [facility] [address] [place] [address] 12 Feb, 2016 Uncomplicated alcohol dependence F10.20 [facility] [id number] [place] [address] 06697 2547 12 Feb, 2016 [facility] [address] [place] [address] 07 Feb, 2016 Uncomplicated alcohol dependence F10.20 [facility] [id number] [place] [address] 47184- 5295 07 Feb, 2016 [facility] [address] [place] [address] 05 Feb, 2016 Uncomplicated alcohol dependence F10.20 [facility] [id number] [place] [address] 26204 2545 05 Feb, 2016 [facility] [address] [place] [address] 30 Jan, 2017 Uncomplicated alcohol dependence F10.20 [facility] [address] [place] [address] Jan, Uncomplicated alcohol dependence F10.20 [facility] [address] [place] [address] Dec, Alcohol abuse F10.10 and Uncomplicated alcohol dependence F10.20 [facility] [address] [place] [address] Dec, Alcohol abuse F10.10 [facility] [address] [place] [address] 18 Dec, 2016 Alcohol abuse F10.10 [facility] [address] [place] [address] Dec, Alcohol abuse F10.10 [facility] [address] [place] [address] Nov, Alcohol abuse F10.10 [facility] [address] [address] Nov, [facility] [address] [place] [address] Nov, Alcohol abuse F10.10 [facility] [address] [place] [address] Nov, Alcohol abuse F10.10 [facility] [id number] [place] [address] 52069- 5587 Nov, [facility] [id number] [place] [address] 19178- 7212 Nov, [facility] [id number] [place] [address] 85580- 0158 October, [facility] [address] [place] [address] October, Alcohol abuse F10.10 [facility] [id number] [place] [address] 74576- 9731 October, [facility] [id number] [place] [address] 38691- 2013 October, [facility] [id number] [place] [address] 04673- 6781 October, [facility] [address] [place] [address] October, Alcohol abuse F10.10 [facility] [address] [place] [address] October, Alcohol abuse F10.10 [facility] [id number] [place] [address] 81521- 8110 Sep, Alcohol abuse F10.10 [facility] [id number] [place] [address] 40525- 3372 Sep, [facility] [address] [place] [address] Sep, Alcohol abuse F10.10 [facility] [id number] [place] [address] 07841- 7259 Sep, [facility] [address] [place] [address] 04 Sep, 2016 Alcohol abuse F10.10 [facility] [id number] [place] [address] 39133- 5455 Sep, [facility] [id number] [place] [address] 09017- 1020 Sep, [facility] [id number] [place] [address] 79249- 2137 30 Aug, 2016 [facility] [address] [place] [address] 28 Aug, 2016 Alcohol abuse F10.10 [facility] [address] 19452- 5147 Aug, [facility] [address] [place] [address] Aug, Alcohol abuse F10.10 [facility] [address] 12740- 7932 16 Aug, 2016 [facility] [address] [place] [address] 14 Aug, 2016 Alcohol abuse F10.10 [facility] [id number] [place] [address] 02079- 4879 09 Aug, 2016 [facility] [address] [place] [address] Aug, Alcohol abuse F10.10 [facility] [id number] [place] [address] 48377- 3654 Aug, [facility] [address] [place] [address] Jul, Alcohol abuse F10.10 [facility] [address] [place] [address] 24 Jul, 2016 Alcohol abuse F10.10 [facility] [id number] [place] [address] 90507- 1114 Jul, [facility] [address] [place] [address] 16 Jul, 2016 Alcohol abuse F10.10 [facility] [address] [place] [address] 07 Jul, 2016 Alcohol abuse F10.10 [facility] [address] [place] [address] Jun, Alcohol abuse F10.10 [facility] [id number] [place] [address] 37049- 0286 Jun, [facility] [address] [place] [address] Jun, Alcohol abuse F10.10 [facility] [address] [place] [address] Jun, Alcohol abuse F10.10 [facility] [id number] [place] [address] 54852- 3179 May, Episode of recurrent major depressive disorder, unspecified depression episode severity F33.9 and Alcohol abuse F10.10 [facility] [address] [place] [address] May, Alcohol abuse F10.10 [facility] [id number] [place] [address] 55961- 5620 May, [facility] [id number] [place] [address] 01823- 2422 May, Episode of recurrent major depressive disorder, unspecified depression episode severity F33.9 and Alcohol abuse F10.10 [facility] [address] [place] [address] 30 Apr, 2016 Alcohol abuse F10.10 [facility] [address] [place] [address] 23 Apr, 2016 Alcohol abuse F10.10 [facility] [id number] [place] [address] 24902- 4184 17 Apr, 2016 Alcohol abuse F10.10 and Episode of recurrent major depressive disorder, unspecified depression episode severity F33.9 [facility] [id number] [place] [address] 19584- 5978 07 Apr, 2016 [facility] [id number] [place] [address] 72324- 3567 29 Feb, 2016 Depressive disorder, not elsewhere classified F32.9 and Uncomplicated alcohol dependence F10.20 IMMUNIZATIONS No Known Immunizations SOCIAL HISTORY Never Assessed REASON FOR VISIT SUBAB F/U PLAN OF CARE Activity Details Follow Up 1 Week Reason: VITAL SIGNS MEDICATIONS Unknown Medications RESULTS No Results PROCEDURES Procedure Date Ordered Result Body Site Alcohol and/or drug services Feb 03, 2017 INSTRUCTIONS MEDICATIONS ADMINISTERED No Known Medications MEDICAL (GENERAL) HISTORY Type Description Date Medical History broken neck Medical History Alcoholism Surgical History 2 neck surgeris 2016 Surgical History tonsillectomy Surgical History tubes put in ears Hospitalization History [facility] 2016 Hospitalization History tonsilectomy
--- OUTSIDE RECORDS SUMMARY | 2018-01-01 12:57 | XMS REPORT ---
Author Author ARY BURNETT Organization [facility] Address [address] [place] [address] Care Team Providers Care Newspaper Writer Name Role Phone ARY BURNETT Unavailable PROBLEMS Type Condition ICD9-CM Code SFX82-VI Code Onset Dates Condition Status SNOMED Code Problem Uncomplicated alcohol dependence F10.20 Active 17263486 Problem Episode of recurrent major depressive disorder, unspecified depression episode severity F33.9 Active 434908309 Problem Alcohol abuse F10.10 Active 88903581 ALLERGIES No Information SOCIAL HISTORY Never Assessed PLAN OF CARE Activity Details Follow Up 1 Week Reason: VITAL SIGNS MEDICATIONS Unknown Medications RESULTS No Results PROCEDURES Procedure Date Ordered Result Body Site Alcohol and/or drug services October 06, 2016 IMMUNIZATIONS No Known Immunizations
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
--- OUTSIDE RECORDS SUMMARY | 2018-01-01 12:58 | XMS REPORT ---
Author Author ARY BURNETT Organization [facility] Address [address] [place] [address] Care Team Providers Care Clinical Documentation Nurse Name Role Phone ARY BURNETT Unavailable PROBLEMS Type Condition ICD9-CM Code TRE98-LQ Code Onset Dates Condition Status SNOMED Code Problem Uncomplicated alcohol dependence F10.20 Active 80488137 Problem Episode of recurrent major depressive disorder, unspecified depression episode severity F33.9 Active 889729147 Problem Alcohol abuse F10.10 Active 01979616 ALLERGIES No Information ENCOUNTERS Encounter Location Date Diagnosis [facility] [id number] [place] [address] 19639- 4499 22 Aug, 2017 [facility] [address] [address]197- [address] 22 Aug, 2017 [facility] [id number] [place] [address] 47337- 2065 20 Aug, 2017 [facility] [address] [place] [address] 19 Aug, 2017 [facility] [address] [place] [address] 15 Aug, 2017 Uncomplicated alcohol dependence F10.20 [facility] [id number] [place] [address] 42873- 1037 15 Aug, 2017 [facility] [id number] [place] [address] 18206- 8832 15 Aug, 2017 Uncomplicated alcohol dependence F10.20 [facility] [address] [place] [address] 13 Aug, 2017 Uncomplicated alcohol dependence F10.20 [facility] [id number] [place] [address] 32763- 8600 13 Aug, 2017 [facility] [address] [place] [address] Aug, Uncomplicated alcohol dependence F10.20 [facility] [id number] [place] [address] 12990- 4290 Aug, [facility] [address] [place] [address] Aug, Uncomplicated alcohol dependence F10.20 [facility] [id number] [place] [address] 93184- 4406 Aug, [facility] [address] [place] [address] Aug, Uncomplicated alcohol dependence F10.20 [facility] [id number] [place] [address] 21664- 5319 Aug, [facility] [address] 19847- 6217 Jul, [facility] [id number] [place] [address] 72368- 8520 Jul, [facility] [address] [place] [address] Jul, Uncomplicated alcohol dependence F10.20 [facility] [id number] [place] [address] 81506- 2697 Jul, [facility] [id number] [place] [address] 21377- 1508 Jul, [facility] [address] [place] [address] Jul, Uncomplicated alcohol dependence F10.20 [facility] [id number] [place] [address] 34337- 8948 Jul, [facility] [address] [place] [address] Jul, Uncomplicated alcohol dependence F10.20 [facility] [id number] [place] [address] 63004- 4140 Jul, [facility] [address] [place] [address] Jul, Uncomplicated alcohol dependence F10.20 [facility] [address] [place] [address] 12 Jul, 2017 Uncomplicated alcohol dependence F10.20 [facility] [id number] [place] [address] 00983- 4821 08 Jul, 2017 [facility] [address] [place] [address] 08 Jul, 2017 Uncomplicated alcohol dependence F10.20 [facility] [address] [place] [address] 06 Jul, 2017 Uncomplicated alcohol dependence F10.20 [facility] [address] [place] [address] 05 Jul, 2017 Uncomplicated alcohol dependence F10.20 [facility] [address] [place] [address] Jun, Uncomplicated alcohol dependence F10.20 [facility] [address] [place] [address] May, Uncomplicated alcohol dependence F10.20 [facility] [address] 15382- 1048 May, [facility] [address] 20618- 0847 15 May, 2017 Routine check-up Z00.00 [facility] [address] 09346- 7887 14 May, 2017 [facility] [id number] [place] [address] 57502- 2647 13 May, 2017 [facility] [address] 12807- 7724 29 Feb, 2017 [facility] [address] [place] [address] 29 Feb, 2017 Uncomplicated alcohol dependence F10.20 [facility] [address] [place] [address] 27 Feb, 2017 Uncomplicated alcohol dependence F10.20 [facility] [address] 19461- 0581 21 Feb, 2017 [facility] [address] [place] [address] 21 Feb, 2016 Uncomplicated alcohol dependence F10.20 [facility] [address] [place] [address] 14 Feb, 2016 Uncomplicated alcohol dependence F10.20 [facility] [address] [place] [address] 12 Feb, 2016 Uncomplicated alcohol dependence F10.20 [facility] [place] [address] [address] 12 Feb, 2017 [facility] [address] [place] [address] 07 Feb, 2016 Uncomplicated alcohol dependence F10.20 [facility] [place] [address] [place] [address] 41668- 4655 07 Feb, 2016 [facility] [address] [place] [address] 05 Feb, 2017 Uncomplicated alcohol dependence F10.20 [facility] [place] [id number] [place] [address] 24920- 6807 05 Feb, 2017 [facility] [address] [place] [address] Jan, Uncomplicated alcohol dependence F10.20 [facility] [address] [place] [address] Jan, Uncomplicated alcohol dependence F10.20 [facility] [address] [place] [address] Dec, Alcohol abuse F10.10 and Uncomplicated alcohol dependence F10.20 [facility] [address] [place] [address] Dec, Alcohol abuse F10.10 [facility] [address] [place] [address] 18 Dec, 2016 Alcohol abuse F10.10 [facility] [address] [place] [address] Dec, Alcohol abuse F10.10 [facility] [address] [place] [address] Nov, Alcohol abuse F10.10 [facility] [place] [address] [place] [address] 45257- 0317 13 Nov, 2016 [facility] [address] [place] [address] 12 Nov, 2016 Alcohol abuse F10.10 [facility] [address] [place] [address] Nov, Alcohol abuse F10.10 [facility] [address] [address] Nov, [facility] [address] [place] [address] 13639- 9691 Nov, [facility] [id number] [place] [address] 40008- 3341 October, [facility] [address] [place] [address] October, Alcohol abuse F10.10 [facility] [address] [place] [address] 91598- 0005 October, [facility] [id number] [place] [address] 76943- 1333 October, [facility] [id number] [place] [address] 84843- 4802 October, [facility] [address] [place] [address] October, Alcohol abuse F10.10 [facility] [address] [place] [address] October, Alcohol abuse F10.10 [facility] [address] [place] [address] 36110- 5246 Sep, Alcohol abuse F10.10 [facility] [address] [address] Sep, [facility] [address] [place] [address] Sep, Alcohol abuse F10.10 [facility] [address] [address] Sep, [facility] [address] [place] [address] Sep, Alcohol abuse F10.10 [facility] [address] [place] [address] 31175- 9764 Sep, [facility] [id number] [address] 8571 03 Sep, 2016 [facility] [place] [id number] [place] [address] 61511- 0566 30 Aug, 2016 [facility] [address] [place] [address] 28 Aug, 2016 Alcohol abuse F10.10 [facility] [place] [id number] [place] [address] 55881- 0646 Aug, [facility] [address] [place] [address] 21 Aug, 2016 Alcohol abuse F10.10 [facility] [place] [id number] [place] [address] 80972- 6566 16 Aug, 2016 [facility] [address] [place] [address] 14 Aug, 2016 Alcohol abuse F10.10 [facility] [place] [id number] [place] [address] 13781- 9445 Aug, [facility] [address] [place] [address] Aug, Alcohol abuse F10.10 [facility] [place] [id number] [place] [address] 03799- 3505 Aug, [facility] [address] [place] [address] Jul, Alcohol abuse F10.10 [facility] [address] [place] [address] Jul, Alcohol abuse F10.10 [facility] [place] [id number] [place] [address] 87394- 1783 Jul, [facility] [address] [place] [address] 16 Jul, 2016 Alcohol abuse F10.10 [facility] [address] [place] [address] 07 Jul, 2016 Alcohol abuse F10.10 [facility] [address] [place] [address] Jun, Alcohol abuse F10.10 [facility] [place] [id number] [place] [address] 36733- 8438 Jun, [facility] [address] [place] [address] Jun, Alcohol abuse F10.10 [facility] [address] [place] [address] Jun, Alcohol abuse F10.10 [facility] [id number] [place] [address] 32727- 2186 May, Episode of recurrent major depressive disorder, unspecified depression episode severity F33.9 and Alcohol abuse F10.10 [facility] [address] [place] [address] May, Alcohol abuse F10.10 [facility] [id number] [place] [address] 93433- 9755 May, [facility] [id number] [place] [address] 30319- 1515 May, Episode of recurrent major depressive disorder, unspecified depression episode severity F33.9 and Alcohol abuse F10.10 [facility] [address] [place] [address] Apr, Alcohol abuse F10.10 [facility] [address] [place] [address] Apr, Alcohol abuse F10.10 [facility] [id number] [place] [address] 72586- 6109 Apr, Alcohol abuse F10.10 and Episode of recurrent major depressive disorder, unspecified depression episode severity F33.9 [facility] [address] [place] [address] 42317- 8903 Apr, [facility] [id number] [place] [address] 60611- 0089 Feb, Depressive disorder, not elsewhere classified F32.9 and Uncomplicated alcohol dependence F10.20 IMMUNIZATIONS No Known Immunizations SOCIAL HISTORY Never Assessed REASON FOR VISIT SUBAB F/U PLAN OF CARE Activity Details Follow Up Wednesday11/16/16, 5:30pm-6pm Reason:subab f/u VITAL SIGNS MEDICATIONS Unknown Medications RESULTS No Results PROCEDURES Procedure Date Ordered Result Body Site Alcohol and/or drug services November 09, 2016 INSTRUCTIONS MEDICATIONS ADMINISTERED No Known Medications MEDICAL (GENERAL) HISTORY Type Description Date Medical History broken neck Medical History Alcoholism Surgical History 2 neck surgeris 2016 Surgical History tonsillectomy Surgical History tubes put in ears Hospitalization History [facility] 2016 Hospitalization History tonsilectomy
--- OUTSIDE RECORDS SUMMARY | 2018-01-01 12:58 | XMS REPORT ---
Author Author ARY BURNETT Organization [facility] Address [address] [place] [address] Care Team Providers Care Investigation Specialist Name Role Phone ARY BURNETT Unavailable PROBLEMS Type Condition ICD9-CM Code AMK41-AD Code Onset Dates Condition Status SNOMED Code Problem Uncomplicated alcohol dependence F10.20 Active 66522114 Problem Episode of recurrent major depressive disorder, unspecified depression episode severity F33.9 Active 740837657 Problem Alcohol abuse F10.10 Active 63560915 ALLERGIES No Information ENCOUNTERS Encounter Location Date Diagnosis [facility] [address] [place] [address] Sep, [facility] [address] [place] [address] Sep, Uncomplicated alcohol dependence F10.20 [facility] [id number] [place] [address] 46598- 0100 Sep, [facility] [address] [place] [address] Sep, Uncomplicated alcohol dependence F10.20 [facility] [id number] [place] [address] 87416- 3156 Sep, [facility] [address] [place] [address] Sep, Uncomplicated alcohol dependence F10.20 [facility] [id number] [place] [address] 09050- 6587 Sep, [facility] [address] [address] Sep, [facility] [address] [place] [address] Sep, Uncomplicated alcohol dependence F10.20 [facility] [address] 757[address]459 Sep, [facility] [id number] [place] [address] 98723- 5242 Sep, [facility] [id number] [place] [address] 065114- 4621 Sep, [facility] [address] [place] [address] Sep, Uncomplicated alcohol dependence F10.20 [facility] [id number] [place] [address] 16571- 6297 Sep, [facility] [id number] [place] [address] 26031- 0838 30 Aug, 2017 [facility] [id number] [place] [address] 65042- 6486 29 Aug, 2017 [facility] [id number] [place] [address] 69722- 6202 27 Aug, 2017 [facility] [address] [place] [address] 27 Aug, 2017 Uncomplicated alcohol dependence F10.20 [facility] [id number] [place] [address] 60468- 6897 22 Aug, 2017 [facility] [id number] [place] [address] 14713- 5316 22 Aug, 2017 [facility] [id number] [place] [address] 43432- 3542 20 Aug, 2017 [facility] [id number] [place] [address] 42829- 1348 19 Aug, 2017 [facility] [address] [place] [address] 15 Aug, 2017 Uncomplicated alcohol dependence F10.20 [facility] [id number] [place] [address] 42785- 5217 15 Aug, 2017 [facility] [id number] [place] [address] 81071- 4473 15 Aug, 2017 Uncomplicated alcohol dependence F10.20 [facility] [address] [place] [address] Aug, Uncomplicated alcohol dependence F10.20 [facility] [id number] [place] [address] 44192- 7641 Aug, [facility] [address] [place] [address] Aug, Uncomplicated alcohol dependence F10.20 [facility] [id number] [place] [address] 01485- 9656 Aug, [facility] [address] [place] [address] Aug, Uncomplicated alcohol dependence F10.20 [facility] [id number] [place] [address] 35046- 9499 Aug, [facility] [address] [place] [address] Aug, Uncomplicated alcohol dependence F10.20 [facility] [id number] [place] [address] 07203- 0630 Aug, [facility] [id number] [place] [address] 76890- 4160 Jul, [facility] [id number] [place] [address] 56078- 6106 Jul, [facility] [address] [place] [address] Jul, Uncomplicated alcohol dependence F10.20 [facility] [id number] [place] [address] 81263- 0352 Jul, [facility] [id number] [place] [address] 17191- 8973 Jul, [facility] [address] [place] [address] Jul, Uncomplicated alcohol dependence F10.20 [facility] [id number] [place] [address] 16918- 9369 Jul, [facility] [address] [place] [address] Jul, Uncomplicated alcohol dependence F10.20 [facility] [address] [place] [address] 2169 15 Jul, 2017 [facility] [address] [place] [address] 15 Jul, 2017 Uncomplicated alcohol dependence F10.20 [facility] [address] [place] [address] 12 Jul, 2017 Uncomplicated alcohol dependence F10.20 [facility] [address] [address] 2244 08 Jul, 2017 [facility] [address] [place] [address] 08 Jul, 2017 Uncomplicated alcohol dependence F10.20 [facility] [address] [place] [address] 06 Jul, 2017 Uncomplicated alcohol dependence F10.20 [facility] [address] [place] [address] 05 Jul, 2017 Uncomplicated alcohol dependence F10.20 [facility] [address] [place] [address] Jun, Uncomplicated alcohol dependence F10.20 [facility] [address] [place] [address] May, Uncomplicated alcohol dependence F10.20 [facility] [address] 35689- 9942 May, [facility] [id number] [place] [address] 19992- 1896 May, Routine check-up Z00.00 [facility] [address] 41366- 2364 14 May, 2017 [facility] [address] 70193- 2520 13 May, 2017 [facility] [address] 41807- 6406 29 Feb, 2017 [facility] [address] [place] [address] Feb, Uncomplicated alcohol dependence F10.20 [facility] [address] [place] [address] 27 Feb, 2017 Uncomplicated alcohol dependence F10.20 [facility] [address] [place] [address] 21 Feb, 2016 [facility] [address] [place] [address] 21 Feb, 2016 Uncomplicated alcohol dependence F10.20 [facility] [address] [place] [address] 14 Feb, 2016 Uncomplicated alcohol dependence F10.20 [facility] [address] [place] [address] 12 Feb, 2016 Uncomplicated alcohol dependence F10.20 [facility] [address] [place] [address] 12 Feb, 2016 [facility] [address] [place] [address] 07 Feb, 2016 Uncomplicated alcohol dependence F10.20 [facility] [id number] [place] [address] 31144- 2949 07 Feb, 2016 [facility] [address] [place] [address] 05 Feb, 2016 Uncomplicated alcohol dependence F10.20 [facility] [id number] [place] [address] 22357- 4113 05 Feb, 2016 [facility] [address] [place] [address] 30 Jan, 2017 Uncomplicated alcohol dependence F10.20 [facility] [address] [place] [address] Jan, Uncomplicated alcohol dependence F10.20 [facility] [address] [place] [address] Dec, Alcohol abuse F10.10 and Uncomplicated alcohol dependence F10.20 [facility] [address] [place] [address] Dec, Alcohol abuse F10.10 [facility] [address] [place] [address] Dec, Alcohol abuse F10.10 [facility] [address] [place] [address] Dec, Alcohol abuse F10.10 [facility] [address] [place] [address] Nov, Alcohol abuse F10.10 [facility] [address] [address] Nov, [facility] [address] [place] [address] Nov, Alcohol abuse F10.10 [facility] [address] [place] [address] Nov, Alcohol abuse F10.10 [facility] [id number] [place] [address] 70287- 1621 Nov, [facility] [id number] [place] [address] 57804- 6840 Nov, [facility] [id number] [place] [address] 70505- 5048 October, [facility] [address] [place] [address] October, Alcohol abuse F10.10 [facility] [id number] [place] [address] 14080- 5472 October, [facility] [id number] [place] [address] 04593- 7093 October, [facility] [id number] [place] [address] 09772- 7877 October, [facility] [address] [place] [address] October, Alcohol abuse F10.10 [facility] [address] [place] [address] October, Alcohol abuse F10.10 [facility] [id number] [place] [address] 03795- 4152 Sep, Alcohol abuse F10.10 [facility] [id number] [place] [address] 97490- 6093 Sep, [facility] [address] [place] [address] Sep, Alcohol abuse F10.10 [facility] [address] [place] [address] 18312- 7631 Sep, [facility] [address] [place] [address] Sep, Alcohol abuse F10.10 [facility] [address] [place] [address] 67090- 9492 Sep, [facility] [id number] [place] [address] 74229- 1008 Sep, [facility] [id number] [place] [address] 77298- 3314 30 Aug, 2016 [facility] [address] [place] [address] Aug, Alcohol abuse F10.10 [facility] [id number] [place] [address] 25422- 2068 Aug, [facility] [address] [place] [address] Aug, Alcohol abuse F10.10 [facility] [id number] [place] [address] 17098- 0752 16 Aug, 2016 [facility] [address] [place] [address] 14 Aug, 2016 Alcohol abuse F10.10 [facility] [id number] [place] [address] 90179- 8226 Aug, [facility] [address] [place] [address] Aug, Alcohol abuse F10.10 [facility] [id number] [place] [address] 06881- 2824 Aug, [facility] [address] [place] [address] Jul, Alcohol abuse F10.10 [facility] [address] [place] [address] Jul, Alcohol abuse F10.10 [facility] [id number] [place] [address] 64479- 3499 23 Jul, 2016 [facility] [address] [place] [address] 16 Jul, 2016 Alcohol abuse F10.10 [facility] [address] [place] [address] Jul, Alcohol abuse F10.10 [facility] [address] [place] [address] Jun, Alcohol abuse F10.10 [facility] [id number] [place] [address] 71376- 4009 Jun, [facility] [address] [place] [address] Jun, Alcohol abuse F10.10 [facility] [address] [place] [address] Jun, Alcohol abuse F10.10 [facility] [id number] [place] [address] 72734- 4388 May, Episode of recurrent major depressive disorder, unspecified depression episode severity F33.9 and Alcohol abuse F10.10 [facility] [address] [place] [address] May, Alcohol abuse F10.10 [facility] [id number] [place] [address] 69890- 0229 May, [facility] [id number] [place] [address] 03503- 0857 May, Episode of recurrent major depressive disorder, unspecified depression episode severity F33.9 and Alcohol abuse F10.10 [facility] [address] [place] [address] Apr, Alcohol abuse F10.10 [facility] [address] [place] [address] Apr, Alcohol abuse F10.10 [facility] [id number] [place] [address] 84249- 1862 Apr, Alcohol abuse F10.10 and Episode of recurrent major depressive disorder, unspecified depression episode severity F33.9 [facility] [id number] [place] [address] 17192- 5840 07 Apr, 2016 [facility] [id number] [place] [address] 07390- 6967 29 Feb, 2016 Depressive disorder, not elsewhere classified F32.9 and Uncomplicated alcohol dependence F10.20 IMMUNIZATIONS No Known Immunizations SOCIAL HISTORY Never Assessed REASON FOR VISIT SUBAB-F/U PLAN OF CARE Activity Details Follow Up 2 - 3 Days Reason: VITAL SIGNS MEDICATIONS Unknown Medications RESULTS No Results PROCEDURES Procedure Date Ordered Result Body Site Alcohol and/or drug services Jan 29, 2017 INSTRUCTIONS MEDICATIONS ADMINISTERED No Known Medications MEDICAL (GENERAL) HISTORY Type Description Date Medical History broken neck Medical History Alcoholism Surgical History 2 neck surgeris 2016 Surgical History tonsillectomy Surgical History tubes put in ears Hospitalization History [facility] 2016 Hospitalization History tonsilectomy
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
--- OUTSIDE RECORDS SUMMARY | 2018-01-01 12:58 | XMS REPORT ---
Author Author ARY BURNETT Organization [facility] Address [address] [place] [address] Care Team Providers Care Perforating Machine Operator Name Role Phone ARY BURNETT Unavailable PROBLEMS Type Condition ICD9-CM Code ESH20-QM Code Onset Dates Condition Status SNOMED Code Problem Uncomplicated alcohol dependence F10.20 Active 14495695 Problem Episode of recurrent major depressive disorder, unspecified depression episode severity F33.9 Active 031793976 Problem Alcohol abuse F10.10 Active 26878394 ALLERGIES No Information SOCIAL HISTORY Never Assessed PLAN OF CARE VITAL SIGNS MEDICATIONS Unknown Medications RESULTS No Results PROCEDURES No Known procedures IMMUNIZATIONS No Known Immunizations
--- OUTSIDE RECORDS SUMMARY | 2018-01-01 12:59 | XMS REPORT ---
Author Author ARY BURNETT Organization [facility] Address [address] [place] [address] Care Team Providers Care Staffing Program Manager Name Role Phone ARY BURNETT Unavailable PROBLEMS Type Condition ICD9-CM Code HKM83-CK Code Onset Dates Condition Status SNOMED Code Problem Uncomplicated alcohol dependence F10.20 Active 19495750 Problem Episode of recurrent major depressive disorder, unspecified depression episode severity F33.9 Active 812859381 Problem Alcohol abuse F10.10 Active 73723714 ALLERGIES No Information ENCOUNTERS Encounter Location Date Diagnosis [facility] [address] [place] [address] Sep, [facility] [address] [place] [address] Sep, Uncomplicated alcohol dependence F10.20 [facility] [id number] [place] [address] 88604- 2142 Sep, [facility] [address] [place] [address] Sep, Uncomplicated alcohol dependence F10.20 [facility] [id number] [place] [address] 97476- 0472 Sep, [facility] [address] [place] [address] Sep, Uncomplicated alcohol dependence F10.20 [facility] [id number] [place] [address] 10978- 6138 Sep, [facility] [address] [address] Sep, [facility] [address] [place] [address] Sep, Uncomplicated alcohol dependence F10.20 [facility] [address] 65971- 9334 Sep, [facility] [id number] [place] [address] 93566- 2906 Sep, [facility] [id number] [place] [address] 298938- 7154 Sep, [facility] [address] [place] [address] Sep, Uncomplicated alcohol dependence F10.20 [facility] [id number] [place] [address] 81012- 8424 Sep, [facility] [id number] [place] [address] 94154- 6256 30 Aug, 2017 [facility] [id number] [place] [address] 02877- 6438 29 Aug, 2017 [facility] [id number] [place] [address] 92362- 1798 27 Aug, 2017 [facility] [address] [place] [address] 27 Aug, 2017 Uncomplicated alcohol dependence F10.20 [facility] [id number] [place] [address] 46118- 2720 22 Aug, 2017 [facility] [id number] [place] [address] 83986- 3005 22 Aug, 2017 [facility] [id number] [place] [address] 99105- 0180 20 Aug, 2017 [facility] [id number] [place] [address] 64250- 7294 19 Aug, 2017 [facility] [address] [place] [address] 15 Aug, 2017 Uncomplicated alcohol dependence F10.20 [facility] [id number] [place] [address] 36406- 6482 15 Aug, 2017 [facility] [id number] [place] [address] 50253- 4901 15 Aug, 2017 Uncomplicated alcohol dependence F10.20 [facility] [address] [place] [address] Aug, Uncomplicated alcohol dependence F10.20 [facility] [id number] [place] [address] 84734- 4717 Aug, [facility] [address] [place] [address] Aug, Uncomplicated alcohol dependence F10.20 [facility] [id number] [place] [address] 18330- 1751 Aug, [facility] [address] [place] [address] Aug, Uncomplicated alcohol dependence F10.20 [facility] [id number] [place] [address] 61294- 1166 Aug, [facility] [address] [place] [address] Aug, Uncomplicated alcohol dependence F10.20 [facility] [id number] [place] [address] 34103- 8629 Aug, [facility] [id number] [place] [address] 00805- 3063 Jul, [facility] [id number] [place] [address] 80285- 8207 Jul, [facility] [address] [place] [address] Jul, Uncomplicated alcohol dependence F10.20 [facility] [id number] [place] [address] 81252- 5601 Jul, [facility] [id number] [place] [address] 13480- 4243 Jul, [facility] [address] [place] [address] Jul, Uncomplicated alcohol dependence F10.20 [facility] [id number] [place] [address] 89695- 9145 Jul, [facility] [address] [place] [address] Jul, Uncomplicated alcohol dependence F10.20 [facility] [address] [place] [address] 1407 15 Jul, 2017 [facility] [address] [place] [address] 15 Jul, 2017 Uncomplicated alcohol dependence F10.20 [facility] [address] [place] [address] 12 Jul, 2017 Uncomplicated alcohol dependence F10.20 [facility] [address] 27078- 3728 08 Jul, 2017 [facility] [address] [place] [address] 08 Jul, 2017 [facility]complicated alcohol dependence F10.20 [facility] [address] [place] [address] 06 Jul, 2017 Uncomplicated alcohol dependence F10.20 [facility] [address] [place] [address] 05 Jul, 2017 Uncomplicated alcohol dependence F10.20 [facility] [address] [place] [address] Jun, Uncomplicated alcohol dependence F10.20 [facility] [address] [place] [address] May, Uncomplicated alcohol dependence F10.20 [facility] [address] 18514- 2870 May, [facility] [id number] [place] [address] 23357- 4091 May, Routine check-up Z00.00 [facility] [address] 35472- 8620 14 May, 2017 [facility] [address] 73004- 4290 13 May, 2017 [facility] [address] 75292- 4051 29 Feb, 2017 [facility] [address] [place] [address] Feb, Uncomplicated alcohol dependence F10.20 [facility] [address] [place] [address] 27 Feb, 2017 Uncomplicated alcohol dependence F10.20 [facility] [address] [address] 6617 21 Feb, 2016 [facility] [address] [place] [address] 21 Feb, 2016 Uncomplicated alcohol dependence F10.20 [facility] [address] [place] [address] 14 Feb, 2016 Uncomplicated alcohol dependence F10.20 [facility] [address] [place] [address] 12 Feb, 2016 [facility]complicated alcohol dependence F10.20 [facility] [address] [address] 6838 12 Feb, 2016 [facility] [address] [place] [address] 07 Feb, 2016 Uncomplicated alcohol dependence F10.20 [facility] [id number] [place] [address] 60767- 2567 07 Feb, 2016 [facility] [address] [place] [address] 05 Feb, 2016 Uncomplicated alcohol dependence F10.20 [facility] [place] [id number] [place] [address] 04596- 7097 05 Feb, 2016 [facility] [address] [place] [address] 30 Jan, 2017 Uncomplicated alcohol dependence F10.20 [facility] [address] [place] [address] Jan, Uncomplicated alcohol dependence F10.20 [facility] [address] [place] [address] Dec, Alcohol abuse F10.10 and Uncomplicated alcohol dependence F10.20 [facility] [address] [place] [address] Dec, Alcohol abuse F10.10 [facility] [address] [place] [address] Dec, Alcohol abuse F10.10 [facility] [address] [place] [address] Dec, Alcohol abuse F10.10 [facility] [address] [place] [address] Nov, Alcohol abuse F10.10 [facility] [place] [id number] [address] 6748 Nov, [facility] [address] [place] [address] Nov, Alcohol abuse F10.10 [facility] [address] [place] [address] Nov, Alcohol abuse F10.10 [facility] [id number] [place] [address] 49796- 1607 Nov, [facility] [place] [id number] [place] [address] 61283- 1007 Nov, [facility] [place] [id number] [place] [address] 16415- 9948 October, [facility] [address] [place] [address] October, Alcohol abuse F10.10 [facility] [id number] [place] [address] 92089- 1153 October, [facility] [place] [id number] [place] [address] 40222- 8330 October, [facility] [id number] [place] [address] 23397- 7728 October, [facility] [address] [place] [address] October, Alcohol abuse F10.10 [facility] [address] [place] [address] October, Alcohol abuse F10.10 [facility] [id number] [place] [address] 50494- 8776 Sep, Alcohol abuse F10.10 [facility] [id number] [place] [address] 88708- 2591 Sep, [facility] [address] [place] [address] Sep, Alcohol abuse F10.10 [facility] [id number] [place] [address] 93148- 5586 Sep, [facility] [address] [place] [address] Sep, Alcohol abuse F10.10 [facility] [place] [id number] [place] [address] 14768- 7079 Sep, [facility] [place] [id number] [place] [address] 16843- 3668 Sep, [facility] [place] [id number] [place] [address] 59802- 2549 30 Aug, 2016 [facility] [address] [place] [address] Aug, Alcohol abuse F10.10 [facility] [id number] [place] [address] 14113- 7636 Aug, [facility] [address] [place] [address] Aug, Alcohol abuse F10.10 [facility] [place] [id number] [place] [address] 47018- 8380 16 Aug, 2016 [facility] [address] [place] [address] 14 Aug, 2016 Alcohol abuse F10.10 [facility] [place] [id number] [place] [address] 35601- 3512 Aug, [facility] [address] [place] [address] Aug, Alcohol abuse F10.10 [facility] [place] [id number] [place] [address] 04075- 7427 Aug, [facility] [address] [place] [address] Jul, Alcohol abuse F10.10 [facility] [address] [place] [address] Jul, Alcohol abuse F10.10 [facility] [place] [id number] [place] [address] 29233- 0286 23 Jul, 2016 [facility] [address] [place] [address] 16 Jul, 2016 Alcohol abuse F10.10 [facility] [address] [place] [address] Jul, Alcohol abuse F10.10 [facility] [address] [place] [address] Jun, Alcohol abuse F10.10 [facility] [id number] [place] [address] 86539- 6929 Jun, [facility] [address] [place] [address] Jun, Alcohol abuse F10.10 [facility] [address] [place] [address] Jun, Alcohol abuse F10.10 [facility] [id number] [place] [address] 65211- 4763 May, Episode of recurrent major depressive disorder, unspecified depression episode severity F33.9 and Alcohol abuse F10.10 [facility] [address] [place] [address] May, Alcohol abuse F10.10 [facility] [id number] [place] [address] 00528- 9480 May, [facility] [id number] [place] [address] 50775- 0407 May, Episode of recurrent major depressive disorder, unspecified depression episode severity F33.9 and Alcohol abuse F10.10 [facility] [address] [place] [address] Apr, Alcohol abuse F10.10 [facility] [address] [place] [address] Apr, Alcohol abuse F10.10 [facility] [id number] [place] [address] 38048- 1443 Apr, Alcohol abuse F10.10 and Episode of recurrent major depressive disorder, unspecified depression episode severity F33.9 [facility] [id number] [place] [address] 95811- 4619 07 Apr, 2016 [facility] [id number] [place] [address] 76321- 3173 29 Feb, 2016 Depressive disorder, not elsewhere [...] History tubes put in ears Hospitalization History [facility] 2016 Hospitalization History tonsilectomy
--- OUTSIDE RECORDS SUMMARY | 2018-01-01 13:00 | XMS REPORT ---
Author Author ARY BURNETT Organization [facility] Address [address] [place] [address] Care Team Providers Care Business Project Manager Name Role Phone ARY BURNETT Unavailable PROBLEMS Type Condition ICD9-CM Code QAS75-XT Code Onset Dates Condition Status SNOMED Code Problem Uncomplicated alcohol dependence F10.20 Active 77359831 Problem Episode of recurrent major depressive disorder, unspecified depression episode severity F33.9 Active 601190644 Problem Alcohol abuse F10.10 Active 97406349 ALLERGIES No Information ENCOUNTERS Encounter Location Date Diagnosis [facility] [address] [place] [address] Sep, [facility] [address] [place] [address] Sep, Uncomplicated alcohol dependence F10.20 [facility] [id number] [place] [address] 88513- [phone] Sep, [facility] [address] [place] [address] Sep, Uncomplicated alcohol dependence F10.20 [facility] [id number] [place] [address] 56283- [phone] Sep, [facility] [address] [place] [address] Sep, Uncomplicated alcohol dependence F10.20 [facility] [id number] [place] [address] 28512- [phone] Sep, [facility] [address] [address] Sep, [facility] [address] [place] [address] Sep, Uncomplicated alcohol dependence F10.20 [facility] [address] [address]67 Sep, [facility] [id number] [place] [address] 61415- [phone] Sep, [facility] [id number] [place] [address] [phone] Sep, [facility] [address] [place] [address] Sep, Uncomplicated alcohol dependence F10.20 [facility] [id number] [place] [address] [phone]- [phone] Sep, [facility] [id number] [place] [address] [phone]- [phone] 30 Aug, 2017 [facility] [id number] [place] [address] 52926- [phone] 29 Aug, 2017 [facility] [id number] [place] [address] 73561- 1201 27 Aug, 2017 [facility] [address] [place] [address] 27 Aug, 2017 Uncomplicated alcohol dependence F10.20 [facility] [id number] [place] [address] 30300- [phone] 22 Aug, 2017 [facility] [id number] [place] [address] 44063- [phone] 22 Aug, 2017 [facility] [id number] [place] [address] 82917- [phone] 20 Aug, 2017 [facility] [address] [place] [address] 41045- [phone] 19 Aug, 2017 [facility] [address] [place] [address] 15 Aug, 2017 Uncomplicated alcohol dependence F10.20 [facility] [id number] [place] [address] [phone]- [phone] 15 Aug, 2017 [facility] [address] [place] [address] 00521- [phone] 15 Aug, 2017 Uncomplicated alcohol dependence F10.20 [facility] [address] [place] [address] Aug, Uncomplicated alcohol dependence F10.20 [facility] [id number] [place] [address] 25569- [phone] Aug, [facility] [address] [place] [address] Aug, Uncomplicated alcohol dependence F10.20 [facility] [id number] [place] [address] 37923- [phone] Aug, [facility] [address] [place] [address] Aug, Uncomplicated alcohol dependence F10.20 [facility] [id number] [place] [address] 71891- [phone] Aug, [facility] [address] [place] [address] Aug, Uncomplicated alcohol dependence F10.20 [facility] [id number] [place] [address] 42989- [phone] Aug, [facility] [id number] [place] [address] 27031- [phone] Jul, [facility] [id number] [place] [address] 00011- [phone] Jul, [facility] [address] [place] [address] Jul, Uncomplicated alcohol dependence F10.20 [facility] [id number] [place] [address] 35814- 8113 Jul, [facility] [id number] [place] [address] 50279- 0427 Jul, [facility] [address] [place] [address] Jul, Uncomplicated alcohol dependence F10.20 [facility] [id number] [place] [address] 57521- 1781 Jul, [facility] [address] [place] [address] Jul, Uncomplicated alcohol dependence F10.20 [facility] [address] [place] [address] 0863 15 Jul, 2017 [facility] [address] [place] [address] 15 Jul, 2017 Uncomplicated alcohol dependence F10.20 [facility] [address] [place] [address] 12 Jul, 2017 Uncomplicated alcohol dependence F10.20 [facility] [address] [address] 08 Jul, 2017 [facility] [address] [place] [address] 08 Jul, 2017 Uncomplicated alcohol dependence F10.20 [facility] [address] [place] [address] 06 Jul, 2017 Uncomplicated alcohol dependence F10.20 [facility] [address] [place] [address] 05 Jul, 2017 Uncomplicated alcohol dependence F10.20 [facility] [address] [place] [address] Jun, Uncomplicated alcohol dependence F10.20 [facility] [address] [place] [address] May, Uncomplicated alcohol dependence F10.20 [facility] [address] 58989- 1178 May, [facility] [id number] [place] [address] 39347- 6803 May, Routine check-up Z00.00 [facility] [address] 19197- 6543 14 May, 2017 [facility] [address] 59273- 1114 13 May, 2017 [facility] [address] 96203- 5787 29 Feb, 2017 [facility] [address] [place] [address] Feb, Uncomplicated alcohol dependence F10.20 [facility] [address] [place] [address] 27 Feb, 2017 Uncomplicated alcohol dependence F10.20 [facility] [address] [place] [address] 21 Feb, 2016 [facility] [address] [place] [address] 21 Feb, 2016 Uncomplicated alcohol dependence F10.20 [facility] [address] [place] [address] 14 Feb, 2016 Uncomplicated alcohol dependence F10.20 [facility] [address] [place] [address] 12 Feb, 2016 Uncomplicated alcohol dependence F10.20 [facility] [address] [address] 20[address] 12 Feb, 2016 [facility] [address] [place] [address] 07 Feb, 2016 Uncomplicated alcohol dependence F10.20 [facility] [id number] [place] [address] 73346- 8327 07 Feb, 2016 [facility] [address] [place] [address] 05 Feb, 2016 Uncomplicated alcohol dependence F10.20 [facility] [id number] [place] [address] 40961- 2340 05 Feb, 2016 [facility] [address] [place] [address] 30 Jan, 2017 Uncomplicated alcohol dependence F10.20 [facility] [address] [place] [address] Jan, Uncomplicated alcohol dependence F10.20 [facility] [address] [place] [address] Dec, Alcohol abuse F10.10 and Uncomplicated alcohol dependence F10.20 [facility] [address] [place] [address] Dec, Alcohol abuse F10.10 [facility] [address] [place] [address] Dec, Alcohol abuse F10.10 [facility] [address] [place] [address] Dec, Alcohol abuse F10.10 [facility] [address] [place] [address] Nov, Alcohol abuse F10.10 [facility] [id number] [address] Nov, [facility] [address] [place] [address] Nov, Alcohol abuse F10.10 [facility] [address] [place] [address] Nov, Alcohol abuse F10.10 [facility] [id number] [place] [address] 30682- 6269 Nov, [facility] [id number] [place] [address] 56141- 0948 Nov, [facility] [id number] [place] [address] 90505- 1424 October, [facility] [address] [place] [address] October, Alcohol abuse F10.10 [facility] [id number] [place] [address] 63330- 7781 October, [facility] [id number] [place] [address] 01008- 5085 October, [facility] [id number] [place] [address] 68908- 5439 October, [facility] [address] [place] [address] October, Alcohol abuse F10.10 [facility] [address] [place] [address] October, Alcohol abuse F10.10 [facility] [id number] [place] [address] 68434- 8917 Sep, Alcohol abuse F10.10 [facility] [id number] [place] [address] 29886- 2839 Sep, [facility] [address] [place] [address] Sep, Alcohol abuse F10.10 [facility] [address] [place] [address] 20765- 8682 Sep, [facility] [address] [place] [address] Sep, Alcohol abuse F10.10 [facility] [address] [place] [address] 12754- 7318 Sep, [facility] [id number] [place] [address] 03626- 6475 Sep, [facility] [id number] [place] [address] 79295- 9062 30 Aug, 2016 [facility] [address] [place] [address] Aug, Alcohol abuse F10.10 [facility] [id number] [place] [address] 14879- 6619 Aug, [facility] [address] [place] [address] Aug, Alcohol abuse F10.10 [facility] [id number] [place] [address] 71737- 3097 16 Aug, 2016 [facility] [address] [place] [address] 14 Aug, 2016 Alcohol abuse F10.10 [facility] [id number] [place] [address] 36318- 5104 Aug, [facility] [address] [place] [address] Aug, Alcohol abuse F10.10 [facility] [id number] [place] [address] 14106- 7887 Aug, [facility] [address] [place] [address] Jul, Alcohol abuse F10.10 [facility] [address] [place] [address] Jul, Alcohol abuse F10.10 [facility] [id number] [place] [address] 35006- 0142 23 Jul, 2016 [facility] [address] [place] [address] 16 Jul, 2016 Alcohol abuse F10.10 [facility] [address] [place] [address] Jul, Alcohol abuse F10.10 [facility] [address] [place] [address] Jun, Alcohol abuse F10.10 [facility] [id number] [place] [address] 85500- 8325 Jun, [facility] [address] [place] [address] Jun, Alcohol abuse F10.10 [facility] [address] [place] [address] Jun, Alcohol abuse F10.10 [facility] [id number] [place] [address] 74739- 7880 May, Episode of recurrent major depressive disorder, unspecified depression episode severity F33.9 and Alcohol abuse F10.10 [facility] [address] [place] [address] May, Alcohol abuse F10.10 [facility] [id number] [place] [address] 39707- 1141 May, [facility] [id number] [place] [address] 77121- 5741 May, Episode of recurrent major depressive disorder, unspecified depression episode severity F33.9 and Alcohol abuse F10.10 [facility] [address] [place] [address] Apr, Alcohol abuse F10.10 [facility] [address] [place] [address] Apr, Alcohol abuse F10.10 [facility] [id number] [place] [address] 21728- 8298 Apr, Alcohol abuse F10.10 and Episode of recurrent major depressive disorder, unspecified depression episode severity F33.9 [facility] [id number] [place] [address] 80374- 7659 07 Apr, 2016 [facility] [id number] [place] [address] 13494- 5724 29 Feb, 2016 Depressive disorder, not elsewhere classified F32.9 and Uncomplicated alcohol dependence F10.20 IMMUNIZATIONS No Known Immunizations SOCIAL HISTORY Never Assessed REASON FOR VISIT subab f/u PLAN OF CARE Activity Details Follow Up 1 Week Reason: VITAL SIGNS MEDICATIONS Unknown Medications RESULTS No Results PROCEDURES Procedure Date Ordered Result Body Site Alcohol and/or drug services September 29, 2016 INSTRUCTIONS MEDICATIONS ADMINISTERED No Known Medications MEDICAL (GENERAL) HISTORY Type Description Date Medical History broken neck Medical History Alcoholism Surgical History 2 neck surgeris 2016 Surgical History tonsillectomy Surgical History tubes put in ears Hospitalization History 2016 Hospitalization History tonsilectomy
--- OUTSIDE RECORDS SUMMARY | 2018-01-01 13:00 | XMS REPORT ---
Author Author ARY BURNETT Organization [facility] Address [address] [place] [address] Care Team Providers Care Rotor Blade Installer Name Role Phone ARY BURNETT Unavailable PROBLEMS Type Condition ICD9-CM Code [id number] Code Onset Dates Condition Status SNOMED Code Problem Uncomplicated alcohol dependence F10.20 Active 22804547 Problem Episode of recurrent major depressive disorder, unspecified depression episode severity F33.9 Active 998091927 Problem Alcohol abuse F10.10 Active [id number] ALLERGIES No Information ENCOUNTERS Encounter Location Date Diagnosis [facility] [address] [place] [address] Sep, [facility] [address] [place] [address] Sep, Uncomplicated alcohol dependence F10.20 [facility] [id number] [place] [address] 66757- 6543 Sep, [facility] [address] [place] [address] Sep, Uncomplicated alcohol dependence F10.20 [facility] [id number] [place] [address] 07784- 0647 Sep, [facility] [address] [place] [address] Sep, Uncomplicated alcohol dependence F10.20 [facility] [id number] [place] [address] 22912- 4401 Sep, [facility] [address] [address] Sep, [facility] [address] [place] [address] Sep, Uncomplicated alcohol dependence F10.20 [facility] [address] [address] Sep, [facility] [id number] [place] [address] 99237- 7259 Sep, [facility] [id number] [place] [address] 290746- 9441 Sep, [facility] [address] [place] [address] Sep, Uncomplicated alcohol dependence F10.20 [facility] [id number] [place] [address] 85988- 0365 Sep, [facility] [id number] [place] [address] 94140- 7001 30 Aug, 2017 [facility] [id number] [place] [address] 37364- 8396 29 Aug, 2017 [facility] [id number] [place] [address] 51221- 3150 27 Aug, 2017 [facility] [address] [place] [address] 27 Aug, 2017 Uncomplicated alcohol dependence F10.20 [facility] [id number] [place] [address] 55878- 2205 22 Aug, 2017 [facility] [id number] [place] [address] 82991- 4293 22 Aug, 2017 [facility] [id number] [place] [address] 33217- 0244 20 Aug, 2017 [facility] [id number] [place] [address] 06011- 3387 19 Aug, 2017 [facility] [address] [place] [address] 15 Aug, 2017 Uncomplicated alcohol dependence F10.20 [facility] [id number] [place] [address] 97789- 2551 15 Aug, 2017 [facility] [id number] [place] [address] 94941- 9076 15 Aug, 2017 Uncomplicated alcohol dependence F10.20 [facility] [address] [place] [address] Aug, Uncomplicated alcohol dependence F10.20 [facility] [id number] [place] [address] 49984- 4504 Aug, [facility] [address] [place] [address] Aug, Uncomplicated alcohol dependence F10.20 [facility] [id number] [place] [address] 64236- 6832 Aug, [facility] [address] [place] [address] Aug, Uncomplicated alcohol dependence F10.20 [facility] [id number] [place] [address] 94346- 9881 Aug, [facility] [address] [place] [address] Aug, Uncomplicated alcohol dependence F10.20 [facility] [id number] [place] [address] 85689- 6700 Aug, [facility] [id number] [place] [address] 70242- 6159 Jul, [facility] [id number] [place] [address] 20953- 8779 Jul, [facility] [address] [place] [address] Jul, Uncomplicated alcohol dependence F10.20 [facility] [id number] [place] [address] 86667- 7125 Jul, [facility] [id number] [place] [address] 26512- 1359 Jul, [facility] [address] [place] [address] Jul, Uncomplicated alcohol dependence F10.20 [facility] [id number] [place] [address] 85264- 9987 Jul, [facility] [address] [place] [address] Jul, Uncomplicated alcohol dependence F10.20 [facility] [address] [place] [address]- 1513 15 Jul, 2017 [facility] [address] [place] [address] 15 Jul, 2017 Uncomplicated alcohol dependence F10.20 [facility] [address] [place] [address] 12 Jul, 2017 Uncomplicated alcohol dependence F10.20 [facility] [address] 08002- 8416 08 Jul, 2017 [facility] [address] [place] [address] 08 Jul, 2017 Uncomplicated alcohol dependence F10.20 [facility] [address] [place] [address] 06 Jul, 2017 Uncomplicated alcohol dependence F10.20 [facility] [address] [place] [address] 05 Jul, 2017 Uncomplicated alcohol dependence F10.20 [facility] [address] [place] [address] Jun, Uncomplicated alcohol dependence F10.20 [facility] [address] [place] [address] May, Uncomplicated alcohol dependence F10.20 [facility] [address] 19619- 5225 May, [facility] [id number] [place] [address] 76744- 9138 May, Routine check-up Z00.00 [facility] [address] 50465- 7377 14 May, 2017 [facility] [address] 73669- 1762 13 May, 2017 [facility] [address] 50775- 7281 29 Feb, 2017 [facility] [address] [place] [address] Feb, Uncomplicated alcohol dependence F10.20 [facility] [address] [place] [address] 27 Feb, 2017 Uncomplicated alcohol dependence F10.20 [facility] [address] [address] 47[address] 21 Feb, 2016 [facility] [address] [place] [address] 21 Feb, 2016 Uncomplicated alcohol dependence F10.20 [facility] [address] [place] [address] 14 Feb, 2016 Uncomplicated alcohol dependence F10.20 [facility] [address] [place] [address] 12 Feb, 2016 [facility]complicated alcohol dependence F10.20 [facility] [address] [address] 1324 12 Feb, 2016 [facility] [address] [place] [address] 07 Feb, 2016 Uncomplicated alcohol dependence F10.20 [facility] [id number] [place] [address] 59608- 9091 07 Feb, 2016 [facility] [address] [place] [address] 05 Feb, 2016 Uncomplicated alcohol dependence F10.20 [facility] [id number] [place] [address] 49507- 9253 05 Feb, 2016 [facility] [address] [place] [address] 30 Jan, 2017 Uncomplicated alcohol dependence F10.20 [facility] [address] [place] [address] Jan, Uncomplicated alcohol dependence F10.20 [facility] [address] [place] [address] Dec, Alcohol abuse F10.10 and Uncomplicated alcohol dependence F10.20 [facility] [address] [place] [address] Dec, Alcohol abuse F10.10 [facility] [address] [place] [address] Dec, Alcohol abuse F10.10 [facility] [address] [place] [address] Dec, Alcohol abuse F10.10 [facility] [address] [place] [address] Nov, Alcohol abuse F10.10 [facility] [id number] [address] 9140 Nov, [facility] [address] [place] [address] Nov, Alcohol abuse F10.10 [facility] [address] [place] [address] Nov, Alcohol abuse F10.10 [facility] [id number] [place] [address] 29113- 2667 Nov, [facility] [id number] [place] [address] 59752- 6225 Nov, [facility] [id number] [place] [address] 97544- 6957 October, [facility] [address] [place] [address] October, Alcohol abuse F10.10 [facility] [id number] [place] [address] 65500- 0548 October, [facility] [id number] [place] [address] 70318- 6379 October, [facility] [id number] [place] [address] 41377- 5933 October, [facility] [address] [place] [address] October, Alcohol abuse F10.10 [facility] [address] [place] [address] October, Alcohol abuse F10.10 [facility] [id number] [place] [address] 75108- 4389 Sep, Alcohol abuse F10.10 [facility] [id number] [place] [address] 73061- 4870 Sep, [facility] [address] [place] [address] Sep, Alcohol abuse F10.10 [facility] [address] [place] [address] 12007- 8686 Sep, [facility] [address] [place] [address] Sep, Alcohol abuse F10.10 [facility] [address] [place] [address] 97373- 3572 Sep, [facility] [id number] [place] [address] 83835- 2208 Sep, [facility] [id number] [place] [address] 00091- 8294 30 Aug, 2016 [facility] [address] [place] [address] Aug, Alcohol abuse F10.10 [facility] [id number] [place] [address] 67266- 6397 Aug, [facility] [address] [place] [address] Aug, Alcohol abuse F10.10 [facility] [id number] [place] [address] 61360- 1622 16 Aug, 2016 [facility] [address] [place] [address] 14 Aug, 2016 Alcohol abuse F10.10 [facility] [id number] [place] [address] 44980- 1854 Aug, [facility] [address] [place] [address] Aug, Alcohol abuse F10.10 [facility] [id number] [place] [address] 00633- 3835 Aug, [facility] [address] [place] [address] Jul, Alcohol abuse F10.10 [facility] [address] [place] [address] Jul, Alcohol abuse F10.10 [facility] [id number] [place] [address] 20857- 7561 23 Jul, 2016 [facility] [address] [place] [address] 16 Jul, 2016 Alcohol abuse F10.10 [facility] [address] [place] [address] Jul, Alcohol abuse F10.10 [facility] [address] [place] [address] Jun, Alcohol abuse F10.10 [facility] [id number] [place] [address] 35724- 6657 Jun, [facility] [address] [place] [address] Jun, Alcohol abuse F10.10 [facility] [address] [place] [address] Jun, Alcohol abuse F10.10 [facility] [id number] [place] [address] 88408- 9321 May, Episode of recurrent major depressive disorder, unspecified depression episode severity F33.9 and Alcohol abuse F10.10 [facility] [address] [place] [address] May, Alcohol abuse F10.10 [facility] [id number] [place] [address] 95979- 7012 May, [facility] [id number] [place] [address] 74584- 2264 May, Episode of recurrent major depressive disorder, unspecified depression episode severity F33.9 and Alcohol abuse F10.10 [facility] [address] [place] [address] Apr, Alcohol abuse F10.10 [facility] [address] [place] [address] Apr, Alcohol abuse F10.10 [facility] [id number] [place] [address] 67402- 0222 Apr, Alcohol abuse F10.10 and Episode of recurrent major depressive disorder, unspecified depression episode severity F33.9 [facility] [id number] [place] [address] 95497- 0025 07 Apr, 2016 [facility] [id number] [place] [address] 14440- 7637 29 Feb, 2016 Depressive disorder, not elsewhere [...] History tubes put in ears Hospitalization History [facility] 2016 Hospitalization History tonsilectomy
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
[2018-01-01] MEDS ORDERED: HYDR-3812 PO (13:19)
[2018-01-01 13:27] VITALS: BP 137/87
[2018-01-01] MEDS ORDERED: HYDROcodone/APAP 5 MG/325 MG (LORTAB) TAB PO ONE (13:30)
--- NOTE | 2018-01-11 09:31 | Diagnostic Imaging Report ---
EXAM: TIBIA/FIBULA, RIGHT, 2 VIEWS, FOOT, RIGHT, 3 VIEW INDICATION: Fall downstairs. Right lower extremity pain. COMPARISON: None. FINDINGS: Mildly angulated oblique fracture of the distal right fibular metaphysis at the level of the tibial plafond. No other fractures. Mild degenerative changes in the right first MTP joint. No radiopaque foreign bodies. IMPRESSION: Mildly angulated oblique fracture of the distal right fibular metaphysis at the level of the tibial plafond. Dictated by: Dictated on workstation # [id number]
== END 2018-01-01 13:55 | disposition home or self-care (01) ==
LOC: EDUNIT# 12:36 → ER 12:38
DX: S82.401A Unspecified fracture of shaft of right fibula, initial encounter for closed fracture (principal); W10.9XXA Fall (on) (from) unspecified stairs and steps, initial encounter; X50.0XXA Overexertion from strenuous movement or load, initial encounter
CPT/HCPCS: 73590; 73630

== ENCOUNTER 2020-07-24 12:36 | Emergency (ER) | payer SELFPAY ==
[~2020-07-24] VITALS: Ht 180 cm; Wt 81.6 kg
[~2020-07-24 12:36] MED LIST changes: +ACHD5005 PO; -MELA3TAB PO; +MELA3TAB39 PO
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
[2020-07-24 13:28] LABS: BASOPHILS # (AUTO) 0.1 10^3/uL (0.0-0.1); BASOPHILS % (AUTO) 1 % (0-10); EOSINOPHILS # (AUTO) 0.3 10^3/uL (0.0-0.3); EOSINOPHILS % (AUTO) 3 % (0-10); HEMATOCRIT 48 % (40-54); HEMOGLOBIN 16.3 g/dL (13.3-17.7); LYMPHOCYTES # (AUTO) 2.7 10^3/uL (1.0-4.0); LYMPHOCYTES % (AUTO) 30 % (12-44); MEAN CORPUSCULAR HEMOGLOBIN 29 pg (25-34); MEAN CORPUSCULAR HGB CONC 34 g/dL (32-36); MEAN CORPUSCULAR VOLUME 86 fL (80-99); MONOCYTES # (AUTO) 0.7 10^3/uL (0.0-1.0); MONOCYTES % (AUTO) 8 % (0-12); NEUTROPHILS # (AUTO) 5.2 10^3/uL (1.8-7.8); NEUTROPHILS % (AUTO) 57 % (42-75); PLATELET COUNT 268 10^3/uL (130-400)
[2020-07-24 13:41] LABS: ALBUMIN 4.7 GM/DL (3.2-4.5); CHLORIDE 109 MMOL/L (98-107); SODIUM 142 MMOL/L (135-145)
[2020-07-24 13:42] LABS: CALCIUM 9.3 MG/DL (8.5-10.1)
[2020-07-24 13:44] LABS: GLUCOSE 87 MG/DL (70-105); TOTAL PROTEIN 7.9 GM/DL (6.4-8.2)
[2020-07-24 13:45] LABS: BILIRUBIN,TOTAL 0.4 MG/DL (0.1-1.0); CARBON DIOXIDE 20 MMOL/L (21-32)
[2020-07-24 13:47] LABS: ALKALINE PHOSPHATASE 81 U/L (40-136); CREATININE SERUM 0.95 MG/DL (0.60-1.30); GFR ESTIMATED > 60
[2020-07-24 13:49] LABS: BUN/CREATININE RATIO 13
[2020-07-24 13:50] LABS: ALANINE AMINOTRANSFERASE 33 U/L (0-55); SALICYLATE < 5.0 MG/DL (5.0-20.0)
[2020-07-24 13:55] LABS: ACETAMINOPHEN < 10 UG/ML (10-30)
[2020-07-24 15:21] LABS: BILIRUBIN,URINE NEGATIVE (NEGATIVE); CLARITY,URINE CLEAR; COLOR,URINE YELLOW; GLUCOSE, URINE (UA) NEGATIVE (NEGATIVE); KETONES,URINE NEGATIVE (NEGATIVE); LEUKOCYTE ESTERASE ,URINE 1+ (NEGATIVE); NITRITE,URINE NEGATIVE (NEGATIVE); PROTEIN,URINE NEGATIVE (NEGATIVE)
[2020-07-24 15:29] LABS: BACTERIA,URINE FEW /HPF; SQUAMOUS EPITHELIAL CELL,UR 0-2 /HPF
[2020-07-24 15:35] LABS: AMPHETAMINE SCREEN, URINE NEGATIVE (NEGATIVE); BARBITURATE SCREEN URINE NEGATIVE (NEGATIVE); BENZODIAZEPINES SCREEN URINE NEGATIVE (NEGATIVE); CANNABINOID SCREEN, URINE NEGATIVE (NEGATIVE); COCAINE SCREEN URINE NEGATIVE (NEGATIVE); METHADONE STAT NEGATIVE (NEGATIVE); METHAMPHETAMINE SCREEN URINE S NEGATIVE (NEGATIVE); OPIATE SCREEN URINE NEGATIVE (NEGATIVE); OXYCODONE STAT NEGATIVE (NEGATIVE); PROPOXYPHENE STAT NEGATIVE (NEGATIVE); TRICYCLIC ANTIDEPRESSANTS SCRE NEGATIVE (NEGATIVE)
[2020-07-24] MEDS: cefTRIAXone FOR IV USE 1,000 MG in WATER (STERILE) FOR INJECTION 10 ML IV ONE ×2 (15:38→16:07)
[2020-07-24] MEDS ORDERED: LIDOCAINE 1% INJ 20 ML 20 ML VIAL INJ ONE (15:45)
[2020-07-24 20:54] VITALS: BP 100/81
[2020-07-25] MEDS ORDERED: cefTRIAXone 1,000 MG/2.86 ml vial (IM ONLY) IM SCH (09:00)
== END 2020-07-24 20:53 ==
LOC: EDUNIT# 12:36 → ER 12:38
DX: R45.851 Suicidal ideations (principal); N39.0 Urinary tract infection, site not specified; Z20.822 Contact with and (suspected) exposure to COVID-19; Z77.22 Contact with and (suspected) exposure to environmental tobacco smoke (acute) (chronic); Z82.49 Family history of ischemic heart disease and other diseases of the circulatory system
CPT/HCPCS: 80053; 80306; 81000; 85025; 87088; 87491; 87591; 93005; 93041; 99283; G0480 ×3; U0002; 36415; 80320; 80329; 87635